=== PATIENT | female | born 1995 | race Caucasian/White ===

== ENCOUNTER 2023-06-09 17:16 | Emergency (ER) | payer OTHER, SELFPAY ==
[2023-06-09 17:17] VITALS: BP 143/72; PULSE 83; RESP 18; TEMP 36.6; O2SAT 98
--- NOTE | 2023-06-09 17:55 | ED.DENTAL ---
HPI - Dental/Oral General Chief complaint: Dental/Oral Stated complaint: Rt tooth pain Source: patient Mode of arrival: ambulatory Limitations: no limitations History of Present Illness HPI Narrative: This is a 28-year-old female with a history of dental decay and recently had a fractured tooth causing pain she rates about a 7/10 with no fever no shortness of breath no nausea vomiting. MD Complaint: tooth pain Teeth map: 1. fractured tooth with surrounding gum inflammation and tender right submandibular gland. Onset (ago): day(s) Duration: constant Severity: moderate Severity scale (1-10): 7 Relieving factors: nothing Exacerbating factors: nothing Related Data Home Medications Medication Instructions Recorded Confirmed bupropion HCl 300 mg 24 hr tablet, 300 mg PO DAILY 06/09/23 06/09/23 extended release buspirone 7.5 mg tablet 7.5 mg PO BID 06/09/23 06/09/23 Allergies Allergy/AdvReac Type Severity Reaction Status Date / Time No Known Allergies Allergy Verified 06/09/23 17:36 Review of Systems Review of Systems: All systems reviewed & are unremarkable except as noted in HPI and below PMFSH Past Medical History Medical History Patient denies medical problems Family History Family History Other Diabetes mellitus Family history of arthritis Hypertension Social History Social History Smoking status: Never smoker Alcohol intake: current Exam Const: General: healthy appearing Nutritional Appearance: well nourished Orientation/consciousness: patient oriented x3 Limitations: no limitations HENMT: Other: fractured tooth right side upper with surrounding gum inflammation Neck: Neck: normal visual inspection and lymphadenopathy Chest: Chest palpation & inspection: normal inspection of the chest Resp: Effort & Inspection: normal respiratory effort Auscultation: clear to auscultation bilaterally Cardio: Rate: regular rate Rhythm: regular rhythm Course Course Emergency Course: patient will receive a dose of pain medication IM Toradol and a dose of p.o. antibiotics and will print out prescriptions for patient. Vital Signs Vital signs: Vital Signs Temperature 36.6 C 06/09/23 17:17 Pulse Rate 83 06/09/23 17:17 Respiratory Rate 18 06/09/23 17:17 Blood Pressure 143/72 H 06/09/23 17:17 Pulse Oximetry 98 06/09/23 17:17 Oxygen Delivery Room Air 06/09/23 17:17 Temperature 36.6 C 06/09/23 17:17 Pulse Rate 83 06/09/23 17:17 Respiratory Rate 18 06/09/23 17:17 Blood Pressure 143/72 H 06/09/23 17:17 Pulse Oximetry 98 06/09/23 17:17 Oxygen Delivery Room Air 06/09/23 17:17 Critical Care Time Critical Care Time Critical Care Time: No Discharge Plan Discharge Clinical Impression: Dental abscess Fracture of tooth Qualifiers: Encounter type: initial encounter Fracture type: closed Qualified Code(s): S02.5XXA - Fracture of tooth (traumatic), initial encounter for closed fracture Patient Disposition: Home, Self-Care Condition: Stable Instructions: Antibiotic Form, Dental Abscess (ED), Toothache (ED) Additional Instructions: Advised take medicine as prescribed and follow-up with Primary/ dentist as soon as possible for further evaluation and treatment. Prescriptions: New tramadol 50 mg tablet 50 mg PO Q6H PRN (Reason: pain) Qty: 20 0RF amoxicillin 500 mg tablet 500 mg PO TID Qty: 30 0RF No Action buspirone 7.5 mg tablet 7.5 mg PO BID bupropion HCl 300 mg tablet extended release 24 hr 300 mg PO DAILY Follow-up/Referrals: UNKNOWN,DOCTOR [Primary Care Provider] - Stand Alone Forms: Work/School Release IP Time of Disposition: 18:00
[2023-06-09 18:19] VITALS: BP 140/70; PULSE 81; RESP 18; TEMP 37; O2SAT 99
[2023-06-09] MEDS: KETOROLAC (*BKC) 60 MG/2 ML VIAL IM (18:25)
[2023-06-09] MEDS: AMOXICILLIN 500 MG CAPSULE PO (18:25)
== END 2023-06-09 18:36 | disposition home or self-care (01) ==
PROVIDERS: Emergency Provider Emergency Medicine
DX: K04.7 Periapical abscess without sinus (principal); S02.5XXA Fracture of tooth (traumatic), initial encounter for closed fracture; Z79.899 Other long term (current) drug therapy; X58.XXXA Exposure to other specified factors, initial encounter
CPT/HCPCS: 96372; 99283; A9270; J1885

== ENCOUNTER 2023-06-23 16:59 | Emergency (ER) | payer OTHER, SELFPAY ==
[2023-06-23 17:04] VITALS: BP 133/86; PULSE 82; RESP 19; TEMP 36.9; O2SAT 100
[2023-06-23 17:15] LABS: Bilirubin Urine Negative (Negative); Blood Urine 3+ (Negative); Color Urine Light Yellow (Yellow); Glucose Urine UA Negative (Negative); Ketones Urine Negative (Negative); Leukocyte Esterase Ur 2+ LEU/UL (Negative); Nitrate Urine Negative (Negative); Protein Urine 2+ (Negative); Specific Grav Ur >= 1.030 (1.010-1.020); Urobilinogen Urine 0.2 mg/dL (0.2-1.0)
[2023-06-23 17:24] LABS: Appearance Urine Cloudy (Clear)
[2023-06-23 17:25] LABS: Add Urine Microscopic? YES; Bacteria Urine 3+ /hpf; Mucus Urine Heavy /lpf; RBC Urine >100 /hpf (0-2); Squamous Epithelial Cell Urine Moderate /hpf (Few); WBC Clumps Urine Present /hpf; WBC Urine 21-30 /hpf (0-3)
--- NOTE | 2023-06-23 17:31 | ED.FEMALEGU ---
HPI - Female Genitourinary General Chief complaint: Urogenital-Female Stated complaint: UTI Time Seen by Provider: 06/23/23 17:02 Source: patient Mode of arrival: ambulatory Limitations: no limitations History of Present Illness HPI Narrative: this is a 28-year-old female well presents with some urinary symptoms with dysuria bladder fullness feels she has a yeast infection recently was treated sinus infection with antibiotics. There is no flank pain no fever chills no hematuria. MD elicited complaint: dysuria Severity: moderate Related Data Home Medications Medication Instructions Recorded Confirmed bupropion HCl 300 mg 24 hr tablet, 300 mg PO DAILY 06/09/23 06/23/23 extended release buspirone 7.5 mg tablet 7.5 mg PO BID 06/09/23 06/23/23 Allergies Allergy/AdvReac Type Severity Reaction Status Date / Time No Known Allergies Allergy Verified 06/23/23 17:07 Review of Systems Review of Systems: All systems reviewed & are unremarkable except as noted in HPI and below PMFSH Past Medical History Medical History Patient denies medical problems Family History Family History Other Diabetes mellitus Family history of arthritis Hypertension Social History Social History Smoking status: Never smoker Alcohol intake: current Exam Const: General: healthy appearing Nutritional Appearance: well nourished Orientation/consciousness: patient oriented x3 Limitations: no limitations Chest: Chest palpation & inspection: normal inspection of the chest Resp: Effort & Inspection: normal respiratory effort Cardio: Rate: regular rate Rhythm: regular rhythm GI: GI Palp: Yes Soft to palpation Auscultation: normal bowel sounds : Other: Suprapubic tenderness with palpation Skin: General skin exam: normal color Rashes: no rashes Course Course Emergency Course: patient with a UA that shows urinary tract infection, recently completed a course of antibiotics for sinus infection and has a vaginal yeast infection, will give a dose of Diflucan 150mg 1 time dose here in the ER and start the patient on a dose of Macrobid. Vital Signs Vital signs: Vital Signs Temperature 36.9 C 06/23/23 17:04 Pulse Rate 82 06/23/23 17:04 Respiratory Rate 19 06/23/23 17:04 Blood Pressure 133/86 06/23/23 17:04 Pulse Oximetry 100 06/23/23 17:04 Oxygen Delivery Room Air 06/23/23 17:04 Temperature 36.9 C 06/23/23 17:04 Pulse Rate 82 06/23/23 17:04 Respiratory Rate 19 06/23/23 17:04 Blood Pressure 133/86 06/23/23 17:04 Pulse Oximetry 100 06/23/23 17:04 Oxygen Delivery Room Air 06/23/23 17:04 MDM - Female Genitourinary Lab Data Labs: Lab Results 06/23/23 Range/Units 17:07 Urine Color Light yellow (Yellow) Urine Appearance Cloudy A (Clear) Urine pH 6.0 (5.0-8.0) Ur Specific [place] >= 1.030 H (1.010-1.020) Urine Protein 2+ H (Negative) Urine Glucose (UA) Negative (Negative) Urine Ketones Negative (Negative) Ur Blood (Man) 3+ H (Negative) Urine Nitrate Negative (Negative) Urine Bilirubin Negative (Negative) Urine Urobilinogen 0.2 (0.2-1.0) mg/dL Leukocyte Esterase Rfl 2+ H (Negative) LUIS ENRIQUE/UL Urine RBC >100 H (0-2) /hpf Urine WBC 21-30 H (0-3) /hpf Urine WBC Clumps Present H (None) /hpf Ur Squamous Epith Cells Moderate H (Few) /hpf Urine Bacteria 3+ H (None) /hpf Urine Mucus Heavy H /lpf Urine Characteristics Clear Critical Care Time Critical Care Time Critical Care Time: No Discharge Plan Discharge Clinical Impression: Vaginal yeast infection Urinary tract infection Qualifiers: Urinary tract infection type: acute cystitis Hematuria presence: without
[2023-06-23] MEDS: NITROFURANTOIN MONOHYD MACROCR 100 MG CAP PO (17:37)
[2023-06-23] MEDS: FLUCONAZOLE 150 MG TABLET PO (17:37)
[2023-06-23 17:40] VITALS: BP 133/86; PULSE 82; RESP 19; TEMP 36.9; O2SAT 100
--- NOTE | 2023-06-26 15:40 | PC.NURSE ---
PRELIMINARY URINE CULTURE RESULTS: ISOLATE1: GREATER THAN 100,000 CFU/ML OF E COLI. TO AWAIT C&S PER DR MARTINEZ
--- NOTE | 2023-06-27 12:29 | PC.NURSE ---
reviewed urine culture, pt started on macrobid, no changes needed at this time per dr carrillo
== END 2023-06-23 17:40 | disposition home or self-care (01) ==
PROVIDERS: Emergency Provider Emergency Medicine
DX: N30.00 Acute cystitis without hematuria (principal); B37.31 Acute candidiasis of vulva and vagina
CPT/HCPCS: 81001; 87077; 87086; 87088; 87186; 99283; A9270

== ENCOUNTER 2023-07-20 21:07 | Emergency (ER) | payer OTHER, SELFPAY ==
[2023-07-20 21:07] VITALS: BP 133/93; PULSE 88; RESP 18; TEMP 36.6; O2SAT 100
--- NOTE | 2023-07-20 21:34 | ED.DENTAL ---
HPI - Dental/Oral General Chief complaint: Dental/Oral Stated complaint: dental abscess Time Seen by Provider: 07/20/23 21:17 Source: patient Mode of arrival: ambulatory Limitations: no limitations History of Present Illness HPI Narrative: Patient is a 28-year-old female with poor dentition and swollen left face. She woke up this evening from having a nap and further noted to left face swelling with some dental pain. She has been having dental pain for the past few days. She has a plan to see a dentist when she can get off of work. Complaint: tooth pain Location: Tooth # (10 and 11) Onset (ago): day(s) (3) Duration: constant Severity: moderate Severity scale (1-10): 5 Relieving factors: nothing Exacerbating factors: chewing, cold, heat and drinking fluids Context: history of dental caries and poor dental care Associated symptoms: gum swelling Treatment prior to arrival: none Related Data Home Medications Medication Instructions Recorded Confirmed bupropion HCl 300 mg 24 hr tablet, 300 mg PO DAILY 06/09/23 07/20/23 extended release buspirone 7.5 mg tablet 7.5 mg PO BID 06/09/23 07/20/23 hydroxyzine pamoate 25 mg capsule 25 mg PO BID 07/20/23 07/20/23 trazodone 50 mg tablet 50 mg PO HS 07/20/23 07/20/23 Allergies Allergy/AdvReac Type Severity Reaction Status Date / Time No Known Allergies Allergy Verified 07/20/23 21:08 [facility] Past Medical History Medical History Patient denies medical problems Family History Family History Other Diabetes mellitus Family history of arthritis Hypertension Social History Social History Smoking status: Never smoker Alcohol intake: current Exam Const: General: healthy appearing Nutritional Appearance: well nourished Orientation/consciousness: patient oriented x3 HENMT: Head: normal to inspection Ears: external ears normal Face/Nose/Sinus: Normal external nose present Other: Generally poor dentition with severe decay at tooth 10 and 11 where the pain is present; gingivitis; left cheek swelling; no abscesses Eyes: Conjunctivae: conjunctivae normal Pupils: Equal, round and reactive pupils present EOM: EOMs intact bilaterally Neck: Neck: normal visual inspection Chest: Chest palpation & inspection: normal inspection of the chest Resp: Effort & Inspection: normal respiratory effort and not labored Auscultation: clear to auscultation bilaterally and no crackles Cardio: Rate: regular rate Rhythm: regular rhythm Heart sounds: no murmurs GI: Inspection: non-distended GI Palp: Yes Soft to palpation and No Tenderness to palpation present (GI) Auscultation: normal bowel sounds : General: Yes bladder normal to palpation Back/Spine/Pelvis: Back: no CVA tenderness Skin: General skin exam: normal color Rashes: no rashes Wounds: no wounds Neuro: General: patient oriented x3 Cranial nerves: Yes Nystagmus not present Speech: normal speech Extrem: General: normal to inspection Psych: Mental Status: mental status grossly normal Affect: normal affect Attitude: cooperative Course Vital Signs Vital signs: Vital Signs Temperature 36.6 C 07/20/23 21:07 Pulse Rate 88 07/20/23 21:07 Respiratory Rate 18 07/20/23 21:07 Blood Pressure 133/93 H 07/20/23 21:07 Pulse Oximetry 100 07/20/23 21:07 Oxygen Delivery Room Air 07/20/23 21:07 Temperature 36.6 C 07/20/23 21:07 Pulse Rate 88 07/20/23 21:07 Respiratory Rate 18 07/20/23 21:07 Blood Pressure 133/93 H 07/20/23 21:07 Pulse Oximetry 100 07/20/23 21:07 Oxygen Delivery Room Air 07/20/23 21:07 MDM - Dental/Oral MDM Narrative Medical decision making narrative: patient is a 28-year-old female with poor dentition and dental pain on the left upper teeth and left face swelling. Dental
[2023-07-20] MEDS: AMOXICILLIN/CLAVULANATE K 875-125 MG TAB 1 TABLET PO (21:41)
[2023-07-20] MEDS: KETOROLAC (*BKC) 60 MG/2 ML VIAL IM (21:43)
== END 2023-07-20 21:55 | disposition home or self-care (01) ==
PROVIDERS: Emergency Provider Emergency Medicine
DX: R68.84 Jaw pain (principal); Z79.899 Other long term (current) drug therapy
CPT/HCPCS: 96372; 99283; A9270; J1885

== ENCOUNTER 2023-12-11 20:54 | Emergency (ER) | payer OTHER, SELFPAY ==
[2023-12-11 20:59] VITALS: BP 110/76; PULSE 106; RESP 18; TEMP 36.4; O2SAT 99
--- NOTE | 2023-12-11 21:01 | ED.EAR ---
HPI - Ear Problem General Chief complaint: Ear Stated complaint: ear pain Time Seen by Provider: 12/11/23 20:56 Source: patient Mode of arrival: ambulatory Limitations: no limitations History of Present Illness HPI Narrative: 28 year old female presents to the Emergency Department complaining of intense itching to bilateral ear canals and some ear pain. Patient states it began yesterday. Concerned that her dogs have ear mites and that she may have contracted them. MD Complaint: ear pain and other (intense itching to bilateral ear canals) Location: bilateral Duration: constant Severity: moderate Relieving factors: nothing Exacerbating factors: nothing Related Data Home Medications Medication Instructions Recorded Confirmed bupropion HCl 300 mg 24 hr tablet, 300 mg PO DAILY 06/09/23 12/11/23 extended release buspirone 7.5 mg tablet 7.5 mg PO BID 06/09/23 12/11/23 hydroxyzine pamoate 25 mg capsule 25 mg PO BID 07/20/23 12/11/23 trazodone 50 mg tablet 50 mg PO HS 07/20/23 12/11/23 Allergies Allergy/AdvReac Type Severity Reaction Status Date / Time No Known Allergies Allergy Verified 07/20/23 21:08 Review of Systems Review of Systems: All systems reviewed & are unremarkable except as noted in HPI and below Constitutional: Constitutional: Reports as per HPI Eyes: Eyes: Reports as per HPI ENT: Reports system reviewed and no additional complaints, except as documented Cardiovascular: Cardiovascular: Reports as per HPI Respiratory: Respiratory: Reports as per HPI Gastrointestinal: Gastrointestinal: Reports as per HPI Genitourinary: Genitourinary: Reports no additional female genitourinary complaints Musculoskeletal: Musculoskeletal: Reports no additional musculoskeletal complaints Neurologic: Reports system reviewed and no additional complaints, except as documented PMFSH Past Medical History Medical History Patient denies medical problems Family History Family History Other Diabetes mellitus Family history of arthritis Hypertension Social History Social History Smoking status: Never smoker Alcohol intake: current Exam Const: General: healthy appearing Nutritional Appearance: well nourished Orientation/consciousness: patient oriented x3 Limitations: no limitations HENMT: Head: normal to inspection Ears: external ears normal (no definite ear mite noted in canal) Face/Nose/Sinus: Normal external nose present Face and sinus: normal facial exam Mouth: Yes Normal oral and palatal mucosa present Eyes: Pupils: Equal, round and reactive pupils present EOM: EOMs intact bilaterally Direct Ophthalmoscopy: no photophobia Neck: Neck: normal visual inspection Chest: Chest palpation & inspection: normal inspection of the chest Resp: Effort & Inspection: normal respiratory effort Cardio: Rate: regular rate GI: Inspection: non-distended Skin: General skin exam: normal color Neuro: General: patient oriented x3 Speech: normal speech Gait exam (Neuro): Normal gait present Other: grossly normal Extrem: General: normal to inspection Psych: Mental Status: mental status grossly normal Course Course Emergency Course: 28 y/o female presents to the ED c/o bilateral intense itching to ear canals. Onset yesterday. States her dogs have ear mites and concerned she may now also. PE: no definite ear mites noted in canals Tx: cortisporin otic susp Rx and Instructions Discharge Plan Discharge Clinical Impression: Ear itching Condition: Stable Instructions: Antibiotic Form, Antibiotic/Anti-inflammatory Combinations (Into the ear) Additional Instructions: Use medication as prescribed Follow up Primary Care Physician Patient Language: Romanian Prescriptions: No Action buspirone 7.5 mg tablet 7
[2023-12-11] MEDS: NEOMYCIN/POLYMYXIN/HYDROCORT OT SUSP 10 ML BTL (*BKC) 3 DROP EACH EAR (21:05)
[2023-12-11 21:15] VITALS: BP 122/85; PULSE 74; RESP 18; O2SAT 99
== END 2023-12-11 21:15 | disposition home or self-care (01) ==
PROVIDERS: Emergency Provider Emergency Medicine
DX: L29.8 Other pruritus (principal); Z79.899 Other long term (current) drug therapy
CPT/HCPCS: 99281; A9270

== ENCOUNTER 2023-12-22 20:10 | Emergency (ER) | payer OTHER, SELFPAY ==
[2023-12-22 20:13] VITALS: BP 130/92; PULSE 93; RESP 18; TEMP 36.6; O2SAT 97
[2023-12-22 20:20] VITALS: BP 130/92; PULSE 93; RESP 18; TEMP 36.6; O2SAT 97
[2023-12-22 20:25] LABS: Bilirubin Urine Negative (Negative); Blood Urine Negative (Negative); Color Urine Light Yellow (Yellow); Glucose Urine UA Negative (Negative); Ketones Urine Trace (Negative); Leukocyte Esterase Ur 2+ LEU/UL (Negative); Nitrate Urine Negative (Negative); Protein Urine Negative (Negative); Specific Grav Ur >= 1.030 (1.010-1.020); Urobilinogen Urine 0.2 mg/dL (0.2-1.0)
[2023-12-22 20:33] LABS: Add Urine Microscopic? YES; Amorphous Sediment Urine Moderate; Appearance Urine Cloudy (Clear); Bacteria Urine 4+ /hpf; Mucus Urine Heavy /lpf; RBC Urine 0-2 /hpf (0-2); Squamous Epithelial Cell Urine Many /hpf (Few); WBC Urine 16-20 /hpf (0-3)
--- NOTE | 2023-12-22 20:38 | ED.FEMALEGU ---
HPI - Female Genitourinary General Chief complaint: Urogenital-Female Stated complaint: urogenital female Time Seen by Provider: 12/22/23 20:14 Source: patient Mode of arrival: ambulatory Limitations: no limitations History of Present Illness HPI Narrative: this is a 28-year-old female who presents with lower back pain and urine hesitancy with no dysuria no hematuria no fever chills no abdominal pain no nausea vomiting or diarrhea constipation. MD elicited complaint: back pain and flank pain Onset (ago): day(s) Related Data Home Medications Medication Instructions Recorded Confirmed bupropion HCl 300 mg 24 hr tablet, 300 mg PO DAILY 06/09/23 12/22/23 extended release buspirone 7.5 mg tablet 7.5 mg PO BID 06/09/23 12/22/23 hydroxyzine pamoate 25 mg capsule 25 mg PO BID 07/20/23 12/22/23 trazodone 50 mg tablet 50 mg PO HS 07/20/23 12/22/23 Allergies Allergy/AdvReac Type Severity Reaction Status Date / Time No Known Allergies Allergy Verified 07/20/23 21:08 Review of Systems Review of Systems: All systems reviewed & are unremarkable except as noted in HPI and below PMFSH Past Medical History Medical History Patient denies medical problems Family History Family History Other Diabetes mellitus Family history of arthritis Hypertension Social History Social History Smoking status: Never smoker Alcohol intake: current Exam Const: General: healthy appearing Nutritional Appearance: well nourished Orientation/consciousness: patient oriented x3 Limitations: no limitations Resp: Effort & Inspection: normal respiratory effort Auscultation: clear to auscultation bilaterally Cardio: Rate: regular rate Rhythm: regular rhythm GI: GI Palp: Yes Soft to palpation Auscultation: normal bowel sounds : General: Yes bladder normal to palpation Urinary Catheter: Urinary Catheter: patent and draining and urine cloudy Back/Spine/Pelvis: Back: CVA tenderness Skin: General skin exam: normal color Rashes: no rashes Course Course Emergency Course: Urinalysis shows 4+ bacteria consistent with urinary tract infection a dose of IM 1g ceftriaxone was administered. Vital Signs Vital signs: Vital Signs Temperature 36.6 C 12/22/23 20:13 Pulse Rate 93 12/22/23 20:13 Respiratory Rate 18 12/22/23 20:13 Blood Pressure 130/92 H 12/22/23 20:13 Pulse Oximetry 97 12/22/23 20:13 Oxygen Delivery Room Air 12/22/23 20:13 Temperature 36.6 C 12/22/23 20:20 Pulse Rate 93 12/22/23 20:20 Respiratory Rate 18 12/22/23 20:20 Blood Pressure 130/92 H 12/22/23 20:20 Pulse Oximetry 97 12/22/23 20:20 Oxygen Delivery Room Air 12/22/23 20:20 MDM - Female Genitourinary Lab Data Labs: Lab Results 12/22/23 Range/Units 20:15 Urine Color Light yellow (Yellow) Urine Appearance Cloudy A (Clear) Urine pH 6.0 (5.0-8.0) Ur Specific [place] >= 1.030 H (1.010-1.020) Urine Protein Negative (Negative) Urine Glucose (UA) Negative (Negative) Urine Ketones Trace H (Negative) Ur Blood (Man) Negative (Negative) Urine Nitrate Negative (Negative) Urine Bilirubin Negative (Negative) Urine Urobilinogen 0.2 (0.2-1.0) mg/dL Leukocyte Esterase Rfl 2+ H (Negative) LUIS ENRIQUE/UL Urine RBC 0-2 (0-2) /hpf Urine WBC 16-20 H (0-3) /hpf Ur Squamous Epith Cells Many H (Few) /hpf Amorphous Sediment Moderate H (None) Urine Bacteria 4+ H (None) /hpf Urine Mucus Heavy H /lpf Critical Care Time Critical Care Time Critical Care Time: No Discharge Plan Discharge Clinical Impression: Urinary tract infection Patient Disposition: Home, Self-Care Condition: Stable Instructions: Antibiotic Form, Urinary Tract Infection in Women (ED) Additional Instructions:
[2023-12-22] MEDS: cefTRIAXone 1 GM, LIDOCAINE HCL 1% LOCAL INJ 2.1 ML IM (20:43)
--- NOTE | 2023-12-25 12:52 | PC.NURSE ---
FINAL URINE CULTURE RESULTS: NO GROWTH
== END 2023-12-22 21:10 | disposition home or self-care (01) ==
PROVIDERS: Emergency Provider Emergency Medicine
DX: N39.0 Urinary tract infection, site not specified (principal); Z79.899 Other long term (current) drug therapy
CPT/HCPCS: 81001; 87086; 96372; 99283; J0696

== ENCOUNTER 2024-08-21 13:35 | Emergency (ER) | payer OTHER, SELFPAY ==
[2024-08-21 13:58] VITALS: BP 141/76; PULSE 96; RESP 18; TEMP 36.6; O2SAT 96
--- OUTSIDE RECORDS SUMMARY | 2024-08-21 14:52 | XMS_ITS | CONTINUITY OF CARE DOCUMENT ---
Author Name mery ordonez Address Unknown Organization [facility] Address [address] [place] [address] Phone [phone] Care Team Providers Care Sed [employer] Teacher Name Role Phone Adi Lopez MD Unavailable Adi Lopez MD Unavailable INSURANCE PROVIDERS Payer name Policy type / Coverage type [place] [employer] ID [place] MEDICA[place] Medicaid [id number]
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
--- OUTSIDE RECORDS SUMMARY | 2024-08-21 14:52 | XMS_ITS ---
Author Organization [facility] Address [address] [place] [address] Care Team Providers Care Transfill Technician Name Role Phone Lo Castro Primary Care Provider REASON FOR VISIT 6 month f/u Encounters Encounter Location Date Provider Diagnosis [address] [place] [address] 04/14/2024 Lo Castro Plan Of Treatment No Information Progress Notes * Dodie GILBERTDOB:[birth year] (29 yo F)Acc No.[id number]:04/14/2024 UNLOCKED PROGRESS NOTE Patient: Dodie LARSON Provider: LEATHA Merrill, WEB DEVELOPMENT MANAGER, SLURRY MIXER-C :1995 A ge:29 Y S ex:Female Date:04/14/2024 Address:[address] [place], [place] [id number] Subjective: * Chief Complaints: * 1 . 6 month f/u. * Medical History: Objective: * Vitals: Assessment: Plan: * Treatment: * * Electronic signature of Devon Csatro , [id number] on 08/21/2024 at 02:52 PM MEDICAL RECORDS SPECIALIST Sign off status: Pending * Provider: LEATHA Merrill, WEB DEVELOPMENT MANAGER, SLURRY MIXER-C Date: Generated for [employer] crews/Dank/eTransmitting on: 0 08/21/2024 02:52 PM MEDICAL RECORDS SPECIALIST
--- OUTSIDE RECORDS SUMMARY | 2024-08-21 14:53 | XMS_ITS | Patient Health Record ---
Author Organization On license of [facility] Address [address] [place] [address] Care Team Providers Care Miter Grinder Operator Name Role Phone Lo Castro Primary Care Provider Lorraine Post Unavailable [phone] Sierra Bhatt Unavailable [phone] Allergies No Known Allergies Reason For Referral No Information Medications Medication SIG (Take, Route, Frequency, Duration) Notes Start Date End Date Status Wellbutrin XL 150 MG 1 tablet in the mor kimmy Orally Once a day for 30 days Active busPIRone HCl 15 MG as directed Orally H fpc a tablet in the morning AND one full tablet in the evening for 30 days Active hydrOXYzine Pamoate 25 MG 1 capsule as n eeded Orally One to two times daily for 30 days Active traZODone HCl 50 MG 1 tablet at bedtime as needed Orally Once a day for 30 days Active Social History Tobacco Use: Social History Observation Description Date Details (start date - stop date) Current Smoker NA - NA Dont use, Tobacco Use/Smoking Question Answer Notes Are you a current every day smoker Additional Findings: Tobacco User Moderate cigar ette smoker (10-19 cigs/day) Problems Problem Type SNOMED Code ICD Code Onset Dates Problem Status W/U Status Risk Notes Problem Generalized anxiety disorder (47327025) Generalized anxiety disorder (F41.1) Active confirmed Problem Major depression (700766957) Major depression (F32.9) Active confirmed continue to eval for bipolar chemistry Problem Methamphetamine abuse (289117319) Methamphetamine abuse (F15.10) Active confirmed reports no use since first week of September 2022 Problem Sleep disturbance (03202658) Sleep disturbance, unspecified (G47.9) Active confirmed Encounters Encounter Location Date Provider Diagnosis [address] [address] 09/19/2023 Lo Castro Major depression F32 .9 ; Sleep disturbance, unspecified G47.9 ; Generalized anxiety disorder F41.1 and Methamphetamine abuse F15.10 [facility] [address] [address] 04/15/2024 Loalyson Castro Major depression F32 .9 ; Sleep disturbance, unspecified G47.9 ; Generalized anxiety disorder F41.1 and Methamphetamine abuse F15.[address] [address] 06/24/2024 Lo Castro [address] [address] 09/14/2023 Lorraine Post Major depression F32 .9 ; Sleep disturbance, unspecified G47.9 and Generalized anxiety disorder F41.[address] [address] 11/30/2023 [place] [address] 12/11/[address] [address] 04/01/2024 Lo Castro Assessments Encounter Date Diagnosis (ICD Code) Assessment Notes Treatment Notes Treatment Clinical Notes Section Notes 09/14/2023 Major depression (ICD-10 - F32.9) continue to eval for bipolar chemistry 09/19/2023 Major depression (ICD-10 - F32.9) continue to eval for bipolar chemistry 04/15/2024 Major depression (ICD-10 - F32.9) continue to eval for bipolar chemistry Decreasing due to internal restlessness/tremor. Discussed r/b/se in length. 04/15/2024 Sleep disturbance, unspecified (ICD-10 - G47.9) 09/19/2023 Sleep disturbance, unspecified (ICD-10 - G47.9) 09/14/2023 Sleep disturbance, unspecified (ICD-10 - G47.9) 09/19/2023 Generalized anxiety disorder (ICD-10 - F41.1) 09/14/2023 Generalized anxiety disorder (ICD-10 - F41.1) 04/15/2024 Generalized anxiety disorder (ICD-10 - F41.1) 09/19/2023 Methamphetamine abuse (ICD-10 - F15.10) reports no use since first week of September 2022 Reports sobriety has been going well. Encouraged groups/counseling. 04/15/2024 Methamphetamine abuse (ICD-10 - F15.10) reports no use since first week of September 2022 Reports sobriety has been going well. States 2 months with no use of anything besides one cup of coffee. Encouraged groups/counseling. 09/19/2023 Other Reasons, potential benefits, potential risks, interactions [...] May also contact the 24-hour crisis hotline ([facility]), refer to the closest emergency room or [...] assess appearance, affect, AIMS, or vital signs. 04/15/2024 Other Reasons, potential benefits, potential risks, [...] AIMS, or vital signs. Plan Of Treatment No Information Insurance Providers Payer Name Payer Address Payer Phone Subscriber Number Group Number Insured Name Patient Relationship to Insured Coverage Start Date Coverage End Date [id number] [address] [place] [address] [id number] Dodie Rashid Self - patient is the insured 3 [employer] [address] [place] [address] [id number] Dodie Rashid Self - patient is the insured 3 Medical (General) History Surgical History Surgery Date(Month/Year) tubing surgery (1 year old) 1994 dilatation and curettage (miscarriage) 2 016 Hospitalization History Reason Date(Month/Year) [facility] [place] 2021 [facility] 2022
--- OUTSIDE RECORDS SUMMARY | 2024-08-21 14:53 | XMS_ITS ---
Author Organization Formerly [facility] Address [address] [place] [address] Care Team Providers Care Subway Conductor Name Role Phone Lo Castro Primary Care Provider REASON FOR VISIT Encounters Encounter Location Date Provider Diagnosis [address] [place] [address] 06/24/2024 Lo Castro Plan Of Treatment No Information Progress Notes * Dodie GILBERTDOB:[birth year] (29 yo F)Acc No.[id number]:06/24/2024 UNLOCKED PROGRESS NOTE Patient: Abelardo ALFREDDodie HERNANDEZ :1995 A ge:29 Y S ex:Female Address:[address] [place] [address], [id number] * * Date:
--- OUTSIDE RECORDS SUMMARY | 2024-08-21 14:53 | XMS_ITS | Data Portability ---
Author Organization [facility] [place] [facility] Address [address] [place] [address] Care Team Providers Care Balance Staff Staker Name Role Phone LORETO RENDON Basic Sciences Professor Assessment Encounter Date Assessment Date Assessment LastModified by Organization Details LastModified Time 07/07/2020 07/07/2020 Natanael Dickson PA-S Not available 07/07/2020 15:38:27 Plan of Treatment Reminders Order Date Submit Date Provider Last Modified By Organization Details Last Modified Time Details Appointments None recorded. Lab vitamin D, 25-hydroxy , total, serum 2020 [facility], [address] [facility], [facility] [address], [place], [address], 08:21:50 HbA1c (hemoglobi n A1c), blood 2020 [facility], [address] [facility], [facility] [address], [place], [address], 08:21:49 TSH, ultra-sens itive, serum 2020 [facility], [address], [place], [address], 08:21:51 CMP, serum or plasma 2020 [facility], [address], [place], [address], 08:21:45 lipid panel, serum 2020 [facility], [address], [place], [address], 08:21:47 CBC 2020 [facility], [address], [place], [address], 08:21:46 mthfr (methylene tetrahydro folate reductase) mutation, blood/tiss ue 2020 021 [facility], [address], [address], [place], [address], 09:57:07 CBC w/ auto diff 2020 021 [facility], [address], [address], [place], [address], 13:30:18 CMP, serum or plasma 2020 021 [facility], [address], [address], [place], [address], 13:30:19 lh + FSH, serum 2020 021 [facility], [address]aylee [address], [address], [place], [address], 13:30:20 estradiol, serum 2020 021 [facility], [address]ay[address], [address], [place], [address], 13:30:20 TSH, ultra-sens itive, serum 2020 021 [facility], [address], [address], [place], [address], 1 13:30:19 HbA1c (hemoglobi n A1c), blood 2020 021 [facility], [address] [facility] [address], [address], [place], [address], 1 13:30:19 testostero ne, total, serum 2020 021 [facility], [address] [facility] [address], [address], [place], [address], 1 13:30:20 dhea-sulfa te, serum 2020 021 [facility], [address] [place] [address], [address], [place], [address], 1 13:30:19 CT + NG + TV, DNA, urine/swab 2020 021 [facility], [address] [facility], [address], [place], [address], 1 13:30:21 bacterial vaginosis + vaginitis panel, vaginal 2014 015 [facility], [address], [place], [address], 5 10:34:30 HSV (1+2) DNA, qual, PCR, unspecifie d specimen 2014 015 [email or web address], [address], [place], [address], 5 10:34:30 test, urine 2014 015 [email or web address] In-Office Order, Internal Use Only DO Not Attach Compendium DO Not Attach Compendium, Do Not Delete/merge, [id number] 5 12:15:52 urinalysis , dipstick 2014 015 [email or web address] In-Office Order, Internal Use Only DO Not Attach Compendium DO Not Attach Compendium, Do Not Delete/merge, [id number] 5 12:15:52 test, urine 2013 014 [email or web address] In-Office Order, Internal Use Only DO Not Attach Compendium DO Not Attach Compendium, Do Not Delete/merge, [id number] 5 13:46:12 urinalysis , dipstick 2013 014 [email or web address] In-Office Order, Internal Use Only DO Not Attach Compendium DO Not Attach Compendium, Do Not Delete/merge, [id number] 5 13:46:12 Referral None recorded. Procedures None recorded. Surgeries None recorded. Imaging XR, hysterosal pingogram 2020 021 [facility] [[email or web address] ([facility]), [address] [place], [address], 15:07:05 Medication Orders 28 mg iron-800 mcg tablet 2020 021 [id number], [address] [facility], [place], [place], [id number], 09:57:45 Patient TargetsNo targets recorded. Patient Instructions Encounter Date Encounter Id Patient Instructions Last Modified By Organization Details Last Modified Time 07/07/2020 [id number] Quitting Tobacco : Care Instructions Not available 07/08/2020 09:57:15 03/29/2021 [id number] influenza (flu) vaccine: care instructions Not available 03/29/2021 10:18:01 A healthy lifest yle: care instructions Not available 03/29/2021 10:18:01 Learning About Benefits of Quitting Smoking Not available 03/29/2021 10:18:02 tobacco cessation Not availabl e 03/29/2021 10:18:02 gastroesophageal reflux disease (GERD): care instructions Not available 03/29/2021 10:21:47 Increase intake of fresh fruits, and vegetables. Avoid packaged foods and fast foods. Follow a low salt diet, drink at least 8-10 8oz glasses of water a day, exercise most days of the week. Take all medications as prescribed. Keep appointments with PCP and all specialists. Not available 03/29/2021 10:14:38 follow up as nee ded, yearly to keep established with provider Not available 03/29/2021 10:18:26 Reason for Referral None Reported. Results Created Date Observation Date Name Description Value Unit Range Abnormal Flag Note LastModifiedBy Organization Detail LastModifiedTime 08/12/19 15 08/12/2014 urina lysis , dipst ick Leukocytes Small Not Available In-Offi ce Order Internal Use Only DO Not Attach Compendium DO Not Attach Compendium, Do Not Delete/merge, [id number] 08/12/2014 16:55:49 08/12/1908/12/2014 urina lysis , dipst ick Nitrite negati ve Not Available In-Office Order Internal Use Only DO Not Attach Compendium DO Not Attach Compendium, Do Not Delete/merge, 08/12/2014 16:55:49 08/12/1908/12/2014 urina lysis , dipst ick Urobilinogen .2 Not Available In-Of fice Order Internal Use Only DO Not Attach Compendium DO Not Attach Compendium, Do Not Delete/merge, 08/12/2014 16:55:49 08/12/19 15 08/12/2014 urina lysis , dipst ick Protein Negati ve Not Available In-Office Order Internal Use Only DO Not Attach Compendium DO Not Attach Compendium, Do Not Delete/merge, 08/12/2014 16:55:49 08/12/1908/12/2014 urina lysis , dipst ick pH 6.0 Not Available In-Office Order Internal Use Only DO Not Attach Compendium DO Not Attach Compendium, Do Not Delete/merge, 08/12/2014 16:55:49 08/12/19 15 08/12/2014 urina lysis , dipst ick Blood Modera te Not Available In-Office Order Internal Use Only DO Not Attach Compendium DO Not Attach Compendium, Do Not Delete/merge, 08/12/2014 16:55:49 08/12/19 15 08/12/2014 urina lysis , dipst ick Specific Sellers 1.025 Not Available In-Off ice Order Internal Use Only DO Not Attach Compendium DO Not Attach Compendium, Do Not Delete/merge, 08/12/2014 16:55:49 08/12/1908/12/2014 urina lysis , dipst ick Ketone Negati ve Not Available In-Office Order Internal Use Only DO Not Attach Compendium DO Not Attach Compendium, Do Not Delete/merge, 08/12/2014 16:55:49 08/12/1908/12/2014 urina lysis , dipst ick Bilirubin Negati ve Not Available In-Office Order Internal Use Only DO Not Attach Compendium DO Not Attach Compendium, Do Not Delete/merge, 08/12/2014 16:55:49 08/12/1908/12/2014 urina lysis , dipst ick Glucose Negati ve Not Available In-Office Order Internal Use Only DO Not Attach Compendium DO Not Attach Compendium, Do Not Delete/merge, 08/12/2014 16:55:49 08/12/1908/12/2014 urina lysis , dipst ick Appearance Clear Not Available In-Offi ce Order Internal Use Only DO Not Attach Compendium DO Not Attach Compendium, Do Not Delete/merge, 08/12/2014 16:55:49 08/12/1908/12/2014 urina lysis , dipst ick Color Yellow Not Available In-Office Order Internal Use Only DO Not Attach Compendium DO Not Attach Compendium, Do Not Delete/merge, 08/12/2014 16:55:49 08/12/1908/12/2014 pregn gustavo test, urine HCG negati ve Not Available In-Office Order Internal Use Only DO Not Attach Compendium DO Not Attach Compendium, Do Not Delete/merge, [id number] 08/12/2014 16:55:49 05/11/20 14 05/11/2014 urina lysis , dipst ick Leukocytes Negati ve Not Available In-Office Order Internal Use Only DO Not Attach Compendium DO Not Attach Compendium, Do Not Delete/merge, [id number] 05/11/2014 15:49:56 05/11/20 14 05/11/2014 urina lysis , dipst ick Nitrite negati ve Not Available In-Office Order Internal Use Only DO Not Attach Compendium DO Not Attach Compendium, Do Not Delete/merge, [id number] 05/11/2014 15:49:56 05/11/20 14 05/11/2014 urina lysis , dipst ick Urobilinogen .2 Not Available In-Of fice Order Internal Use Only DO Not Attach Compendium DO Not Attach Compendium, Do Not Delete/merge, 05/11/2014 15:49:56 05/11/20 14 05/11/2014 urina lysis , dipst ick Protein Negati ve Not Available In-Office Order Internal Use Only DO Not Attach Compendium DO Not Attach Compendium, Do Not Delete/merge, 05/11/2014 15:49:56 05/11/20 14 05/11/2014 urina lysis , dipst ick pH 6.0 Not Available In-Office Order Internal Use Only DO Not Attach Compendium DO Not Attach Compendium, Do Not Delete/merge, 05/11/2014 15:49:56 05/11/20 14 05/11/2014 urina lysis , dipst ick Blood Negati ve Not Available In-Office Order Internal Use Only DO Not Attach Compendium DO Not Attach Compendium, Do Not Delete/merge, 05/11/2014 15:49:56 05/11/20 14 05/11/2014 urina lysis , dipst ick Specific Sellers 1.025 Not Available In-Off ice Order Internal Use Only DO Not Attach Compendium DO Not Attach Compendium, Do Not Delete/merge, 05/11/2014 15:49:56 05/11/20 14 05/11/2014 urina lysis , dipst ick Ketone Negati ve Not Available In-Office Order Internal Use Only DO Not Attach Compendium DO Not Attach Compendium, Do Not Delete/merge, [id number] 05/11/2014 15:49:56 05/11/20 14 05/11/2014 urina lysis , dipst ick Bilirubin Negati ve Not Available In-Office Order Internal Use Only DO Not Attach Compendium DO Not Attach Compendium, Do Not Delete/merge, [id number] 05/11/2014 15:49:56 05/11/20 14 05/11/2014 urina lysis , dipst ick Glucose Negati ve Not Available In-Office Order Internal Use Only DO Not Attach Compendium DO Not Attach Compendium, Do Not Delete/merge, [id number] 05/11/2014 15:49:56 05/11/20 14 05/11/2014 urina lysis , dipst ick Appearance Slight ly Cloudy Not Available In-Office Order Internal Use Only DO Not Attach Compendium DO Not Attach Compendium, Do Not Delete/merge, [id number] 05/11/2014 15:49:56 05/11/20 14 05/11/2014 urina lysis , dipst ick Color Yellow Not Available In-Office Order Internal Use Only DO Not Attach Compendium DO Not Attach Compendium, Do Not Delete/merge, [id number] 05/11/2014 15:49:56 05/11/20 14 05/11/2014 pregn gustavo test, urine HCG negati ve Not Available In-Office Order Internal Use Only DO Not Attach Compendium DO Not Attach Compendium, Do Not Delete/merge, [id number] 05/11/2014 15:49:56 08/12/19 15 08/17/2014 bacte rial vagin osis + vagin itis panel , vagin al atopobium vaginae LOW - 0 score Not Available [facility] ([facility]) [address] [facility], [place], [address], 08/18/2014 14:35:15 08/12/19 15 08/17/2014 bacte rial vagin osis + vagin itis panel , vagin al bvab 2 LOW - 0 score Not Available [facility] ([facility]) [address] [facility], [place], [address], 08/18/2014 14:35:15 08/12/19 15 08/17/2014 bacte rial vagin osis + vagin itis panel , vagin al megasphaera 1 LOW - 0 score CALCU LATE TOTAL SCORE BY SCARLETT Barron THE 3 INDIV IDUAL BACTE RIAL VAGIN OSIS (BV) MARKE R SCORE S TOGET HER. TOTAL SCORE IS INTER PRETE D FOLLO WS: . TOTAL SCORE 0-1: INDIC ATES THE ABSEN CE OF BV. TOTAL SCORE 2: INDET ERMIN ATE FOR BV. ADDIT IONAL CLINI STAN DATA SHOUL D BE EVALU ATED TO ESTAB FREDY A DIAGN OSIS. TOTAL SCORE 3-6: INDIC ATES THE PRESE NCE OF BV. . THIS TEST WAS DEVEL OPED AND ITS PERFO RMANC E CRISTIN CTERI STICS DETER MINED BY [employer]. IT HAS NOT BEEN CLEAR ED OR APPRO FLORA BY THE FOOD AND DRUG ADMIN ISTRA TION. THE FDA HAS DETER MINED THAT SUCH CLEAR ANCE OR APPRO NYDIA IS NOT NECES CHARLEEN. Not Available [facility] ([facility]) [address] [place], [address], 08/18/2014 14:35:15 08/12/19 15 08/17/2014 bacte rial vagin osis + vagin itis panel , vagin al jasmina albicans, JOHN NEGATI VE negati ve Not Available [facility] ([facility]) [address] [place], [address], 08/18/2014 14:35:15 08/12/19 15 08/17/2014 bacte rial vagin osis + vagin itis panel , vagin al jasmina glabrata, JOHN NEGATI VE negati ve THIS TEST WAS DEVEL OPED AND ITS PERFO RMANC E CRISTIN CTERI STICS DETER MINED BY [facility]. IT HAS NOT BEEN CLEAR ED OR APPRO FLORA BY THE FOOD AND DRUG ADMIN ISTRA TION. THE FDA HAS DETER MINED THAT SUCH CLEAR ANCE OR APPRO NYDIA IS NOT NECES CHARLEEN. Not Available [facility] ([facility]) [address] [place], [address], 08/18/2014 14:35:15 08/12/19 15 08/18/2014 bacte rial vagin osis + vagin itis panel , vagin al trich vag by JOHN NEGATI VE negati ve Not Available [facility] ([facility]) [address] [place], [address], 08/18/2014 14:35:15 08/12/19 15 08/18/2014 bacte rial vagin osis + vagin itis panel , vagin al chlamydia trachomatis, JOHN NEGATI VE negati ve Not Available [facility] ([facility]) [address] [place], [address], 08/18/2014 14:35:15 08/12/19 15 08/18/2014 bacte rial vagin osis + vagin itis panel , vagin al neisseria gonorrhoeae, JOHN NEGATI VE negati ve Not Available [facility] ([facility]) [address] [place], [address], 08/18/2014 14:35:15 08/12/19 15 08/15/2014 HSV (1+2) DNA, qual, PCR, unspe cifie d speci men hsv 1 JOHN NEGATI VE negati ve Not Available [facility] ([facility]) [address] [place], [address], 08/18/2014 14:35:16 08/12/19 15 08/15/2014 HSV (1+2) DNA, qual, PCR, unspe cifie d speci men hsv 2 JOHN NEGATI VE negati ve Not Available [facility] ([facility]) [address] [place], [address], 08/18/2014 14:35:16 03/29/20 21 03/30/2021 COMP. METAB OLIC PANEL (14) glucose 85 mg/dL 65-99 Not Available [facility] ([facility]) [address] [place], [address], 03/30/2021 08:21:45 03/29/2003/30/2021 COMP. METAB OLIC PANEL (14) BUN 8 mg/dL 6-20 Not Available [facility] ([facility]) [address] [facility], [place], [address], 03/30/2021 08:21:45 03/29/2003/30/2021 COMP. METAB OLIC PANEL (14) creatinine 0.57 mg/dL 0.57-1 .00 Not Available [facility] ([facility]) [address] [facility], [place], [address], 03/30/2021 08:21:45 03/29/2003/30/2021 COMP. METAB OLIC PANEL (14) eGFR if nonafricn AM 127 mL/mi n/1.7 3 >59 Not Available [facility] ([facility]) [address] [facility], [place], [address], 03/30/2021 08:21:45 03/29/2003/30/2021 COMP. METAB OLIC PANEL (14) eGFR if africn AM 147 mL/mi n/1.7 3 >59 Lab teetee curre ntly repor ts eGFR in compl iance with the curre nt recom menda tions of the Natio nal Kidne y Found ation . [facility] will updat e repor ting as new guide lines are publi shed from the NKF-A SN Task force . Not Available [facility] ([facility]) [address] [facility], [place], [address], 03/30/2021 08:21:45 03/29/2003/30/2021 COMP. METAB OLIC PANEL (14) BUN/creatini ne ratio 14 9-23 Not Available [facility] ([facility]) [address] [facility], [place], [address], 03/30/2021 08:21:45 03/29/20 21 03/30/2021 COMP. METAB OLIC PANEL (14) sodium 139 mmol/ L 134-14 4 Not Available [facility] ([facility]) [address] [place], [address], 03/30/2021 08:21:45 03/29/20 21 03/30/2021 COMP. METAB OLIC PANEL (14) potassium 4.4 mmol/ L 3.5-5. 2 Not Available [facility] ([facility]) [address] [place], [address], 03/30/2021 08:21:45 03/29/2003/30/2021 COMP. METAB OLIC PANEL (14) chloride 103 mmol/ L 96-106 Not Available [facility] ([facility]) [address] [facility], [place], [address], 03/30/2021 08:21:45 03/29/20 21 03/30/2021 COMP. METAB OLIC PANEL (14) carbon dioxide, total 22 mmol/ L 20-29 Not Available [facility] ([facility]) [address] [place], [address], 03/30/2021 08:21:45 03/29/20 21 03/30/2021 COMP. METAB OLIC PANEL (14) calcium 9.6 mg/dL 8.7-10 .2 Not Available [facility] ([facility]) [address] [place], [address], 03/30/2021 08:21:45 03/29/20 21 03/30/2021 COMP. METAB OLIC PANEL (14) protein, total 7.2 g/dL 6.0-8. 5 Not Available [facility] ([facility]) [address] [place], [address], 03/30/2021 08:21:45 03/29/20 21 03/30/2021 COMP. METAB OLIC PANEL (14) albumin 4.5 g/dL 3.9-5. 0 Not Available [facility] ([facility]) [address] [facility], [place], [address], 03/30/2021 08:21:45 03/29/20 21 03/30/2021 COMP. METAB OLIC PANEL (14) globulin, total 2.7 g/dL 1.5-4. 5 Not Available [facility] ([facility]) [address] [facility], [place], [address], 03/30/2021 08:21:45 03/29/2003/30/2021 COMP. METAB OLIC PANEL (14) A/G ratio 1.7 1.2-2. 2 Not Available [facility] ([facility]) [address] [facility], [place], [address], 03/30/2021 08:21:45 03/29/2003/30/2021 COMP. METAB OLIC PANEL (14) bilirubin, total 0.3 mg/dL 0.0-1. 2 Not Available [facility] ([facility]) [address] [facility], [place], [address], 03/30/2021 08:21:45 03/29/2003/30/2021 COMP. METAB OLIC PANEL (14) alkaline phosphatase 147 IU/L 44-121 above high normal Ple ase note refer ence inter nydia vasquez e Not Available [facility] ([facility]) [address] [facility], [place], [address], 03/30/2021 08:21:45 03/29/2003/30/2021 COMP. METAB OLIC PANEL (14) AST (SGOT) 40 IU/L 0-40 Not Available [facility] ([facility]) [address] [facility] [address], [place], [address], 03/30/2021 08:21:45 03/29/2003/30/2021 COMP. METAB OLIC PANEL (14) ALT (SGPT) 71 IU/L 0-32 above high normal Not Available [facility] ([facility]) [address] [place], [address], 03/30/2021 08:21:45 03/29/2003/30/2021 CBC, NO DIFFE RENTI AL/PL ATELE T WBC 11.3 x10e3 /uL 3.4-10 .8 above high normal Not Available [facility] ([facility]) [address] [facility], [place], [address], 03/30/2021 08:21:46 03/29/2003/30/2021 CBC, NO DIFFE RENTI AL/PL ATELE T RBC 4.97 x10e6 /uL 3.77-5 .28 Not Available [facility] ([facility]) [address] [place], [address], 03/30/2021 08:21:46 03/29/2003/30/2021 CBC, NO DIFFE RENTI AL/PL ATELE T hemoglobin 14.5 g/dL 11.1-1 5.9 Not Available [facility] ([facility]) [address] [place], [address], 03/30/2021 08:21:46 03/29/2003/30/2021 CBC, NO DIFFE RENTI AL/PL ATELE T hematocrit 43.6 % 34.0-4 6.6 Not Available [facility] ([facility]) [address] [place], [address], 03/30/2021 08:21:46 03/29/2003/30/2021 CBC, NO DIFFE RENTI AL/PL ATELE T MCV 88 fL 79-97 Not Available [facility] ([facility]) [address] [place], [address], 03/30/2021 08:21:46 03/29/2003/30/2021 CBC, NO DIFFE RENTI AL/PL ATELE T MCH 29.2 pg 26.6-3 3.0 Not Available [facility] ([facility]) [address] [place], [address], 03/30/2021 08:21:46 03/29/2003/30/2021 CBC, NO DIFFE RENTI AL/PL ATELE T MCHC 33.3 g/dL 31.5-3 5.7 Not Available [facility] ([facility]) [address] [place], [address], 03/30/2021 08:21:46 03/29/2003/30/2021 CBC, NO DIFFE RENTI AL/PL ATELE T RDW 12.2 % 11.7-1 5.4 Not Available [facility] ([facility]) [address] [place], [address], 03/30/2021 08:21:46 03/29/2003/30/2021 CBC, NO DIFFE RENTI AL/PL ATELE T NRBC TRACER 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 Not Available [facility] ([facility]) [address] [place], [address], 03/30/2021 08:21:46 03/29/20 21 03/30/2021 LIPID PANEL cholesterol, total 198 mg/dL 100-19 9 Not Available [facility] ([facility]) [address] [place], [address], 03/30/2021 08:21:47 03/29/2003/30/2021 LIPID PANEL triglyceride s 188 mg/dL 0-149 above high normal Not Available [facility] ([facility]) [address] [place], [address], 03/30/2021 08:21:47 03/29/20 21 03/30/2021 LIPID PANEL HDL cholesterol 34 mg/dL >39 below low normal Not Available [facility] ([facility]) [address] [place], [address], 03/30/2021 08:21:47 03/29/2003/30/2021 LIPID PANEL VLDL cholesterol stan 34 mg/dL 5-40 Not Available [facility] ([facility]) [address] [place], [address], 03/30/2021 08:21:47 03/29/2003/30/2021 LIPID PANEL LDL chol calc (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 6 above high normal Predi abete s: 5.7 - 6.4 Diabe linda: >6.4 Glyce sandy contr ol for adult s with diabe linda: <7.0 Not Available [facility] ([facility]) [address] [place], [address], 03/30/2021 08:21:48 03/29/2003/30/2021 VITAM IN D, 25-HY DROXY vitamin D, 25-hydroxy 18.3 NG/mL 30.0-1 00.0 below low normal Vitam in D defic iency has been defin ed by the Insti tute of Medic ine and an Endoc rine Socie ty pract ice guide line as a level of serum 25-OH vitam in D less than 20 ng/mL (1,2) . The Endoc rine Socie ty went on to [facility] defin e vitam in D insuf ficie ncy as a level betwe en 21 and 29 ng/mL (2). 1. IOM (Inst itute of Medic ine). 2010. Dieta ry refer ence intak es for calci um and D. Hiral german [place]: [facility] . 2. Karthik tian MF, Jim maynard [place], Matthew off-F mireille i FOWLER, et al. Evalu ation , treat ment, and preve ntion of vitam in D defic iency : an Endoc rine Socie ty clini stan pract ice guide line. JCEM. 2010; 96(7) :1911 -30. Not Available [facility] ([facility]) [address] [facility], [place], [address], 03/30/2021 08:21:50 03/29/2003/30/2021 TSH RFX ON ABNOR MAL TO FREE T4 TSH 3.770 uIU/m L 0.450- 4.500 Not Available [facility] ([facility]) [address] [facility], [place], [address], 03/30/2021 08:21:51 Result Notes None recorded. Problems No Known Problems Procedures Surgical History Date Name Laterality Status Provider Name and Address Organization Details Recorded Time 06/18/19 16 Dilation and curettage completed Asiya Wilson MA [facility] 07/07/2020 10:25:45 06/18/18 95 falloposcopy completed Asiya Wilson MA [facility] 07/07/2020 10:26:58 Imaging Results None recorded. Procedure Notes None recorded. Medical Equipment None Reported. Allergies No known drug allergies Medications Name Sig Start Date Stop Date Status Note LastModified by Organization Details LastModified Time Prescripti on - New 07/07 completed Not Available Not Available Not Available amoxicilli n 500 mg capsule 07/07 completed Not Available Not Available Not Available Zithromax 1 gram oral packet Take 1 packet by oral route as directed for 1 day. 07/07 completed Not Available Not Available Not Available azithromyc in 250 mg tablet 07/07 completed Not Available Not Available Not Available phenazopyr idine 200 mg tablet 07/07 completed Not Available Not Available Not Available clindamyci n HCl 150 mg capsule 07/07 completed Not Available Not Available Not Available penicillin V potassium 500 mg tablet 03/29 completed Not Available Not Available Not Available acetaminop hen 300 mg-codeine 30 mg tablet 07/07 completed Not Available Not Available Not Available ciprofloxa alexandra 500 mg tablet 07/07 completed Not Available Not Available Not Available oxycodone- acetaminop hen 5 mg-325 mg tablet 03/29 completed Not Available Not Available Not Available ibuprofen 600 mg tablet active 07/07/20 Per pt she does OTC 600 mg as needed DG RMA Not Available Not Available Not Available Sprintec (28) 0.25 mg-35 mcg tablet 07/07 completed Not Available Not Available Not Available chlorhexid ine gluconate 0.12 % mouthwash 07/07 completed Not Available Not Available Not Available ProAir HFA 90 mcg/actuat ion aerosol inhaler 07/07 completed Not Available Not Available Not Available 28 mg iron-800 mcg tablet Take 1 tablet every day by oral route with meals. 03/29 completed Not Available Not Available Not Available Vitals Date Recorded Body height Body mass index (BMI) Body weight Provider Name and Address Organization Details Last Updated DateTime 07/07/2020 170.18 cm 43.9 kg/m2 169719.86 g Asiya Wilson MA [place] - [facility] 07/07/2020 10:15:29 Date Recorded Body height Body mass index (BMI) Body weight Oxygen saturation Oxygen saturation in Arterial blood by Pulse oximetry Heart rate Respiratory rate Body temperature Systolic blood pressure Diastolic blood pressure Provider Name and Address Organization Details Last Updated DateTime 170.18 cm 40.8 kg/m2 558234. 12 g 98 % 98 % 94 /min 16 /min 98.1 [degF] 126 mm[Hg] 84 mm[Hg] Autumn Corado [place] [facility] 09:57:01 Date Recorded Body height Body mass index (BMI) Body weight Systolic blood pressure Diastolic blood pressure Provider Name and Address Organization Details Last Updated DateTime 05/11/2014 170.18 cm 32.3 kg/m2 60921.02 822 g 104 mm[Hg] 62 mm[Hg] Catie Hoang [place] [facility] 4 15:38:03 Date Recorded Body height Body mass index (BMI) Body weight Systolic blood pressure Diastolic blood pressure Provider Name and Address Organization Details Last Updated DateTime 08/12/2014 170.18 cm 33.4 kg/m2 69716.17 481 g 122 mm[Hg] 84 mm[Hg] Catie Hoang MA [place] [facility] 5 16:09:15 Social History Question Answer Notes LastModified by Organizat ion Details LastModified Time Tobacco Smoking Status Current Every Day Smoker Catie Hoang MA null, [place] - [facility] 05/11/2014 15:48:47 Do You Have An Advance Directive? No Information not available 05/11/2014 What Is Your Level Of Alcohol Consumption? Occasional Information not available 03/29/2021 Are You Blind Or Do You Have Difficulty Seeing? No Information not available 03/29/2021 Is Blood Transfusion Acceptable In An Emergency? Yes Information not available 05/11/2014 What Is Your Level Of Caffeine Consumption? Moderate Information not available 03/29/2021 How Much Tobacco Do You Chew? None Information not available 05/11/2014 In The 14 Days Before Symptom Onset, Have You Had Close Contact With A Laboratory-confir med COVID-19 While That Case Was Ill? No Information not available 03/29/2021 In The 14 Days Before Symptom Onset, Have You Had Close Contact With A Person Who Is Under Investigation For COVID-19 While That Person Was Ill? No Information not available 03/29/2021 Have You Been To An Area Known To Be High Risk For COVID-19? No Information not available 03/29/2021 Are You Currently Employed? Yes Information not available 07/07/2020 Are You Deaf Or Do You Have Serious Difficulty Hearing? No Information not available 03/29/2021 What Type Of Diet Are You Following? REGULAR Information not available 05/11/2014 Which Illicit Or Recreational Drugs Have You Used? None Information not available 05/11/2014 Do You Or Have You Ever Used E-cigarettes Or Vape? Never Used Electronic Cigarettes Information not available 07/07/2020 Education 12 Information no t available 05/11/2014 What Is Your Occupation? [employer] Information not available 03/29/2021 Are There Any Guns Present In Your Home? No Information not available 03/29/2021 Live Alone Or With Others? With Others Information not available 05/11/2014 What Was The Date Of Your Most Recent Tobacco Screening? 03/29/2021 Information not available 03/29/2021 How Many Children Do You Have? 0 Information not available 05/11/2014 Performs Monthly Self-breast Exam? Yes Information no t available 07/07/2020 Do You Use Protection During Sex? No Information not available 07/07/2020 What Is Your Relationship Status? Single Fiance Information not available 07/07/2020 Do You Use Your Seat Belt Or Car Seat Routinely? Yes Information not available 03/29/2021 Seat Belts Used Routinely Yes Information not available 05/11/2014 Are You Sexually Active? Yes Information not available 05/11/2014 Do You Have Smoke And Carbon Monoxide Detectors In Your Home? Yes Information not available 03/29/2021 At What Age Did You Start Smoking Tobacco? 16 Information not available 03/29/2021 Are You Passively Exposed To Smoke? No Information no t available 03/29/2021 How Much Tobacco Do You Smoke? 0.25 PPD Information not available 05/11/2014 General Stress Level Low Information not available 07/07/2020 Do You Feel Stressed (tense, Restless, Nervous, Or Anxious, Or Unable To Sleep At Night)? LE0880-4 Information not available 03/29/2021 Do You Use Any Illicit Or Recreational Drugs? Yes Information not available 03/29/2021 Do You Use Sunscreen Routinely? No Information not available 05/11/2014 On What Date Was Tobacco Cessation Counseling Provided? 07/07/2020 Information not available 07/07/2020 How Many Years Have You Smoked Tobacco? 10 Information not available 03/29/2021 Sex: Unknown Functional Status Question Answer Note LastModified by Organizat ion Details LastModified Time Are you able to care for yourself? Yes Information not available 03/29/2021 What is your exercise level? Occasional Information not available 05/11/2014 Mental Status None recorded. Family History Relationship Description Onset Age of this Age Resolved Age Notes LastModified by Organization Details LastModified Time Maternal Grandfather Diabetes mellitus [email or web address] Not available 2020 10:28:26 Father Diabetes mellitus [email or web address] Not available 2020 10:28:26 Mother Cerebrovascu lar accident Mother had 2 stroke s. [email or web address] Not available 07/07/2020 10:30:03 Medical History Condition Response High Blood Pressure Y Atrial Fibrillation N Thyroid Problems N Kidney or Bladder Problems Y Blood Clots N Depression Y Anemia N Heart Attack ([place]) N Diabetes N Anxiety Disorder N Seizures/Epilepsy N Acid Reflux (GERD) Y Cancer N Stroke N Asthma N Allergies N ADHD N High Cholesterol N Hepatitis N Liver Disease N Heart Failure N Gynecological History Statement/Question Response Abnormal Pap N Flow Moderate Date of LMP 02/27/2021 On BCP's at Conception? N STIs/STDs Y HPV Vaccine N Duration of Flow (days) 3 Age at Menarche 13 Current Control Method None Sexually Active? Y Menses Monthly N Date of Last Pap Smear Sexual Problems? N LMP Approximate Desired Control Method Seeking Pre gnancy Obstetrics History GPAL:G 1 P 0 0 1 0 Type Value Spontaneous 1 Living 0 Total 1 Immunizations Vaccine Type Date Status Note Provider Nam e and Address Organization Details Recorded Time Influenza, split virus, quadrivalent, preservative completed Autumn Corado MA [place], [place] - [facility] 03/29/2021 10:40:33 Past Encounters Encounter ID Performer Location Encounter Start Date Encounter Closed Date Diagnosis/Indication Diagnosis SNOMED-CT Code Diagnosis ICD10 Code Diagnosis Note [id number] ALONZO Hackett (CAN REFORMING MACHINE OPERATOR) [address] [place] [address] 05/11/2014 14:50:42 05/11/2014 16:24:28 Gynecologic examination [id number] ALONZO Hackett (CAN REFORMING MACHINE OPERATOR) [address] [place] [address] 08/12/2014 15:51:11 08/12/2014 16:46:40 At increased risk of sexually transmitted infection [id number] COURTNEY ROUSE (CAN REFORMING MACHINE OPERATOR) [address] [place] [address] 07/07/2020 08:57:08 07/09/2020 10:57:47 Reproductive care management 392705168 Z31.9 25yo F presents via phone for fertility discussion . Patient has been trying to get for the past 6 months. She is tracking her temperatur e and timing her ovulation. Periods regular until last Feb, amenorrhei c Feb-Jun. LMP 06/26/20. H/o chlamydia. F/u labs and HSG. Pt defers semen analysis at this time. Start . Continuing tracking cycle and start OPK. RTC in 1 month for pap. 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 Administra tion of influenza vaccine 98712247 Z23 Obesity 922656203 E66.9 advised low fat, low cholestero l diet, regular exercise and weight reduction. Family his tory of premature coronary heart disease 719750819 Z82.49 father passed in 40's, hx of [place] and pacemaker, Tobacco user 818584620 Z 72.0 Smoking cessation encouraged . Gastroesop hageal reflux disease without esophagitis 922725234 K21.9 infrequent ; diet advised Health Concerns Section Related Observation LastModified by Organization Detai ls LastModified Time None Recorded Concern Status LastModified by Organization Details LastModified Time None Recorded Advance Directives Directive N: Payers Encounter Date Sequence Insurance Name Policy Number Policy Dyson Covered Member ID Dyson Member ID Guarantor Name 05/11/2014 1 [facility] (MEDICAID HMO) [id number] [facility] [id number] [facility] 08/12/2014 1 [facility] (MEDICAID HMO) [id number] Dodie Rashid [id number] [facility] 07/07/2020 1 [facility] (MEDICAID HMO) [id number] Dodie Rashid [id number] [facility] 03/29/2021 1 [facility] (MEDICAID HMO) [id number] [facility] [id number] [facility] Notes Date Note Type Note Provider Name and Address Organization Details Recorded Time 07/07/2020 text/html This is a 25 yea r old female with a history of chlamydia and miscarriage presents for fertility discussion. She reports h/o D&C in 2016 and possible miscarriage 3 years ago. She states 3 years ago she was on drugs, fell on her stomach and she started having significant bleeding but never sought out medical attention. She states her periods were regular until February of 2020. She went from February 2020 to June 2020 without a period. She states she has been trying to get for the past 6 months. She admits to keeping track of her temperature and timing her ovulation. She does not remember the last time she had an CAN REFORMING MACHINE OPERATOR or doctor visit. Partner does not have any children. She denies abnormal discharge, pelvic pain, vaginal symptoms, fevers, chills, n/v, urinary symptoms, changes in BMs. COURTNEY ROUSE Attn: [address] [place], [address], [place] [facility] 07/08/2020 13:26:58 03/29/2021 text/html Here to est care , has not had a pcp in a very long time,trying to conceive but irreg. periods, using juan to track, last year went 6 mos with out onehx of two miscarriages, Xiao Kaminski APN, SUPERINTENDENT TERMINAL-C Attn: [address] [place], [address], [place] [facility] 03/29/2021 14:05:50 OBGyn Episode Ob Episode Information Episode Created Date Number of Fetuses Patient Bloodtype Patient rh Status Prepregnancy Weight lbs Domestic Partner Domestic Partner Phone Father Name Civil Cad Tech Status 07/07/19 21 1 CLOSED Fetus Data First Name Last Name Admitted to NICU Weight (g) Sex Living Outcome Pediatric Complications Fetus ID Race Codes Race Delivery Type , Spontane ous [id number] Josh Calculation Initial Josh Date Initial Exam Date Initial Exam Provider Initial Ultrasound Date Last Menstrual Period Date Ultra Sound Weeks Gestation 0 Eighteen To Twenty Week Josh Update Ultra Sound Date Fundal Height At Umbil Quickening Date Ultra Sound Latest Weeks Gestation Final Josh Confirmed By Final Josh Confirmed Date Final Josh Date Ultra Sound Latest Days Gestation 0 0 Menstrual History Last Menstrual Date Menses Monthly On Bcp Conception Prior Menses Frequency Hcg Plus Date Menarche Onset Age Delivery Information Delivery Date Delivery Type Labor Anesthesia Weeks Gestation Incision Type Labor Labor Length Hrs Delivered By Post Complications Tubal Sterilization Discharge Date Comments 7 Pt think s miscarria ge, did not seek medical attention at all Discharge Information Feeding Method Contraceptive Method Maternal HG B and HCT Levels Ob Episode Information Episode Created Date Number of Fetuses Patient Bloodtype Patient rh Status Prepregnancy Weight lbs Domestic Partner Domestic Partner Phone Father Name Civil Cad Tech Status 07/07/19 21 1 CLOSED Fetus Data First Name Last Name Admitted to NICU Weight (g) Sex Living Outcome Pediatric Complications Fetus ID Race Codes Race Delivery Type , Spontane ous [id number] Josh Calculation Initial Josh Date Initial Exam Date Initial Exam Provider Initial Ultrasound Date Last Menstrual Period Date Ultra Sound Weeks Gestation 0 Eighteen To Twenty Week Josh Update Ultra Sound Date Fundal Height At Umbil Quickening Date Ultra Sound Latest Weeks Gestation Final Josh Confirmed By Final Josh Confirmed Date Final Josh Date Ultra Sound Latest Days Gestation 0 0 Menstrual History Last Menstrual Date Menses Monthly On Bcp Conception Prior Menses Frequency Hcg Plus Date Menarche Onset Age Delivery Information Delivery Date Delivery Type Labor Anesthesia Weeks Gestation Incision Type Labor Labor Length Hrs Delivered By Post Complications Tubal Sterilization Discharge Date Comments 6 Discharge Information Feeding Method Contraceptive Method Maternal HG B and HCT Levels
[2024-08-21 14:57] LABS: Add Urine Microscopic? YES; Appearance Urine Cloudy (Clear); Bacteria Urine Rare /hpf; Bilirubin Urine Negative (Negative); Blood Urine Negative (Negative); Color Urine Yellow (Yellow); Glucose Urine UA Negative (Negative); Ketones Urine Negative (Negative); Leukocyte Esterase Ur Negative LEU/UL (Negative); Nitrate Urine Negative (Negative); Non Pathogenic Casts 0-2; Protein Urine Negative (Negative); RBC Urine 0-2 /hpf (0-2); Specific Grav Ur 1.013 (1.001-1.035); Squamous Epithelial Cell Urine Few /hpf (Few); Urobilinogen Urine 0.2 mg/dL (<2.0); WBC Urine 0-5 /hpf (0-3); pH Urine 7.5 (5.0-9.0)
[2024-08-21 15:26] LABS: Influenza A QL RT-PCR Negative (Negative); Influenza B QL RT-PCR Negative (Negative); RSV RNA, RT-PCR Negative (Negative); SARS-CoV-2 RNA PCR Negative (Negative)
--- OUTSIDE RECORDS SUMMARY | 2024-08-21 16:47 | XMS_ITS | CONTINUITY OF CARE DOCUMENT ---
Author Name mery ordonez Address Unknown Organization [facility] Address [address] [place] [address] Phone [phone] Care Team Providers Care Senior Architect Name Role Phone Adi Lopez MD Unavailable Adi Lopez MD Unavailable INSURANCE PROVIDERS Payer name Policy type / Coverage type [place] red alliance party ID [place] MEDICAID Medicaid [id number]
== END 2024-08-21 16:11 | disposition left against medical advice (07) ==
LOC: ANHED 15:46
PROVIDERS: Emergency Provider Emergency Medicine
DX: R51.9 Headache, unspecified (principal); Z20.822 Contact with and (suspected) exposure to COVID-19
CPT/HCPCS: 81001; 87637; 99199

== ENCOUNTER 2024-09-03 17:51 | Emergency (ER) | payer OTHER, SELFPAY ==
--- OUTSIDE RECORDS SUMMARY | 2024-09-03 17:54 | XMS_ITS ---
Author Organization [facility] Address [address] [place] [address] Care Team Providers Care Harpsichord Maker Name Role Phone Lo Castro Primary Care Provider [phone] Allergies No Known Allergies REASON FOR VISIT [...] Active Encounters Encounter Location Date Provider Diagnosis [facility] [address] [place] [address] 04/15/2024 Lo Castro Major depression F32 .9 [...] May also contact the 24-hour crisis hotline ([facility]), refer to the closest emergency [...] Notes * Dodie GILBERTDOB:[birth year] (29 yo F)Acc No.[id number]:04/15/2024 Patient: Dodie LARSON Provider: Delon Castro, MSN, MAKEUP INSTRUCTOR, STEAM SHOVEL OPERATOR-C :1995 A ge:29 Y S ex:Female Date:04/15/2024 Address:[address] [place] [address] Subjective: * Chief Complaints: * P B [...] I nterpretation M inimal Depression. S creening: Breaks Suicide Severity Rating Scale (LF) D o [...] she is going to be working at [employer]. Startes on 04/30. Medications: Reports taking MH [...] Diagno stic Procedure: [facility]- [place] 2021- [place] 2022 * Family History: F ather: . 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 * Medications: T akingWellbutrin XL 300 MG [...] May also contact the 24-hour crisis hotline ([facility]), refer to the closest emergency [...] Completed true * Provider: Delon Castro, MSN, MAKEUP INSTRUCTOR, STEAM SHOVEL OPERATOR-C Date: Generated for [employer]iny crews/Dank/eTransmitting on: 0 09/03/2024 05:54 PM CDT History and Physical Notes * HPI (History [...] she is going to be working at [employer]. Startes on 04/30. Medications: Reports taking MH [...] positive, not hurting myself. Denies SI/HI. Screening Breaks Suicide Severity Rating Scale (LF) Do you [...] CONCENTRATION No deficits ATTITUDE AND BEHAVIOR Cooperative, Velvet Weaver tive MEMORY Immediate, Recent, R emote MOOD [...]
--- OUTSIDE RECORDS SUMMARY | 2024-09-03 17:54 | XMS_ITS | CONTINUITY OF CARE DOCUMENT ---
Author Name mery ordonez Address Unknown Organization [facility] [address] [address] Address [address] [place] [address] Phone [phone] Care Team Providers Care Process Supervisor Name Role Phone Adi Lopez MD Unavailable Adi Lopez MD Unavailable [phone] INSURANCE PROVIDERS Payer name Policy type / Coverage type [place] red constitution party ID [place] MEDICAID Medicaid [id number]
--- OUTSIDE RECORDS SUMMARY | 2024-09-03 17:54 | XMS_ITS | Data Portability ---
Author Organization [facility] [place] [facility] Address [address] [place] [address] Care Team Providers Care Egg Processing Supervisor Name Role Phone LORETO RENDON Pcu Rn [phone] Assessment Encounter Date Assessment Date Assessment LastModified by Organization Details LastModified Time 07/07/2020 07/07/2020 Natanael Dickson PA-S Not available 07/07/2020 15:38:27 Plan of Treatment Reminders Order Date Submit Date Provider Last Modified By Organization Details Last Modified Time Details Appointments None recorded. Lab vitamin D, 25-hydroxy , total, serum 2020 [facility], [address] [facility] [place] [facility], [facility] [[email or web address] [address], [place], [address], 08:21:50 HbA1c (hemoglobi n A1c), blood 2020 [facility], [address] [facility] [place] [facility], [facility] [[email or web address] [address], [place], [address], 08:21:49 TSH, ultra-sens itive, serum 2020 [facility], [address], [place], [address], 08:21:51 CMP, serum or plasma 2020 [facility], [address], [place], [address], 08:21:45 lipid panel, serum 2020 [facility], [address], [address], [place], [address], 08:21:47 CBC 2020 [facility], [address], [place], [address], 08:21:46 mthfr (methylene tetrahydro folate reductase) mutation, blood/tiss ue 2020 021 [facility], Shaylee Hansen, [address], [place], [address], 09:57:07 CBC w/ auto diff 2020 021 [facility], Shaylee Hansen, [address], [place], [address], 13:30:18 CMP, serum or plasma 2020 021 [facility], Shaylee Hansen, [address], [place], [address], 13:30:19 lh + FSH, serum 2020 021 [facility], Shaylee Hansen, [address], [place], [address], 13:30:20 estradiol, serum 2020 021 [facility], Shaylee Hansen, [address], [place], [address], 13:30:20 TSH, ultra-sens itive, serum 2020 021 [facility], [address]ay[address], [address], [place], [address], 1 13:30:19 HbA1c (hemoglobi n A1c), blood 2020 021 [facility], [address] [facility], [address], [place], [address], 1 13:30:19 testostero ne, total, serum 2020 021 [facility], [address] [facility] [address], [address], [place], [address], 1 13:30:20 dhea-sulfa te, serum 2020 021 [facility], [address] [place] [address], [address], [place], [address], 1 13:30:19 CT + NG + TV, DNA, urine/swab 2020 021 [facility], [address] [facility], [address], [place], [address], 1 13:30:21 bacterial vaginosis + vaginitis panel, vaginal 2014 [facility] [address], [place], [address], 5 10:34:30 HSV (1+2) DNA, qual, PCR, unspecifie d specimen 2014 015 [facility], [address], [place], [address], 5 10:34:30 test, urine 2014 015 [email or web address] In-Office Order, Internal Use Only DO Not Attach Compendium DO Not Attach Compendium, Do Not Delete/merge, [id number] 5 12:15:52 urinalysis , dipstick 2014 015 [email or web address] In-Office Order, Internal Use Only DO Not Attach Compendium DO Not Attach Compendium, Do Not Delete/merge, [id number] 5 12:15:52 test, urine 2013 014 [email or web address] In-Office Order, Internal Use Only DO Not Attach Compendium DO Not Attach Compendium, Do Not Delete/merge, [id number] 5 13:46:12 urinalysis , dipstick 2013 014 [email or web address] In-Office Order, Internal Use Only DO Not Attach Compendium DO Not Attach Compendium, Do Not Delete/merge, [id number] 5 13:46:12 Referral None recorded. Procedures None recorded. Surgeries None recorded. Imaging XR, hysterosal pingogram 2020 021 [facility] [address] [place], [address], 15:07:05 Medication Orders 28 mg iron-800 mcg tablet 2020 021 [id number], [address] [facility], [place], [place], [id number], 09:57:45 Patient TargetsNo targets recorded. Patient Instructions Encounter Date Encounter Id Patient Instructions Last Modified By Organization Details Last Modified Time 07/07/2020 [id number] Quitting Tobacco : Care Instructions Not available 07/08/2020 09:57:15 03/29/2021 [id number] influenza (flu) vaccine: care instructions Not available [...] DO Not Attach Compendium, Do Not Delete/merge, [id number] 08/12/2014 16:55:49 08/12/1908/12/2014 urina lysis , dipst [...] 08/12/2014 urina lysis , dipst ick Specific [place] 1.025 Not Available In-Off ice Order Internal [...] DO Not Attach Compendium, Do Not Delete/merge, [id number] 08/12/2014 16:55:49 05/11/20 14 05/11/2014 urina lysis , dipst ick Leukocytes Negati ve Not Available In-Office Order Internal Use Only DO Not Attach Compendium DO Not Attach Compendium, Do Not Delete/merge, [id number] 05/11/2014 15:49:56 05/11/20 14 05/11/2014 urina lysis , dipst ick Nitrite negati ve Not Available In-Office Order Internal Use Only DO Not Attach Compendium DO Not Attach Compendium, Do Not Delete/merge, [id number] 05/11/2014 15:49:56 05/11/20 14 05/11/2014 urina lysis [...] 05/11/2014 urina lysis , dipst ick Specific [place] 1.025 Not Available In-Off ice Order Internal Use Only DO Not Attach Compendium DO Not Attach Compendium, Do Not Delete/merge, 05/11/2014 15:49:56 05/11/20 14 05/11/2014 urina lysis , dipst ick Ketone Negati ve Not Available In-Office Order Internal Use Only DO Not Attach Compendium DO Not Attach Compendium, Do Not Delete/merge, [id number] 05/11/2014 15:49:56 05/11/20 14 05/11/2014 urina lysis , dipst ick Bilirubin Negati ve Not Available In-Office Order Internal Use Only DO Not Attach Compendium DO Not Attach Compendium, Do Not Delete/merge, [id number] 05/11/2014 15:49:56 05/11/20 14 05/11/2014 urina lysis , dipst ick Glucose Negati ve Not Available In-Office Order Internal Use Only DO Not Attach Compendium DO Not Attach Compendium, Do Not Delete/merge, [id number] 05/11/2014 15:49:56 05/11/20 14 05/11/2014 urina lysis , dipst ick Appearance Slight ly Cloudy Not Available In-Office Order Internal Use Only DO Not Attach Compendium DO Not Attach Compendium, Do Not Delete/merge, [id number] 05/11/2014 15:49:56 05/11/20 14 05/11/2014 urina lysis , dipst ick Color Yellow Not Available In-Office Order Internal Use Only DO Not Attach Compendium DO Not Attach Compendium, Do Not Delete/merge, [id number] 05/11/2014 15:49:56 05/11/20 14 05/11/2014 pregn gustavo test, urine HCG negati ve Not Available In-Office Order Internal Use Only DO Not Attach Compendium DO Not Attach Compendium, Do Not Delete/merge, [id number] 05/11/2014 15:49:56 08/12/19 15 08/17/2014 bacte rial vagin osis + vagin itis panel , vagin al atopobium vaginae LOW - 0 score Not Available [facility] ([facility]) [address] [facility], [place], [address], 08/18/2014 14:35:15 08/12/19 15 08/17/2014 bacte rial vagin osis + vagin itis panel , vagin al bvab 2 LOW - 0 score Not Available [facility] ([facility]) [address] [facility], [place], [address], 08/18/2014 14:35:15 08/12/19 15 08/17/2014 bacte rial [...] E CRISTIN CTERI STICS DETER MINED BY [employer]. IT HAS NOT BEEN CLEAR ED OR APPRO FLORA BY THE FOOD AND DRUG ADMIN ISTRA TION. THE FDA HAS DETER MINED THAT SUCH CLEAR ANCE OR APPRO NYDIA IS NOT NECES CHARLEEN. Not Available [facility] ([facility]) [address] [place], [address], 08/18/2014 14:35:15 08/12/19 15 08/17/2014 bacte rial vagin osis + vagin itis panel , vagin al jasmina albicans, JOHN NEGATI VE negati ve Not Available [facility] ([facility]) [address] [place], [address], 08/18/2014 14:35:15 08/12/19 15 08/17/2014 bacte rial vagin osis + vagin itis panel , vagin al jasmina glabrata, JOHN NEGATI VE negati ve THIS TEST WAS DEVEL OPED AND ITS PERFO RMANC E CRISTIN CTERI STICS DETER MINED BY [facility]. IT HAS NOT BEEN CLEAR ED OR APPRO FLORA BY THE FOOD AND DRUG ADMIN ISTRA TION. THE FDA HAS DETER MINED THAT SUCH CLEAR ANCE OR APPRO NYDIA IS NOT NECES CHARLEEN. Not Available [facility] ([facility]) [address] [place], [address], 08/18/2014 14:35:15 08/12/19 15 08/18/2014 bacte rial vagin osis + vagin itis panel , vagin al trich vag by JOHN NEGATI VE negati ve Not Available [facility] ([facility]) [address] [place], [address], 08/18/2014 14:35:15 08/12/19 15 08/18/2014 bacte rial vagin osis + vagin itis panel , vagin al chlamydia trachomatis, JOHN NEGATI VE negati ve Not Available [facility] ([facility]) [address] [place], [address], 08/18/2014 14:35:15 08/12/19 15 08/18/2014 bacte rial vagin osis + vagin itis panel , vagin al neisseria gonorrhoeae, JOHN NEGATI VE negati ve Not Available [facility] ([facility]) [address] [place], [address], 08/18/2014 14:35:15 08/12/19 15 08/15/2014 HSV (1+2) DNA, qual, PCR, unspe cifie d speci men hsv 1 JOHN NEGATI VE negati ve Not Available [facility] ([facility]) [address] [place], [address], 08/18/2014 14:35:16 08/12/19 15 08/15/2014 HSV (1+2) DNA, qual, PCR, unspe cifie d speci men hsv 2 JOHN NEGATI VE negati ve Not Available [facility] ([facility]) [address] [place], [address], 08/18/2014 14:35:16 03/29/20 21 03/30/2021 COMP. METAB OLIC PANEL (14) glucose 85 mg/dL 65-99 Not Available [facility] ([facility]) [address] [facility] [place], [address], 03/30/2021 08:21:45 03/29/2003/30/2021 COMP. METAB OLIC PANEL (14) BUN 8 mg/dL 6-20 Not Available [facility] ([facility]) [address] [facility], [place], [address], 03/30/2021 08:21:45 03/29/2003/30/2021 COMP. METAB OLIC PANEL (14) creatinine 0.57 mg/dL 0.57-1 .00 Not Available [facility] ([facility]) [address] [facility], [place], [address], 03/30/2021 08:21:45 03/29/2003/30/2021 COMP. METAB OLIC PANEL (14) eGFR if nonafricn AM 127 mL/mi n/1.7 3 >59 Not Available [facility] ([facility]) [address] [facility], [place], [address], 03/30/2021 08:21:45 03/29/2003/30/2021 COMP. METAB OLIC PANEL [...] SN Task force . Not Available [facility] ([facility]) [address] [facility], [place], [address], 03/30/2021 08:21:45 03/29/2003/30/2021 COMP. METAB OLIC PANEL (14) BUN/creatini ne ratio 14 9-23 Not Available [facility] ([facility]) [address] [facility], [place], [address], 03/30/2021 08:21:45 03/29/20 21 03/30/2021 COMP. METAB OLIC PANEL (14) sodium 139 mmol/ L 134-14 4 Not Available [facility] ([facility]) [address] [place], [address], 03/30/2021 08:21:45 03/29/20 21 03/30/2021 COMP. METAB OLIC PANEL (14) potassium 4.4 mmol/ L 3.5-5. 2 Not Available [facility] ([facility]) [address] [place], [address], 03/30/2021 08:21:45 03/29/2003/30/2021 COMP. METAB OLIC PANEL (14) chloride 103 mmol/ L 96-106 Not Available [facility] ([facility]) [address] [facility], [place], [address], 03/30/2021 08:21:45 03/29/20 21 03/30/2021 COMP. METAB OLIC PANEL (14) carbon dioxide, total 22 mmol/ L 20-29 Not Available [facility] ([facility]) [address] [place], [address], 03/30/2021 08:21:45 03/29/20 21 03/30/2021 COMP. METAB OLIC PANEL (14) calcium 9.6 mg/dL 8.7-10 .2 Not Available [facility] ([facility]) [address] [place], [address], 03/30/2021 08:21:45 03/29/20 21 03/30/2021 COMP. METAB OLIC PANEL (14) protein, total 7.2 g/dL 6.0-8. 5 Not Available [facility] ([facility]) [address] [place], [address], 03/30/2021 08:21:45 03/29/20 21 03/30/2021 COMP. METAB OLIC PANEL (14) albumin 4.5 g/dL 3.9-5. 0 Not Available [facility] ([facility]) [address] [facility], [place], [address], 03/30/2021 08:21:45 03/29/20 21 03/30/2021 COMP. METAB OLIC PANEL (14) globulin, total 2.7 g/dL 1.5-4. 5 Not Available [facility] ([facility]) [address] [facility], [place], [address], 03/30/2021 08:21:45 03/29/2003/30/2021 COMP. METAB OLIC PANEL (14) A/G ratio 1.7 1.2-2. 2 Not Available [facility] ([facility]) [address] [facility], [place], [address], 03/30/2021 08:21:45 03/29/2003/30/2021 COMP. METAB OLIC PANEL (14) bilirubin, total 0.3 mg/dL 0.0-1. 2 Not Available [facility] ([facility]) [address] [facility], [place], [address], 03/30/2021 08:21:45 03/29/2003/30/2021 COMP. METAB OLIC PANEL (14) alkaline phosphatase 147 IU/L 44-121 above high normal Ple ase note refer ence inter nydia vasquez e Not Available [facility] ([facility]) [address] [facility], [place], [address], 03/30/2021 08:21:45 03/29/2003/30/2021 COMP. METAB OLIC PANEL (14) AST (SGOT) 40 IU/L 0-40 Not Available [facility] ([facility]) [address] [facility], [place], [address], 03/30/2021 08:21:45 03/29/2003/30/2021 COMP. METAB OLIC PANEL (14) ALT (SGPT) 71 IU/L 0-32 above high normal Not Available [facility] ([facility]) [address] [place], [address], 03/30/2021 08:21:45 03/29/2003/30/2021 CBC, NO DIFFE RENTI AL/PL ATELE T WBC 11.3 x10e3 /uL 3.4-10 .8 above high normal Not Available [facility] ([facility]) [address] [facility], [place], [address], 03/30/2021 08:21:46 03/29/2003/30/2021 CBC, NO DIFFE RENTI AL/PL ATELE T RBC 4.97 x10e6 /uL 3.77-5 .28 Not Available [facility] ([facility]) [address] [place], [address], 03/30/2021 08:21:46 03/29/2003/30/2021 CBC, NO DIFFE RENTI AL/PL ATELE T hemoglobin 14.5 g/dL 11.1-1 5.9 Not Available [facility] ([facility]) [address] [place], [address], 03/30/2021 08:21:46 03/29/2003/30/2021 CBC, NO DIFFE RENTI AL/PL ATELE T hematocrit 43.6 % 34.0-4 6.6 Not Available [facility] ([facility]) [address] [place], [address], 03/30/2021 08:21:46 03/29/2003/30/2021 CBC, NO DIFFE RENTI AL/PL ATELE T MCV 88 fL 79-97 Not Available [facility] ([facility]) [address] [place], [address], 03/30/2021 08:21:46 03/29/2003/30/2021 CBC, NO DIFFE RENTI AL/PL ATELE T MCH 29.2 pg 26.6-3 3.0 Not Available [facility] ([facility]) [address] [place], [address], 03/30/2021 08:21:46 03/29/2003/30/2021 CBC, NO DIFFE RENTI AL/PL ATELE T MCHC 33.3 g/dL 31.5-3 5.7 Not Available [facility] ([facility]) [address] [place], [address], 03/30/2021 08:21:46 03/29/2003/30/2021 CBC, NO DIFFE RENTI AL/PL ATELE T RDW 12.2 % 11.7-1 5.4 Not Available [facility] ([facility]) [address] [place], [address], 03/30/2021 08:21:46 03/29/2003/30/2021 CBC, NO DIFFE RENTI AL/PL ATELE T NRBC ZINC PLATER Not Available [facility] ([facility]) [address] [place], [address], 03/30/2021 08:21:46 03/29/20 21 03/30/2021 LIPID PANEL cholesterol, total 198 mg/dL 100-19 9 Not Available [facility] ([facility]) [address] [place], [address], 03/30/2021 08:21:47 03/29/2003/30/2021 LIPID PANEL triglyceride s 188 mg/dL 0-149 above high normal Not Available [facility] ([facility]) [address] [place], [address], 03/30/2021 08:21:47 03/29/20 21 03/30/2021 LIPID PANEL HDL cholesterol 34 mg/dL >39 below low normal Not Available [facility] ([facility]) [address] [place], [address], 03/30/2021 08:21:47 03/29/2003/30/2021 LIPID PANEL VLDL cholesterol stan 34 mg/dL 5-40 Not Available [facility] ([facility]) [address] [place], [address], 03/30/2021 08:21:47 03/29/2003/30/2021 LIPID PANEL LDL chol calc ([facility]) 130 mg/dL 0-99 above high normal Not Available [facility] ([facility]) [address] [place], [address], 03/30/2021 08:21:47 03/29/2003/30/2021 LIPID PANEL comment: ZINC PLATER Not Available [facility] ([facility]) [address] [place], [address], 03/30/2021 08:21:47 03/29/2003/30/2021 HEMOG LOBIN A1C hemoglobin A1C 6.5 % 4.8-5. 6 above high normal Predi abete s: 5.7 - 6.4 Diabe linda: >6.4 Glyce sandy contr ol for adult s with diabe linda: <7.0 Not Available [facility] ([facility]) [address] [place], [address], 03/30/2021 08:21:48 03/29/2003/30/2021 VITAM IN D, 25-HY [...] Endoc rine Socie ty went on to [facility] er defin e vitam in D insuf ficie ncy as a level betwe en 21 and 29 ng/mL (2). 1. IOM (Inst itute of Medic ine). 2010. Dieta ry refer ence intak es for calci um and D. Hiral german [place]: [facility] . 2. Karthik tian MF, Jim maynard [place], Matthew off-F mireille i FOWLER, et al. Evalu ation , treat ment, and preve ntion of vitam in D defic iency : an Endoc rine Socie ty clini stan pract ice guide line. JCEM. 2010; 96(7) :1911 -30. Not Available [facility] ([facility]) [address] [facility], [place], [address], 03/30/2021 08:21:50 03/29/2003/30/2021 TSH RFX ON ABNOR MAL TO FREE T4 TSH 3.770 uIU/m L 0.450- 4.500 Not Available [facility] ([facility]) [address] [facility], [place], [address], 03/30/2021 08:21:51 Result Notes None recorded. Problems No Known Problems Procedures Surgical History Date Name Laterality Status Provider Name and Address Organization Details Recorded Time 06/18/19 16 Dilation and curettage completed Asiya Wilson MA [facility] 07/07/2020 10:25:45 06/18/18 95 falloposcopy completed Asiya Wilson MA [facility] 07/07/2020 10:26:58 Imaging Results None recorded. Procedure [...] Not Available Not Available Sprintec (28) 0.25 mg-0.035 mg tablet 07/07 completed Not Available Not [...] Updated DateTime 07/07/2020 170.18 cm 43.9 kg/m2 370865.86 g Asiya Wilson MA [place] [facility] 07/07/2020 10:15:29 Date Recorded Body height Body mass index (BMI) Body weight Oxygen saturation Oxygen saturation in Arterial blood by Pulse oximetry Heart rate Respiratory rate Body temperature Systolic blood pressure Diastolic blood pressure Provider Name and Address Organization Details Last Updated DateTime 170.18 cm 40.8 kg/m2 798721. 12 g 98 % 98 % 94 /min 16 /min 98.1 [degF] 126 mm[Hg] 84 mm[Hg] Autumn Corado [place] [facility] 09:57:01 Date Recorded Body height Body mass index (BMI) Body weight Systolic blood pressure Diastolic blood pressure Provider Name and Address Organization Details Last Updated DateTime 05/11/2014 170.18 cm 32.3 kg/m2 55560.02 822 g 104 mm[Hg] 62 mm[Hg] Catie Hoang [place] [facility] 4 15:38:03 Date Recorded Body height Body mass index (BMI) Body weight Systolic blood pressure Diastolic blood pressure Provider Name and Address Organization Details Last Updated DateTime 08/12/2014 170.18 cm 33.4 kg/m2 99467.17 481 g 122 mm[Hg] 84 mm[Hg] Catie Hoang MA [place] [facility] 5 16:09:15 Social History Question Answer Notes LastModified by Organizat ion Details LastModified Time Tobacco Smoking Status Current Every Day Smoker Catie Hoang MA null, [place] [facility] 05/11/2014 15:48:47 Do You Have An Advance [...] Anxious, Or Unable To Sleep At Night)? [id number] Information not available 03/29/2021 Do You Use [...] N Depression Y Anemia N Heart Attack (NE) N Diabetes N Anxiety Disorder N Seizures/Epilepsy [...] virus, quadrivalent, preservative completed Autumn Corado MA [facility] 03/29/2021 10:40:33 Past Encounters Encounter ID Performer Location Encounter Start Date Encounter Closed Date Diagnosis/Indication Diagnosis SNOMED-CT Code Diagnosis ICD10 Code Diagnosis Note [id number] ALONZO Hackett (DAIRY DEPARTMENT MANAGER) [address] [place] [address] 05/11/2014 14:50:42 05/11/2014 16:24:28 Gynecologic examination [id number] ALONZO Hackett (DAIRY DEPARTMENT MANAGER) [address] [place] [address] 08/12/2014 15:51:11 08/12/2014 16:46:40 At increased risk of sexually transmitted infection [id number] COURTNEY ROUSE (DAIRY DEPARTMENT MANAGER) [address] [place] [address] 07/07/2020 08:57:08 07/09/2020 10:57:47 Reproductive care management 692703493 Z31.9 25yo F presents via phone for [...] pap. Past pregn gustavo history of miscarriage 206824098 Z87.59 Smoker 11097565 F17.985 [id number] Xiao Kaminski APN, [employer] [facility] (Adult Med) [address] [place] [address] 03/29/2021 09:49:22 04/01/2021 10:43:27 Adult health examination 793618889 Z00.01 Encouraged routine CONCEPTOR, vision, dental exams, well balanced diet. Administra tion of influenza vaccine 72647355 Z23 Obesity 098273027 E66.9 advised low fat, low cholestero l diet, regular exercise and weight reduction. Family his tory of premature coronary heart disease 495865671 Z82.49 father passed in 40's, hx of NE and pacemaker, Tobacco user 722146166 Z 72.0 Smoking cessation encouraged . Gastroesop hageal reflux disease without esophagitis 215660426 K21.9 infrequent ; diet advised Health Concerns Section Related Observation LastModified by Organization Detai ls LastModified Time None Recorded Concern Status LastModified by Organization Details LastModified Time None Recorded Advance Directives Directive N: Payers Encounter Date Sequence Insurance Name Policy Number Policy Dyson Covered Member ID Dyson Member ID Guarantor Name 05/11/2014 1 [employer] (MEDICAID HMO) [id number] [facility] [id number] [facility] 08/12/2014 1 [employer] (MEDICAID HMO) [id number] Dodie Rashid [id number] [facility] 07/07/2020 1 [employer] (MEDICAID HMO) [id number] [id number] 03/29/2021 1 [employer] (MEDICAID HMO) [id number] [facility] [id number] [facility] Notes Date Note Type Note Provider Name [...] remember the last time she had an DAIRY DEPARTMENT MANAGER or doctor visit. Partner does not have any children. She denies abnormal discharge, pelvic pain, vaginal symptoms, fevers, chills, n/v, urinary symptoms, changes in BMs. COURTNEY ROUSE Attn: Accounting[address] [place], [address], [place] [facility] 07/08/2020 13:26:58 03/29/2021 text/html Here to est care , has not had a pcp in a very long time,trying to conceive but irreg. periods, using juan to track, last year went 6 mos with out onehx of two miscarriages, Xiao Kaminski APN, [employer] Attn: Accounting[address] [facility] [place], [address], [place] [facility] 03/29/2021 14:05:50 OBGyn Episode Ob Episode Information Episode Created Date Number of Fetuses Patient Bloodtype Patient rh Status Prepregnancy Weight lbs Domestic Partner Domestic Partner Phone Father Name Fabric Inspector Status 07/07/19 21 1 CLOSED Fetus Data First Name Last Name Admitted to NICU Weight (g) Sex Living Outcome Pediatric Complications Fetus ID Race Codes Race Delivery Type , Spontane ous [id number] Josh Calculation Initial Josh Date Initial Exam [...] Domestic Partner Domestic Partner Phone Father Name Fabric Inspector Status 07/07/19 21 1 CLOSED Fetus Data First Name Last Name Admitted to NICU Weight (g) Sex Living Outcome Pediatric Complications Fetus ID Race Codes Race Delivery Type , Spontane ous [id number] Josh Calculation Initial Josh Date Initial Exam [...]
--- OUTSIDE RECORDS SUMMARY | 2024-09-03 17:55 | XMS_ITS ---
Author Organization [facility] Address [address] [place] [address] Care Team Providers Care Window Trimmer Apprentice Name Role Phone Lo Castro Primary Care Provider [phone] REASON FOR VISIT 6 month f/u Encounters Encounter Location Date Provider Diagnosis [address] [place] [address] 04/14/2024 Lo Castro Plan Of Treatment No Information Progress Notes * Dodie GILBERTDOB:[birth year] (29 yo F)Acc No.[id number]:04/14/2024 UNLOCKED PROGRESS NOTE Patient: Dodie LARSON Provider: LEATHA Merrill, LIVESTOCK SALES REPRESENTATIVE, ORDER EXPEDITER-C :1995 A ge:29 Y S ex:Female Date:04/14/2024 Address:[address] [place], [place] [id number] Subjective: * Chief Complaints: * 1 . 6 month f/u. * Medical History: Objective: * Vitals: Assessment: Plan: * Treatment: * * Electronic signature of Devon Castro , [id number] on 09/03/2024 at 05:54 PM CDT Sign off status: Pending * Provider: LEATHA Merrill, LIVESTOCK SALES REPRESENTATIVE, ORDER EXPEDITER-C Date: Generated for [employer]iny crews/Dank/Mounikasmitting on: 0 09/03/2024 05:54 PM CDT
--- OUTSIDE RECORDS SUMMARY | 2024-09-03 17:55 | XMS_ITS | Clinical Summary ---
Author Organization [facility] Address [address] [place] [address] Care Team Providers Care Software Development Analyst Name Role Phone Trinidad Dial MD Primary Care Provide r Allergies No known active allergies Medications chlorhexidine (PERIDEX) 0.12 % solution Swish 15 mL in mouth for 30 seconds then spit out twice a day after brushing teeth, 473 mL 12/01/19 20 Active acetaminophen-co deine (TYLENOL with CODEINE #3) 300-30 mg per tablet Take 1 tablet by mouth every 4 (four) hours as needed for pain 12 tablet 12/01/19 20 Active triamcinolone (KENALOG) 0.1 % cream Apply topically 3 (three) times a day Massage into area 3 times daily as directed. Collaborating physician Natanael Pandya MD 80 g 1 08/25/19 25 Active acetaminophen (TYLENOL) 500 mg tabletIndication s:Acute lymphangitis of left ankle Take 1 tablet (500 mg total) by mouth every 6 (six) hours as needed for pain Collaborating physician Natanael Pandya MD 30 tablet 08/25/19 25 Active cephalexin (KEFLEX) 500 mg capsuleIndicatio ns:Acute lymphangitis of left ankle Take 1 capsule (500 mg total) by mouth 3 (three) times a day for 7 days Collaborating physician Natanael Pandya MD 21 capsule 08/25/19 25 025 Active Problems Problem Noted Date Diagnosed Date Acute lymphangitis of left ankle 08/24/2024 Cellulitis of left ankle 08/24/2024 Estimated Date of Delivery Comme nts Yes 02/17/2025 Encounters Date Type Department Care Team Description 08/24/2024 12:34 PM CDT - 08/24/2024 12:55 PM CDT Emergency [facility] Emergency Department [address] [place] [address] Acute lymphangitis of left ankle (Primary Dx); Cellulitis of left ankle Discharge Disposition: Discharge to home or self care from Last 3 Months Social History Tobacco Use Types Packs/Day Years Used Date Smoking Tobacco: Every Day Smokeless Tobacco: Never Alcohol Use Standard Drinks/Week Comments Not Currently 0 (1 standard drink = 0.6 oz pur e alcohol) Personal Safety Answer Date Recorded Have you ever been in or are you currently in a harmful physical or emotional relationship or is someone making you feel afraid or unsafe? 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 Gender Identity Not on file Sexual Orientation Not on file Obstetrics History Para Term AB IAB SAB Ectopic Multiple Livin g Live Births 1 Date Outcome GA Total Labor Labor/2nd/3rd Weight Sex Type Anes PTL Irene A1 A5 Name Clin Current Last Filed Vital Signs Vital Sign Reading Time Taken Comments Blood Pressure 137/74 08/24/2024 12:32 PM CDT Pulse 100 08/24/2024 12:32 PM CDT Temperature 36.3 C (97.4 F) 08/24/2024 12:31 PM CDT Respiratory Rate 17 08/24/2024 12:32 PM CDT Oxygen Saturation 99% 08/24/2024 12:32 PM CDT Inhaled Oxygen Concentration - - Weight 118.4 kg (261 lb) 08/24/2024 12:32 PM CDT Height 170.2 cm (5' 7 ) 08/24/2024 12:32 PM CDT Body Mass Index 40.88 08/24/2024 12:32 PM CDT Plan of Treatment Health Maintenance Due Date Last Done Comments Cervical Cancer Screening 1994 Depression Screening 1994 Hepatitis C Screening 1994 DTaP/Tdap/Td Vaccine (1 - Tdap) 2005 Varicella Vaccines (1 of 2 - 13+ 2-dose series) 2007 Hepatitis B Screening 01/12/2012 Regular Well Visit/Exam 18-64 01/12/2012 Pneumococcal vaccine <65 (1 of 2 - PCV) 2013 Influenza Vaccine (#1) 2024 03/29/2021 HPV Vaccines Aged Out No longer eligi ble based on patient's age to complete this topic Insurance [facility] Member Subscriber Plan / Payer (Ef fective 2017-Present) Name:Dodie Rashid Relation to Subscriber:Self Name:Dodie Rashid Payer ID:[id number] (NAIC) Type:MEDICAID RISK OTHER Address: [place] [address] [facility] Care Teams Software Development Analyst Relationship Specialty Start Date End Date Trinidad Dial MD [address] [facility] [address] [place], [place] [id number] PCP - General Internal Medicine 08/24/24
--- OUTSIDE RECORDS SUMMARY | 2024-09-03 17:55 | XMS_ITS | Patient Health Record ---
Author Organization [facility] Address [address] [place] [address] Care Team Providers Care Beet Flumer Name Role Phone Lo Castro Primary Care Provider [phone] Lorraine Post Unavailable [phone] Sierra Bhatt Unavailable [phone] Allergies No Known Allergies Reason For Referral [...] Status Risk Notes Problem Generalized anxiety disorder (19522520) Generalized anxiety disorder (F41.1) Active confirmed Problem Major depression (830640678) Major depression (F32.9) Active confirmed continue to eval for bipolar chemistry Problem Methamphetamine abuse (698332489) Methamphetamine abuse (F15.10) Active confirmed reports no use since first week of September 2022 Problem Sleep disturbance (38115886) Sleep disturbance, unspecified (G47.9) Active confirmed Encounters Encounter Location Date Provider Diagnosis [address] [address] 09/19/2023 Lo Castro Major depression F32 .9 ; Sleep disturbance, unspecified G47.9 ; Generalized anxiety disorder F41.1 and Methamphetamine abuse F15.10 [facility] [address] [facility] [place] [address] 04/15/2024 Loalyson Castro Major depression F32 .9 ; Sleep disturbance, unspecified G47.9 ; Generalized anxiety disorder F41.1 and Methamphetamine abuse F15.[address] [address] 06/24/2024 Lo Castro [address] [address] 09/14/2023 Lorraine Post Major depression F32 .9 ; Sleep disturbance, unspecified G47.9 and Generalized anxiety disorder F41.[address] [address] 11/30/[address] [address] 12/11/[address] [address] 04/01/2024 Lo Castro Assessments Encounter Date Diagnosis [...] May also contact the 24-hour crisis hotline ([facility]), refer to the closest emergency room or [...] Insured Coverage Start Date Coverage End Date [employer] [address] [place] [address] [id number] Dodie Rashid Self - patient is the insured 3 [employer] [address] [place] [address] [id number] Dodie Rashid Self - patient is the insured 3 Medical (General) History Surgical History Surgery Date(Month/Year) tubing surgery (1 year old) 1994 dilatation and curettage (miscarriage) 2 016 Hospitalization History Reason Date(Month/Year) [facility]- [place] 2021 [facility] [place] 2022
--- OUTSIDE RECORDS SUMMARY | 2024-09-03 17:55 | XMS_ITS ---
Author Organization [facility] Address [address] [place] [address] Care Team Providers Care Sausage Wrapper Name Role Phone Lo Castro Primary Care Provider REASON FOR VISIT Encounters Encounter Location Date Provider Diagnosis [address] [place] [address] 06/24/2024 Lo Castro Plan Of Treatment No Information Progress Notes * Dodie GILBERTDOB:[birth year] (29 yo F)Acc No.[id number]:06/24/2024 UNLOCKED PROGRESS NOTE Patient: Abelardo ALFREDDodie HERNANDEZ :1995 A ge:29 Y S ex:Female Address:[address] [place] [address], [address] * * Date:
--- OUTSIDE RECORDS SUMMARY | 2024-09-03 17:55 | XMS_ITS | Referral Summary ---
Author Organization [facility] Address [address] [place] [address] Care Team Providers Care Web Marketing Manager Name Role Phone Trinidad Dial MD Primary Care Provide r Encounters Date Type Department Care Team Description 08/24/2024 12:34 PM CDT - 08/24/2024 12:55 PM CDT Emergency [facility] Emergency Department [address] [place] [address] Acute lymphangitis of left ankle (Primary Dx); Cellulitis of left ankle Discharge Disposition: Discharge to home or self care from Last 3 Months Allergies No known active allergies Medications chlorhexidine [...] Date of Delivery Comme nts Yes 02/17/2025 Social History Tobacco Use Types Packs/Day Years [...] on file 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
[2024-09-03 18:12] VITALS: BP 109/88; PULSE 78; RESP 16; TEMP 36.6; O2SAT 100
--- OUTSIDE RECORDS SUMMARY | 2024-09-03 19:00 | XMS_ITS | CONTINUITY OF CARE DOCUMENT ---
Author Name mery ordonez Address Unknown Organization [facility] Address [address] [facility] [address] [place] [address] Phone [phone] Care Team Providers Care Airport Location Manager Name Role Phone Adi Lopez MD Unavailable [phone] Adi Lopez MD Unavailable [phone] INSURANCE PROVIDERS Payer name Policy type / Coverage type [place] red alliance party ID [place] MEDICAID Medicaid [id number]
--- OUTSIDE RECORDS SUMMARY | 2024-09-03 19:00 | XMS_ITS | Clinical Summary ---
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
--- OUTSIDE RECORDS SUMMARY | 2024-09-03 19:00 | XMS_ITS | Referral Summary ---
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
== END 2024-09-03 18:59 | disposition left against medical advice (07) ==
LOC: ANHED 18:59
DX: M79.605 Pain in left leg (principal); M79.604 Pain in right leg
CPT/HCPCS: 99199

== ENCOUNTER 2024-12-03 12:37 | Outpatient (CLI) | payer OTHER, SELFPAY ==
[2024-12-03 13:59] LABS: Basophils Percent Auto 0.3 % (0.2-1.2); Eosinophils Absolute Auto 0.1 K/mm3 (0-0.3); Eosinophils Percent Auto 1.3 % (0-4.4); Hematocrit 33.8 % (37.0-47.0); Immature Granulocyte Absolute 0.05 K/mm3 (0.00-0.031); Immature Granulocyte Percent A 0.6 % (0-0.5); Lymphocytes Absolute Auto 1.54 K/mm3 (0.9-3.2); Lymphocytes Percent Auto 17.1 % (18.3-44.2); Mean Corpuscular HGB Conc 32.5 g/dl (32-36); Mean Corpuscular Hemoglobin 26.4 pg (26-34); Mean Corpuscular Volume 81.1 fl (80-100); Mean Platelet Volume 10.2 fl (7.4-10.4); Monocytes Absolute Auto 0.4 K/mm3 (0.1-0.6); Monocytes Percent Auto 4.1 % (2.6-8.5); Neutrophils Absolute Auto 6.9 K/mm3 (1.3-6.7); Neutrophils Percent Auto 76.6 % (45.5-73.1); Platelet Count Result 277 k/mm3 (150-375); Red Blood Count 4.17 M/mm3 (4.2-5.4); Red Cell Distribution Width 14.1 % (11.5-14.5)
--- OUTSIDE RECORDS SUMMARY | 2024-12-03 14:00 | XMS_ITS | Clinical Summary ---
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 30 - 44 mL/min/1.73m2 Severely decreased 15 - 29 mL/min/1.73m2 Kidney Failure < 15 mL/min/1.73m2 *Relative to young adult level Estimated glomerular filtration rate is determined by the 2020 CKD-EPI equation recommended by the National Kidney [employer] (A Unifying Approach to GFR Estimation: Recommendations of the NKF-ASK Task Force on Reassessing the Inclusion of Race in Diagnosing Kidney Disease, JASN 202). The CKD-EPI equation should not be used for patients with unstable renal function and has not been validated in children and those over 70. Current interpretive data was last reviewed 2021. Blood 09/15/2024 2:02 PM CDT 09/15/2024 2:09 PM CDT us Jeff Huber MD LAB BLOOD ORDERABLES Final Re sult [facility] [address] [facility] Department [place] [address] * (ABNORMAL) Differential, auto (09/15/2024 2:02 PM CDT) Neutrophil abs 7.2(H) 1.5 - 6.5 K/cumm Imm gran abs 0.0 0.0 - 0.1 K/cumm [facility] Lymphocyte abs 1.6 0.8 - 3.3 K/cumm [facility] Monocyte abs 0.6 0.2 - 0.8 K/cumm [facility] Eosinophil abs 0.2 0.0 - 0.5 K/cumm [facility] Basophil abs 0.0 0.0 - 0.1 K/cumm [facility] Neutrophil pct 74.5 % [facility] Comment: Interpretive Data Percent cell count reference ranges are not reported, since discordance with absolute values may lead to misinterpretation of CBC data. Current Interpretive Data was last revised on 2017. Imm gran pct 0.3 % [facility] Comment: Interpretive Data Percent cell count reference ranges are not reported, since discordance with absolute values may lead to misinterpretation of CBC data. Current Interpretive Data was last revised on 2017. Lymphocyte pct 16.9 % [facility] Comment: Interpretive Data Percent cell count reference ranges are not reported, since discordance with absolute values may lead to misinterpretation of CBC data. Current Interpretive Data was last revised on 2017. Monocyte pct 5.9 % [facility] Comment: Interpretive Data Percent cell count reference ranges are not reported, since discordance with absolute values may lead to misinterpretation of CBC data. Current Interpretive Data was last revised on 2017. Eosinophil pct 2.3 % [facility] Comment: Interpretive Data Percent cell count reference ranges are not reported, since discordance with absolute values may lead to misinterpretation of CBC data. Current Interpretive Data was last revised on 2017. Basophil pct 0.1 % [facility] Comment: Interpretive Data Percent cell count reference ranges are not reported, since discordance with absolute values may lead to misinterpretation of CBC data. Current Interpretive Data was last revised on 2017. Blood 09/15/2024 2:02 PM CDT 09/15/2024 2:09 PM CDT us Jeff Huber MD LAB BLOOD ORDERABLES Final Re sult [facility] [address] [facility] Department [place] [address] * Pro B-type natriuretic peptide (09/15/2024 2:02 PM CDT) NT-proBNP 55 <=300 pg/mL Comment: Interpretive Comments: A. Dyspnea in Acute Care Setting All Ages: < 300 pg/ml, acute heart failure unlikely. < 50 yrs: 300 - 450 pg/ml, further investigation warranted. > 450 pg/ml, acute heart failure likely. 50 - 74 yrs: 300 - 900 pg/ml, further investigation warranted. > 900 pg/ml, acute heart failure likely . > or = 75 yrs: 450 - 1800 pg/ml, further investigation warranted. > 1800 pg/ml, acute heart failure likely. B. Non-acute Setting < 75 yrs < 125 pg/ml, rules out heart failure. > or = 125 pg/ml, further investigation warranted. > or = 75 yrs < 450 pg/ml, rules out heart failure. > or = 450 pg/ml, further investigation warranted. - Knowledge of each individual patient's NT-proBNP range may be more useful than using similar cut-points for every patient. Please note that marked elevations in NT-proBNP levels may be observed in state other than Left Ventricular Congestive Failure, including: acute coronary syndromes, right heart strain/failure (including pulmonary embolism and cor pulmonale), critical illness, renal failure, as well as advanced age. - References: 1. Radha LIN et.al. Eur Heart J. 2006:27:330-337. 2. Tanya RW, Uriel AM. J. AM Dave Cardiol: Cardiovasc Imag. 2009;2: 216- 225. Interpretive Data Last Revised Date: 2018. Blood 09/15/2024 2:02 PM CDT 09/15/2024 2:09 PM CDT Conor Cavazos MD LAB BLOOD ORDERABLES Final Result Performing Organization Address City/[facility]/ZIP Co de Phone Number [address] [place] [address] * (ABNORMAL) CBC with auto differential (09/15/2024 2:02 PM CDT) [facility] WBC 9.6 3.8 - 9.9 K/cumm Hgb 11.1(L) 11.9 - 15.5 g/dL [facility] Hct 33.5(L) 35.6 - 45.5 % [facility] Plt 285 150 - 400 K/cumm [facility] MPV 10.1 9.1 - 12.3 fL [facility] RBC 4.05 3.90 - 5.20 M/cumm [facility] MCV 82.7 81.3 - 96.4 fL [facility] MCH 27.4 27.1 - 33.3 pg [facility] MCHC 33.1 32.3 - 35.7 g/dL [facility] RDW CV 13.7 11.1 - 14.9 % [facility] RDW SD 41.2 35.7 - 48.1 fL [facility] NRBC abs 0.00 0.00 - 0.01 K/cumm [facility] Blood Venous blood specimen / Unknown 09/15/2024 2:02 PM CDT 09/15/2024 2:09 PM CDT Jeff Huber MD LAB BLOOD ORDERABLES Final Re sult [address] [place] [address] * (ABNORMAL) hCG, blood, quantitative (09/15/2024 2:02 PM CDT) Pathologist [facility] hCG, quant 9,550.0(H ) 0.0 - 5.0 IUnits/L Comment: Interpretive Data Male: < 5 IU/L Non- premenopausal Female: <5 IU/L The [employer] hCG Beta Quant assay procedure was used. Results from different manufacturers or methods may not be comparable. Serial testing should be performed using the same method. Interpretive Data was last revised on 2023 Blood 09/15/2024 2:02 PM CDT 09/15/2024 2:09 PM CDT Jeff Huber MD LAB BLOOD ORDERABLES Final Re sult [facility] [address] [facility] Department [place] [address] * (ABNORMAL) Comprehensive metabolic panel (09/15/2024 2:02 PM CDT) Sodium 137 135 - 145 mmol/L Potassium, pl 3.7 3.3 - 4.9 mmol/L [facility] Chloride 104 97 - 110 mmol/L [facility] CO2 20(L) 22 - 32 mmol/L [facility] Anion gap 13 2 - 15 mmol/L [facility] BUN 3(L) 6 - 25 mg/dL [facility] Creatinine 0.45(L) 0.60 - 1.10 mg/dL [facility] Glucose 126 70 - 199 mg/dL [facility] Comment: Interpretive Data Fasting glucose >/= 126 mg/dl is diagnostic for diabetes. Fasting is defined as no caloric intake for at least 8 hours. Fasting glucose between 100 mg/dl to 125 mg/dl is diagnostic of prediabetes. In a patient with classic symptoms of hyperglycemia or hyperglycemic crisis, a random glucose >/= 200 mg/dl is diagnostic for diabetes. In the absence of unequivocal hyperglycemia, results should be confirmed by repeat testing. The classification and Diagnosis of Diabetes Diabetes Care 202; 46: S19-S40. Current interpretive data was last revised 2022. Calcium 9.1 8.5 - 10.3 mg/dL [facility] Bilirubin, total 0.2 0.1 - 1.2 mg/dL [facility] Protein, pl 6.6 6.5 - 8.5 g/dL [facility] Albumin 3.8 3.5 - 5.0 g/dL [facility] Alk phos 68 40 - 130 Units/L [facility] ALT 12 7 - 45 Units/L [facility] AST 15 10 - 45 Units/L [facility] Blood 09/15/2024 2:02 PM CDT 09/15/2024 2:09 PM CDT Jeff Huber MD LAB BLOOD ORDERABLES Final Re sult Performing Organization Address City/[facility] Co de Phone Number [facility] [address] [facility] Department [place] [address] * ECG 12 lead (09/15/2024 1:56 PM CDT) Pathologist [facility] Ventricular Rate EKG/Min 89 BPM [facility] Atrial Rate [address] [facility] VA-Interval (MSEC) [address] [facility] QRS-Interval (MSEC) [address] [facility] QT-Interval (MSEC) [address] [facility] QTc [address] [facility] P [place] [address] [facility] R [place] [address] [facility] T [place] [address] [facility] Diagnosis Normal sinus rhythm with sinus arrhythmia Normal ECG No previous ECGs available Confirmed by ROE RAMÍREZ M.D. ([id number]) on 09/16/2024 9:10:49 AM [facility] 09/15/2024 1:56 PM CDT 09/16/2024 9:10 AM CDT Jeff Huber MD ECG ORDERABLES Final Result Performing Organization Address [facility] Co de Phone Number [facility] from Last 3 Months Insurance [facility] Advance Directives For more information, please contact: [phone] * Full Code (Latest Code Status on File) Date Activated Date Inactivated Comments 09/16/2024 12:49 AM 09/17/2024 4:19 PM Healthcare Agents on File Name Relationship Healthcare Agent Relationshi p Communication September Gay Mother Health Care Agent Charles Jefferson Friend [facility] Health Care Agent Care Teams Retail Worker Relationship Specialty Start Date End Date Trinidad Dial MD [address] [facility] [address] [place] [address] PCP - General Internal Medicine 08/24/24
--- OUTSIDE RECORDS SUMMARY | 2024-12-03 14:00 | XMS_ITS | CONTINUITY OF CARE DOCUMENT ---
Author Name mery ordonez Address Unknown Organization [facility] Address [address] [place] [address] Phone [phone] Care Team Providers Care Grain Elevator Man Name Role Phone Adi Lopez MD Unavailable [phone] Adi Lopez MD Unavailable INSURANCE PROVIDERS Payer name Policy type / Coverage type [employer] red libertarian [place] [employer] Medicaid [id number]
--- OUTSIDE RECORDS SUMMARY | 2024-12-03 14:00 | XMS_ITS | Patient Health Record ---
Author Organization [facility] Address [address] [place] [address] Care Team Providers Care Retail Presentation Specialist Name Role Phone Lo Castro Primary Care Provider [phone] Unavailable [phone] Allergies No Known Allergies Reason For Referral [...] Status Risk Notes Problem Generalized anxiety disorder (19545514) Generalized anxiety disorder (F41.1) Active confirmed Problem Major depression (048662716) Major depression (F32.9) Active confirmed continue to eval for bipolar chemistry Problem Methamphetamine abuse (434490002) Methamphetamine abuse (F15.10) Active confirmed reports no use since first week of September 2022 Problem Sleep disturbance, unspecified (G47.9) Active confirmed Encounters Encounter Location Date Provider Diagnosis [address] [place] [address] 12/11/[address] [place] [address] 04/01/[address] [address] 06/24/2024 [facility] [address] [facility] [address] 04/15/2024 Lo Matthew Major depression F32 .9 ; Sleep disturbance, [...] Insured Coverage Start Date Coverage End Date Team [employer] [address] [place] [address] [id number] Dodie Rashid Self - patient is the insured 3 [employer] [address] [place] [address] [id number] Dodie Rashid Self - patient is the insured 3 Medical (General) History Surgical History Surgery Date(Month/Year) tubing surgery (1 year old) 1994 dilatation and curettage (miscarriage) 2 016 Hospitalization History Reason Date(Month/Year) - [place] 2021 - [place] 2022
--- OUTSIDE RECORDS SUMMARY | 2024-12-03 14:00 | XMS_ITS | Data Portability ---
Author Organization [place] [facility] Address [address] [facility] [place] [address] Care Team Providers Care Tankerman Name Role Phone LORETO RENDON Aquatic Life Laborer Assessment Encounter Date Assessment Date Assessment LastModified by Organization Details LastModified Time 07/07/2020 07/07/2020 Natanael Dickson PA-S Not available 07/07/2020 15:38:27 Plan of Treatment Reminders Order Date Submit Date Provider Last Modified By Organization Details Last Modified Time Details Appointments None recorded. Lab vitamin D, 25-hydroxy , total, serum 2020 [facility], [address] [facility], [facility] [address], [place], [address], 08:21:50 HbA1c (hemoglobi n A1c), blood 2020 [facility], [address] [facility], [facility] [address], [place], [address], 08:21:49 TSH, ultra-sens itive, serum 2020 [facility], [address], [place], [address], 08:21:51 CMP, serum or plasma 2020 GLEN [facility], [address], [place], [address], 08:21:45 lipid panel, serum 2020 [facility], [address], [place], [address], 08:21:47 CBC 2020 [facility], [address], [place], [address], 08:21:46 mthfr (methylene tetrahydro folate reductase) mutation, blood/tiss ue 2020 021 [facility], Shaylee Hansen, [address], [place], [address], 09:57:07 CBC w/ auto diff 2020 021 [facility], Shaylee Hansen, [address], [place], [address], 13:30:18 CMP, serum or plasma 2020 021 [facility], Shaylee Hansen, [address], [place], [address], 13:30:19 lh + FSH, serum 2020 021 [facility], Shaylee Hansen, [address], [place], [address], 13:30:20 estradiol, serum 2020 021 [facility], Shaylee Hansen, [address], [place], [address], 13:30:20 TSH, ultra-sens itive, serum 2020 021 [facility], [address]aylee [address], [address], [place], [address], 1 13:30:19 HbA1c (hemoglobi n A1c), blood 2020 021 [facility], [address] [facility], [address], [place], [address], 1 13:30:19 testostero ne, total, serum 2020 021 [facility], [address] [facility] [address], [address], [place], [address], 1 13:30:20 dhea-sulfa te, serum 2020 021 [facility], [address] [place] [address], [address], [place], [address], 1 13:30:19 CT + NG + TV, DNA, urine/swab 2020 021 [facility], [address] [facility], [address], [place], [address], 1 13:30:21 bacterial vaginosis + vaginitis panel, vaginal 2014 [facility], [address], [place], [address], 5 10:34:30 HSV (1+2) DNA, qual, PCR, unspecifie d specimen 2014 015 [facility], [address], [place], [address], 5 10:34:30 test, urine 2014 015 [email or web address] In-Office Order, Internal Use Only DO Not Attach Compendium DO Not Attach Compendium, Do Not Delete/merge, [id number] 5 12:15:52 urinalysis , dipstick 2014 015 [email or web address] In-Office Order, Internal Use Only DO Not Attach Compendium DO Not Attach Compendium, Do Not Delete/merge, [id number] 5 12:15:52 test, urine 2013 014 [email or web address] In-Office Order, Internal Use Only DO Not Attach Compendium DO Not Attach Compendium, Do Not Delete/merge, [id number] 5 13:46:12 urinalysis , dipstick 2013 014 [email or web address] In-Office Order, Internal Use Only DO Not Attach Compendium DO Not Attach Compendium, Do Not Delete/merge, [id number] 5 13:46:12 Referral None recorded. Procedures None recorded. Surgeries None recorded. Imaging XR, hysterosal pingogram 2020 021 [facility]), [address] [place], [address], 15:07:05 Medication Orders 28 mg iron-800 mcg tablet 2020 021 [id number], [address] [facility], [place], [place], [id number], 09:57:45 Patient TargetsNo targets recorded. Patient Instructions Encounter Date Encounter Id Patient Instructions Last Modified By Organization Details Last Modified Time 07/07/2020 [id number] Quitting Tobacco : Care Instructions Not available 07/08/2020 09:57:15 03/29/2021 [id number] influenza (flu) vaccine: care instructions Not available [...] 16:55:49 08/12/1908/12/2014 urina lysis , dipst ick Protein Negati ve Not Available In-Office Order Internal Use Only DO Not Attach Compendium DO Not Attach Compendium, Do Not Delete/merge, 08/12/2014 16:55:49 08/12/1908/12/2014 urina lysis , dipst ick pH 6.0 Not Available In-Office Order Internal Use Only DO Not Attach Compendium DO Not Attach Compendium, Do Not Delete/merge, 08/12/2014 16:55:49 08/12/1908/12/2014 urina lysis , dipst ick Blood Modera te Not Available In-Office Order Internal Use Only DO Not Attach Compendium DO Not Attach Compendium, Do Not Delete/merge, [facility] 08/12/2014 16:55:49 08/12/19 15 08/12/2014 urina lysis , dipst ick Specific [place] 1.025 Not Available In-Off ice Order Internal Use Only DO Not Attach Compendium DO Not Attach Compendium, Do Not Delete/merge, [facility] 08/12/2014 16:55:49 08/12/19 15 08/12/2014 urina lysis , dipst ick Ketone Negati ve Not Available In-Office Order Internal Use Only DO Not Attach Compendium DO Not Attach Compendium, Do Not Delete/merge, [facility] 08/12/2014 16:55:49 08/12/19 15 08/12/2014 urina lysis , dipst ick Bilirubin Negati ve Not Available In-Office Order Internal Use Only DO Not Attach Compendium DO Not Attach Compendium, Do Not Delete/merge, [facility] 08/12/2014 16:55:49 08/12/19 15 08/12/2014 urina lysis , dipst ick Glucose Negati ve Not Available In-Office Order Internal Use Only DO Not Attach Compendium DO Not Attach Compendium, Do Not Delete/merge, [facility] 08/12/2014 16:55:49 08/12/1908/12/2014 urina lysis , dipst ick Appearance Clear Not Available In-Offi ce Order Internal Use Only DO Not Attach Compendium DO Not Attach Compendium, Do Not Delete/merge, [facility] 08/12/2014 16:55:49 08/12/1908/12/2014 urina lysis , dipst ick Color Yellow Not Available In-Office Order Internal Use Only DO Not Attach Compendium DO Not Attach Compendium, Do Not Delete/merge, [facility] 08/12/2014 16:55:49 08/12/1908/12/2014 pregn gustavo test, urine HCG negati ve Not Available In-Office Order Internal Use Only DO Not Attach Compendium DO Not Attach Compendium, Do Not Delete/merge, [id number] 08/12/2014 16:55:49 05/11/20 14 05/11/2014 urina lysis , dipst ick Leukocytes Negati ve Not Available In-Office Order Internal Use Only DO Not Attach Compendium DO Not Attach Compendium, Do Not Delete/merge, [id number] 05/11/2014 15:49:56 05/11/20 14 05/11/2014 urina lysis , dipst ick Nitrite negati ve Not Available In-Office Order Internal Use Only DO Not Attach Compendium DO Not Attach Compendium, Do Not Delete/merge, [id number] 05/11/2014 15:49:56 05/11/20 14 05/11/2014 urina lysis [...] 05/11/2014 urina lysis , dipst ick Specific [place] 1.025 Not Available In-Off ice Order Internal Use Only DO Not Attach Compendium DO Not Attach Compendium, Do Not Delete/merge, 05/11/2014 15:49:56 05/11/20 14 05/11/2014 urina lysis , dipst ick Ketone Negati ve Not Available In-Office Order Internal Use Only DO Not Attach Compendium DO Not Attach Compendium, Do Not Delete/merge, [id number] 05/11/2014 15:49:56 05/11/20 14 05/11/2014 urina lysis , dipst ick Bilirubin Negati ve Not Available In-Office Order Internal Use Only DO Not Attach Compendium DO Not Attach Compendium, Do Not Delete/merge, [id number] 05/11/2014 15:49:56 05/11/20 14 05/11/2014 urina lysis , dipst ick Glucose Negati ve Not Available In-Office Order Internal Use Only DO Not Attach Compendium DO Not Attach Compendium, Do Not Delete/merge, [id number] 05/11/2014 15:49:56 05/11/20 14 05/11/2014 urina lysis , dipst ick Appearance Slight ly Cloudy Not Available In-Office Order Internal Use Only DO Not Attach Compendium DO Not Attach Compendium, Do Not Delete/merge, 05/11/2014 15:49:56 05/11/20 14 05/11/2014 urina lysis , dipst ick Color Yellow Not Available In-Office Order Internal Use Only DO Not Attach Compendium DO Not Attach Compendium, Do Not Delete/merge, [id number] 05/11/2014 15:49:56 05/11/20 14 05/11/2014 pregn gustavo test, urine HCG negati ve Not Available In-Office Order Internal Use Only DO Not Attach Compendium DO Not Attach Compendium, Do Not Delete/merge, [id number] 05/11/2014 15:49:56 08/12/19 15 08/17/2014 bacte rial vagin osis + vagin itis panel , vagin al atopobium vaginae LOW - 0 score Not Available [facility] ([facility]) [address] [facility] [address], [place], [address], 08/18/2014 14:35:15 08/12/19 15 08/17/2014 bacte rial vagin osis + vagin itis panel , vagin al bvab 2 LOW - 0 score Not Available [facility] ([facility]) [address] [facility] [address], [place], [address], 08/18/2014 14:35:15 08/12/19 15 08/17/2014 bacte rial [...] E CRISTIN CTERI STICS DETER MINED BY [employer]. IT HAS NOT BEEN CLEAR ED OR APPRO FLORA BY THE FOOD AND DRUG ADMIN ISTRA TION. THE FDA HAS DETER MINED THAT SUCH CLEAR ANCE OR APPRO NYDIA IS NOT NECES CHARLEEN. Not Available [facility] ([facility]) [address] [place], [address], 08/18/2014 14:35:15 08/12/19 15 08/17/2014 bacte rial vagin osis + vagin itis panel , vagin al jasmina albicans, JOHN NEGATI VE negati ve Not Available [facility] ([facility]) [address] [place], [address], 08/18/2014 14:35:15 08/12/19 15 08/17/2014 bacte rial vagin osis + vagin itis panel , vagin al jasmina glabrata, JOHN NEGATI VE negati ve THIS TEST WAS DEVEL OPED AND ITS PERFO RMANC E CRISTIN CTERI STICS DETER MINED BY [facility]. IT HAS NOT BEEN CLEAR ED OR APPRO FLORA BY THE FOOD AND DRUG ADMIN ISTRA TION. THE FDA HAS DETER MINED THAT SUCH CLEAR ANCE OR APPRO NYDIA IS NOT NECES CHARLEEN. Not Available [facility] ([facility]) [address] [place], [address], 08/18/2014 14:35:15 08/12/19 15 08/18/2014 bacte rial vagin osis + vagin itis panel , vagin al trich vag by JOHN NEGATI VE negati ve Not Available [facility] ([facility]) [address] [place], [address], 08/18/2014 14:35:15 08/12/19 15 08/18/2014 bacte rial vagin osis + vagin itis panel , vagin al chlamydia trachomatis, JOHN NEGATI VE negati ve Not Available [facility] ([facility]) [address] [place], [address], 08/18/2014 14:35:15 08/12/19 15 08/18/2014 bacte rial vagin osis + vagin itis panel , vagin al neisseria gonorrhoeae, JOHN NEGATI VE negati ve Not Available [facility] ([facility]) [address] [place], [address], 08/18/2014 14:35:15 08/12/19 15 08/15/2014 HSV (1+2) DNA, qual, PCR, unspe cifie d speci men hsv 1 JOHN NEGATI VE negati ve Not Available [facility] ([facility]) [address] [place], [address], 08/18/2014 14:35:16 08/12/19 15 08/15/2014 HSV (1+2) DNA, qual, PCR, unspe cifie d speci men hsv 2 JOHN NEGATI VE negati ve Not Available [facility] ([facility]) [address] [place], [address], 08/18/2014 14:35:16 03/29/20 21 03/30/2021 COMP. METAB OLIC PANEL (14) glucose 85 mg/dL 65-99 Not Available [facility] ([facility]) [address] [place], [address], 03/30/2021 08:21:45 03/29/2003/30/2021 COMP. METAB OLIC PANEL (14) BUN 8 mg/dL 6-20 Not Available [facility] ([facility]) [address] [facility], [place], [address], 03/30/2021 08:21:45 03/29/2003/30/2021 COMP. METAB OLIC PANEL (14) creatinine 0.57 mg/dL 0.57-1 .00 Not Available [facility] ([facility]) [address] [facility], [place], [address], 03/30/2021 08:21:45 03/29/2003/30/2021 COMP. METAB OLIC PANEL (14) eGFR if nonafricn AM 127 mL/mi n/1.7 3 >59 Not Available [facility] ([facility]) [address] [facility], [place], [address], 03/30/2021 08:21:45 03/29/2003/30/2021 COMP. METAB OLIC PANEL [...] SN Task force . Not Available [facility] ([facility]) [address] [facility], [place], [address], 03/30/2021 08:21:45 03/29/2003/30/2021 COMP. METAB OLIC PANEL (14) BUN/creatini ne ratio 14 9-23 Not Available [facility]) [address] [facility], [place], [address], 03/30/2021 08:21:45 03/29/20 21 03/30/2021 COMP. METAB OLIC PANEL (14) sodium 139 mmol/ L 134-14 4 Not Available [facility] ([facility]) [address] [place], [address], 03/30/2021 08:21:45 03/29/20 21 03/30/2021 COMP. METAB OLIC PANEL (14) potassium 4.4 mmol/ L 3.5-5. 2 Not Available [facility] ([facility]) [address] [place], [address], 03/30/2021 08:21:45 03/29/2003/30/2021 COMP. METAB OLIC PANEL (14) chloride 103 mmol/ L 96-106 Not Available [facility]) [address] [facility], [place], [address], 03/30/2021 08:21:45 03/29/20 21 03/30/2021 COMP. METAB OLIC PANEL (14) carbon dioxide, total 22 mmol/ L 20-29 Not Available [facility]) [address] [place], [address], 03/30/2021 08:21:45 03/29/20 21 03/30/2021 COMP. METAB OLIC PANEL (14) calcium 9.6 mg/dL 8.7-10 .2 Not Available [facility] ([facility]) [address] [place], [address], 03/30/2021 08:21:45 03/29/20 21 03/30/2021 COMP. METAB OLIC PANEL (14) protein, total 7.2 g/dL 6.0-8. 5 Not Available [facility] ([facility]) [address] [place], [address], 03/30/2021 08:21:45 03/29/20 21 03/30/2021 COMP. METAB OLIC PANEL (14) albumin 4.5 g/dL 3.9-5. 0 Not Available [facility]) [address] [facility], [place], [address], 03/30/2021 08:21:45 03/29/20 21 03/30/2021 COMP. METAB OLIC PANEL (14) globulin, total 2.7 g/dL 1.5-4. 5 Not Available [facility] ([facility]) [address] [facility], [place], [address], 03/30/2021 08:21:45 03/29/2003/30/2021 COMP. METAB OLIC PANEL (14) A/G ratio 1.7 1.2-2. 2 Not Available [facility] ([facility]) [address] [facility], [place], [address], 03/30/2021 08:21:45 03/29/2003/30/2021 COMP. METAB OLIC PANEL (14) bilirubin, total 0.3 mg/dL 0.0-1. 2 Not Available [facility] ([facility]) [address] [facility], [place], [address], 03/30/2021 08:21:45 03/29/2003/30/2021 COMP. METAB OLIC PANEL (14) alkaline phosphatase 147 IU/L 44-121 above high normal Ple ase note refer ence inter nydia vasquez e Not Available [facility] ([facility]) [address] [facility], [place], [address], 03/30/2021 08:21:45 03/29/2003/30/2021 COMP. METAB OLIC PANEL (14) AST (SGOT) 40 IU/L 0-40 Not Available [facility] ([facility]) [address] [facility], [place], [address], 03/30/2021 08:21:45 03/29/2003/30/2021 COMP. METAB OLIC PANEL (14) ALT (SGPT) 71 IU/L 0-32 above high normal Not Available [facility] ([facility]) [address] [place], [address], 03/30/2021 08:21:45 03/29/2003/30/2021 CBC, NO DIFFE RENTI AL/PL ATELE T WBC 11.3 x10e3 /uL 3.4-10 .8 above high normal Not Available [facility] ([facility]) [address] [facility], [place], [address], 03/30/2021 08:21:46 03/29/2003/30/2021 CBC, NO DIFFE RENTI AL/PL ATELE T RBC 4.97 x10e6 /uL 3.77-5 .28 Not Available [facility] ([facility]) [address] [place], [address], 03/30/2021 08:21:46 03/29/2003/30/2021 CBC, NO DIFFE RENTI AL/PL ATELE T hemoglobin 14.5 g/dL 11.1-1 5.9 Not Available [facility] ([facility]) [address] [place], [address], 03/30/2021 08:21:46 03/29/2003/30/2021 CBC, NO DIFFE RENTI AL/PL ATELE T hematocrit 43.6 % 34.0-4 6.6 Not Available [facility] ([facility]) [address] [place], [address], 03/30/2021 08:21:46 03/29/2003/30/2021 CBC, NO DIFFE RENTI AL/PL ATELE T MCV 88 fL 79-97 Not Available [facility] ([facility]) [address] [place], [address], 03/30/2021 08:21:46 03/29/2003/30/2021 CBC, NO DIFFE RENTI AL/PL ATELE T MCH 29.2 pg 26.6-3 3.0 Not Available [facility] ([facility]) [address] [place], [address], 03/30/2021 08:21:46 03/29/2003/30/2021 CBC, NO DIFFE RENTI AL/PL ATELE T MCHC 33.3 g/dL 31.5-3 5.7 Not Available [facility] ([facility]) [address] [place], [address], 03/30/2021 08:21:46 03/29/2003/30/2021 CBC, NO DIFFE RENTI AL/PL ATELE T RDW 12.2 % 11.7-1 5.4 Not Available [facility]) [address] [place], [address], 03/30/2021 08:21:46 03/29/2003/30/2021 CBC, NO DIFFE RENTI AL/PL ATELE T NRBC STATION WORKER Not Available [facility] ([facility]) [address] [place], [address], 03/30/2021 08:21:46 03/29/20 21 03/30/2021 LIPID PANEL cholesterol, total 198 mg/dL 100-19 9 Not Available [facility] ([facility]) [address] [place], [address], 03/30/2021 08:21:47 03/29/2003/30/2021 LIPID PANEL triglyceride s 188 mg/dL 0-149 above high normal Not Available [facility] ([facility]) [address] [place], [address], 03/30/2021 08:21:47 03/29/20 21 03/30/2021 LIPID PANEL HDL cholesterol 34 mg/dL >39 below low normal Not Available [facility]) [address] [place], [address], 03/30/2021 08:21:47 03/29/2003/30/2021 LIPID PANEL VLDL cholesterol stan 34 mg/dL 5-40 Not Available [facility]) [address] [place], [address], 03/30/2021 08:21:47 03/29/2003/30/2021 LIPID PANEL LDL chol calc ([facility]) 130 mg/dL 0-99 above high normal Not Available [facility]) [address] [place], [address], 03/30/2021 08:21:47 03/29/2003/30/2021 LIPID PANEL comment: STATION WORKER Not Available [facility]) [address] [place], [address], 03/30/2021 08:21:47 03/29/2003/30/2021 HEMOG LOBIN A1C hemoglobin A1C 6.5 % 4.8-5. 6 above high normal Predi abete s: 5.7 - 6.4 Diabe linda: >6.4 Glyce sandy contr ol for adult s with diabe linda: <7.0 Not Available [facility] ([facility]) [address] [place], [address], 03/30/2021 08:21:48 03/29/2003/30/2021 VITAM IN D, 25-HY [...] Endoc rine Socie ty went on to [facility] er defin e vitam in D insuf ficie ncy as a level betwe en 21 and 29 ng/mL (2). 1. IOM (Inst itute of Medic ine). 2010. Dieta ry refer ence intak es for calci um and D. Hiral g[place]: The [facility] . 2. Karthik tian MF, Jim maynard [place], Matthew off-F mireille i FOWLER, et al. Evalu ation , treat ment, and preve ntion of vitam in D defic iency : an Endoc rine Socie ty clini stan pract ice guide line. JCEM. 2010; 96(7) :1911 -30. Not Available [facility]) [address] [facility], [place], [address], 03/30/2021 08:21:50 03/29/2003/30/2021 TSH RFX ON ABNOR MAL TO FREE T4 TSH 3.770 uIU/m L 0.450- 4.500 Not Available [facility] ([facility]) [address] [facility] [address], [place], [address], 03/30/2021 08:21:51 Result Notes None recorded. Problems No Known Problems Procedures Surgical History Date Name Laterality Status Provider Name and Address Organization Details Recorded Time 06/18/19 16 Dilation and curettage completed Asiya Wilson MA [facility] 07/07/2020 10:25:45 06/18/18 95 falloposcopy completed Asiya Wilson MA [facility] 07/07/2020 10:26:58 Imaging Results None recorded. [...] Updated DateTime 07/07/2020 170.18 cm 43.9 kg/m2 514433.86 g Asiya Wilson MA [place] [facility] 07/07/2020 10:15:29 Date Recorded Body height Body mass index (BMI) Body weight Systolic blood pressure Diastolic blood pressure Provider Name and Address Organization Details Last Updated DateTime 08/12/2014 170.18 cm 33.4 kg/m2 28232.17 481 g 122 mm[Hg] 84 mm[Hg] Catie Hoang [place] [facility] 16:09:15 Date Recorded Body height Body mass index (BMI) Body weight Oxygen saturation Oxygen saturation in Arterial blood by Pulse oximetry Heart rate Respiratory rate Body temperature Systolic blood pressure Diastolic blood pressure Provider Name and Address Organization Details Last Updated DateTime 170.18 cm 40.8 kg/m2 164754. 12 g 98 % 98 % 94 /min 16 /min 98.1 [degF] 126 mm[Hg] 84 mm[Hg] Autumn Corado [place] [facility] 09:57:01 Date Recorded Body height Body mass index (BMI) Body weight Systolic blood pressure Diastolic blood pressure Provider Name and Address Organization Details Last Updated DateTime 05/11/2014 170.18 cm 32.3 kg/m2 31991.02 822 g 104 mm[Hg] 62 mm[Hg] Catie Hoang MA [facility] 4 15:38:03 Social History Question Answer Notes LastModified by Organizat ion Details LastModified Time Tobacco Smoking Status Current Every Day Smoker Catie Hoang MA null, [place] - [facility] 05/11/2014 15:48:47 Do You Have An Advance Directive? No Information not available 05/11/2014 Are You Blind Or Do You Have [...] No Information not available 03/29/2021 Are You Deaf Or Do You Have Serious Difficulty Hearing? No Information not available 03/29/2021 What Type Of Diet Are You Following? REGULAR Information not available 05/11/2014 Which Illicit Or Recreational Drugs Have You Used? None Information not available 05/11/2014 Education 12 Information no t available 05/11/2014 Are There Any Guns Present In Your [...] Low Information not available 07/07/2020 Do You Use Sunscreen Routinely? No Information not available 05/11/2014 On What Date Was Tobacco Cessation Counseling Provided? 07/07/2020 Information not available 07/07/2020 How Many Years Have You Smoked Tobacco? 10 03/29/2021 Information not available 03/29/2021 Sex: Unknown Functional Status Question Answer Note LastModified by Organizat ion Details LastModified Time Do you use any illicit or recreational drugs? Yes Information not available 03/29/2021 What is your level of alcohol consumption? Occasional Information not available 03/29/2021 Are you currently employed? Yes Information not available 07/07/2020 Are you able to care for yourself? 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 Never used electronic cigarettes Information not available 07/07/2020 What is your exercise level? Occasional Information not available 05/11/2014 Mental Status Question Answer Note LastModified by Organization D etails LastModified Time Do you feel stressed (tense, restless, nervous, or anxious, or unable to sleep at night)? [id number] Information not available 03/29/2021 Family History Relationship Description Onset Age of [...] N Depression Y Anemia N Heart Attack ([place]) N Diabetes N Anxiety Disorder N Seizures/Epilepsy [...] virus, quadrivalent, preservative completed Autumn Corado [place] null, [place] [facility] 03/29/2021 10:40:33 Past Encounters Encounter ID Performer Location Encounter Start Date Encounter Closed Date Diagnosis/Indication Diagnosis SNOMED-CT Code Diagnosis ICD10 Code Diagnosis Note [id number] MD Zenon Zhong (COLLECTION ADMINISTRATOR) [address] [place] [id number] 05/11/2014 14:50:42 05/11/2014 16:24:28 Gynecologic examination [id number] MD Zenon Zhong (COLLECTION ADMINISTRATOR) [address] [place] [id number] 08/12/2014 15:51:11 08/12/2014 16:46:40 At increased risk of sexually transmitted infection [id number] COURTNEY ROUSE (COLLECTION ADMINISTRATOR) [address] [place] [id number] 07/07/2020 08:57:08 07/09/2020 10:57:47 Reproductive care management 803743895 Z31.9 25yo F presents via phone for [...] pap. 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 Administra tion of influenza vaccine 20014516 Z23 Obesity 890980448 E66.9 advised low fat, low cholestero l diet, regular exercise and weight reduction. Family his tory of premature coronary heart disease 294847301 Z82.49 father passed in 40's, hx of [place] and pacemaker, Tobacco user 517360525 Z 72.0 Smoking cessation encouraged . Gastroesop hageal reflux disease without esophagitis 117493801 K21.9 infrequent ; diet advised Health Concerns Section Related Observation LastModified by Organization Detai ls LastModified Time None Recorded Concern Status LastModified by Organization Details LastModified Time None Recorded Advance Directives Directive N: Payers Insurance Date Sequence Insurance Name Policy Number Policy Dyson Covered Member ID Dyson Member ID Guarantor Name 03/28/2021 1 [facility] (MEDICAID HMO) [id number] [facility] [id number] [facility] 07/07/2020 1 [facility] (MEDICAID HMO) [id number] [facility] [id number] [facility] 07/07/2020 1 [place] [facility] Dodie [place] [id number] Dodie [place] Notes Date Note Type Note Provider Name [...] remember the last time she had an COLLECTION ADMINISTRATOR or doctor visit. Partner does not have any children. She denies abnormal discharge, pelvic pain, vaginal symptoms, fevers, chills, n/v, urinary symptoms, changes in BMs. COURTNEY ROUSE Attn: Accounting, 1 [facility], [place], [address], [facility] 07/08/2020 13:26:58 03/29/2021 text/html Here to est care , has not had a pcp in a very long time,trying to conceive but irreg. periods, using juan to track, last year went 6 mos with out onehx of two miscarriages, Xiao Kaminski APN, ZINA-C Attn: Accounting,[address] [facility], [place], [address], [facility] 03/29/2021 14:05:50 OBGyn Episode Ob Episode Information Episode Created Date Number of Fetuses Patient Bloodtype Patient rh Status Prepregnancy Weight lbs Domestic Partner Domestic Partner Phone Father Name Government Affairs Fellow Status 07/07/19 21 1 CLOSED Fetus Data First Name Last Name Admitted to NICU Weight (g) Sex Living Outcome Pediatric Complications Fetus ID Race Codes Race Delivery Type , Spontane ous [id number] Josh Calculation Initial Josh Date Initial Exam [...] Domestic Partner Domestic Partner Phone Father Name Government Affairs Fellow Status 07/07/19 21 1 CLOSED Fetus Data First Name Last Name Admitted to NICU Weight (g) Sex Living Outcome Pediatric Complications Fetus ID Race Codes Race Delivery Type , Spontane ous [id number] Josh Calculation Initial Josh Date Initial Exam [...]
--- OUTSIDE RECORDS SUMMARY | 2024-12-03 14:00 | XMS_ITS | Referral Summary ---
Author Organization [facility] Address [address] [place] [address] Care Team Providers Care Product Mgmt Dev Manager Name Role Phone Trinidad Dial MD Primary Care Provide r Encounters Date Type Department Care Team Description 09/15/2024 6:47 PM CDT - 09/17/2024 11:33 AM CDT Hospital Encounter [address] [place], [place] [id number] Jeff Huber MD Yaganti, Srinivasarao C., MD Cellulitis of right lower extremity (Primary Dx); Cellulitis of right leg; Metabolic acidosis; Bilateral lower extremity edema; Normocytic normochromic anemia; Class 3 severe obesity due to excess calories without serious comorbidity with body mass index (BMI) of 40.0 to 44.9 in adult (HCC) Discharge Disposition: Discharge to home or self care from Last 3 Months Allergies Active Allergy Reactions Criticality Noted Date [...] physician Natanael Pandya MD 30 tablet 08/25/19 Active prenat.vits,stan, [id number] tablet Take 1 tablet by mouth daily [...] drink = 0.6 oz pur e alcohol) [facility] Utilities Answer Date Recorded In the past 12 months has [employer], gas, oil, or water [employer] threatened to shut off services in your [...] often do you attend chur ch or voodoo services? Never 09/16/2024 Do you belong to any clubs o r organizations such as taoist groups, unions, fraternal or athletic groups, or [...] any time in the past 12 m [facility], were you homeless or living in a [place] facility (including now)? No 09/16/2024 Personal Safety Answer Date Recorded Have you ever been in or are you currently in a harmful physical or emotional relationship or is someone making you feel afraid or unsafe? 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 Gender Identity Not on file Sexual Orientation [...] 09/16/2024 12:22 AM CDT Plan of Treatment Not on file Procedures Procedure Name Priority Date/Time Associated Diagnosis [...] CDT 09/17/2024 7:12 AM CDT Narrative [facility] - 09/17/2024 7:13 AM CDT Name of Test->TSH reflex Free T4 us Lina Mckeon MD LAB BLOOD ORDERABLES Final Result [facility] [address] [facility] Department [place] [address] * US Vein Duplex Lower Extremity Bilateral Complete (09/16/2024 2:19 PM CDT) Anatomical Region Laterality Modality Vascular Bilateral Ultrasound 09/16/2024 2:06 PM CDT Narrative 09/17/2024 8:25 AM CDT Lower Extremity Venous Report Patient Name: AMANDA RASHIDChristiano PRASAD : 1995 (29y 8m) Gender: F Study Date: 09/16/2024 02:06:05 PM Licensed Psychiatric Technician: Cindy CHOI Location: [id number] Order Provider: LINA MCKEON Quality: Adequate Ref [...] Gender: F Study Date: 09/16/2024 02:06:05 PM Licensed Psychiatric Technician: Cindy CHOI Location: [place] [address] Order Provider: LINA MCKEON Quality: Adequate Ref [...] Main Grayson MD 09/17/2024 8:24:52 AM CDT Lina Mckeon MD IMG US PROCEDURES Fin al Result * eGFR [...] Mckeon MD LAB BLOOD ORDERABLES Final Result [facility] [address] [facility] Department [place] [address] * (ABNORMAL) Differential, auto (09/16/2024 10:45 AM CDT) Neutrophil abs 6.55(H) 1.50 - 6.50 K/cumm Imm gran abs 0.03 0.00 - 0.10 K/cumm [facility] Lymphocyte abs 1.58 0.80 - 3.30 K/cumm [facility] Monocyte abs 0.62 0.20 - 0.80 K/cumm [facility] Eosinophil abs 0.24 0.00 - 0.50 K/cumm [facility] Basophil abs 0.01 0.00 - 0.10 K/cumm [facility] Neutrophil pct 72.5 % [facility] Comment: Interpretive Data Percent cell count reference ranges are not reported, since discordance with absolute values may lead to misinterpretation of CBC data. Current Interpretive Data was last revised on 2017. Imm gran pct 0.3 % [facility] Comment: Interpretive Data Percent cell count reference ranges are not reported, since discordance with absolute values may lead to misinterpretation of CBC data. Current Interpretive Data was last revised on 2017. Lymphocyte pct 17.5 % [facility] Comment: Interpretive Data Percent cell count reference ranges are not reported, since discordance with absolute values may lead to misinterpretation of CBC data. Current Interpretive Data was last revised on 2017. Monocyte pct 6.9 % [facility] Comment: Interpretive Data Percent cell count reference ranges are not reported, since discordance with absolute values may lead to misinterpretation of CBC data. Current Interpretive Data was last revised on 2017. Eosinophil pct 2.7 % [facility] Comment: Interpretive Data Percent cell count reference ranges are not reported, since discordance with absolute values may lead to misinterpretation of CBC data. Current Interpretive Data was last revised on 2017. Basophil pct 0.1 % [facility] Comment: Interpretive Data Percent cell count reference ranges are not reported, since discordance with absolute values may lead to misinterpretation of CBC data. Current Interpretive Data was last revised on 2017. Blood 09/16/2024 10:4 5 AM CDT 09/16/2024 11:01 AM CDT us Lina Mckeon MD LAB BLOOD ORDERABLES Final Result [facility] [address] [facility] Department [place] [address] * Thyroid Function [place] (09/16/2024 10:45 AM CDT) TSH 2.99 0.30 - 4.20 mcIUnit/mL Blood 09/16/2024 10:4 5 AM CDT 09/16/2024 11:01 AM CDT Lina Mckeon MD LAB BLOOD ORDERABLES Final Result Performing Organization Address City/[facility] Co de Phone Number [facility] [address] [place] [address] * (ABNORMAL) CBC with auto differential (09/16/2024 10:45 AM CDT) WBC 9.03 3.80 - 9.90 K/cumm Hgb 10.7(L) 11.9 - 15.5 g/dL [facility] Hct 32.3(L) 35.6 - 45.5 % [facility] Plt 277 150 - 400 K/cumm [facility] MPV 11.2 9.1 - 12.3 fL [facility] RBC 3.89(L) 3.90 - 5.20 M/cumm [facility] MCV 83.0 81.3 - 96.4 fL [facility] MCH 27.5 27.1 - 33.3 pg [facility] MCHC 33.1 32.3 - 35.7 g/dL [facility] RDW CV 13.6 11.1 - 14.9 % [facility] RDW SD 41.3 35.7 - 48.1 fL [facility] NRBC abs 0.00 0.00 - 0.01 K/cumm [facility] Blood 09/16/2024 10:4 5 AM CDT 09/16/2024 11:01 AM CDT Lina Mckeon MD LAB BLOOD ORDERABLES Final Result Performing Organization Address City/[facility]/ZIP Co de Phone Number [facility] [address] [place] [address] * (ABNORMAL) Basic metabolic panel (09/16/2024 10:45 AM CDT) Pathologist [facility] Sodium 136 135 - 145 mmol/L Potassium, pl 3.5 3.3 - 4.9 mmol/L [facility] Chloride 104 97 - 110 mmol/L [facility] CO2 20(L) 22 - 32 mmol/L [facility] Anion gap 12 2 - 15 mmol/L [facility] BUN 5(L) 6 - 25 mg/dL [facility] Creatinine 0.46(L) 0.60 - 1.10 mg/dL [facility] Glucose 118 70 - 199 mg/dL [facility] Comment: Interpretive Data Fasting glucose >/= 126 [...] 2022. Calcium 8.9 8.5 - 10.3 mg/dL [facility] Blood 09/16/2024 10:4 5 AM CDT 09/16/2024 11:01 AM CDT Lina Mckeon MD LAB BLOOD ORDERABLES Final Result [facility] [address] [facility] Department [place] [address] * Blood culture Blood Peripheral (09/15/2024 11:23 PM CDT) Report Final Report: No growth Comment:Testing performed by : [facility], [address] [facility], [place]., [address] Blood (Peripheral) 09/15/2024 11:23 PM CDT 09/16/2024 1:33 AM CDT Narrative [facility] - 09/20/2024 7:00 AM CDT From a [...] performance characteristics have been verified by the [facility] Microbiology Laboratory. For questions about this culture, contact the Microbiology Laboratory at [phone]. Interpretive data was last revised on 24. Keon VALDEZ LAB MICROBIOLOGY - GENERAL O RDERABLES Final Result Performing Organization Address City/[facility]/ZIP Co de Phone Number [facility] [facility] [place] [place], [place] [phone] * (ABNORMAL) Sepsis Lactate w/ Reflex (09/15/2024 11:16 PM CDT) Sepsis Lactate 0.5(L) 0.7 - 2.0 mmol/L Blood 09/15/2024 11:1 6 PM CDT 09/15/2024 11:20 PM CDT Keon VALDEZ LAB BLOOD ORDERABLES Final R esult Performing Organization Address City/[facility]/ZIP Co de Phone Number [facility] [address] [place] [address] * Blood culture Blood Peripheral (09/15/2024 11:16 PM CDT) Report Final Report: No growth Comment:Testing performed by : [facility], [address] [place]., [address] Blood (Peripheral) 09/15/2024 11:16 PM CDT 09/16/2024 1:33 AM CDT Narrative [facility] - 09/20/2024 7:00 AM CDT Draw Blood [...] performance characteristics have been verified by the [facility] Microbiology Laboratory. For questions about this culture, contact the Microbiology Laboratory at [phone]. Interpretive data was last revised on 24. Keon VALDEZ LAB MICROBIOLOGY - GENERAL O RDERABLES Final Result [facility] [address] [facility] Department [place] [address] * (ABNORMAL) Urinalysis reflex to microscopic and culture Urine (09/15/2024 8:08 PM CDT) Color, ur Yellow Yellow Clarity, ur Cloudy(A) Clear [facility] Specific gravity, ur 1.015 1.003 - 1.030 [facility] pH, urine 6.0 [facility] Comment: Interpretive Data U rine pH is affected by diet, medications, systemic acid-base disturbances, and renal tubular function. pH may affect urinary stone formation. For example, urine pH below 6.0 may help reduce the tendency for calcium phosphate stones and pH greater than 6.0 may reduce the tendency for uric acid stone formation. Source: [facility] Current Interpretive Data was last revised on 2017 Protein, ur ql Negative Negative [facility] Glucose, ur ql Negative Negative [facility] Ketones, ur Negative Negative [facility] Bilirubin, ur Negative Negative [facility] Blood, ur Negative Negative [facility] Urobilinogen, ur <2.0 <2.0 mg/dL [facility] Nitrite, ur Negative Negative [facility] Leukocyte esterase, ur Negative Negative [facility] UA reflex comment Reflex conditions for microscopic UA and culture not met. [facility] Urine 09/15/2024 8:08 PM CDT 09/15/2024 8:11 PM CDT Aidee VALDEZ LAB MICROBIOLOGY - GENERAL ORDERABLES Final Result Performing Organization Address City/[facility]/ZIP Co de Phone Number [address] [place] [address] * Troponin T high-sensitivity 2-hour (09/15/2024 4:04 PM CDT) Trop T hs <6 <=14 ng/L Comment: Interpretive Data For further hscTnT resources including the diagnostic algorithm and an aid in interpretation, copy and paste this link: https://nrl.testcatalog.org/show/hsTrop Current Interpretive Data last revised 2020. Trop T hs delta 0 ng/L [facility] Trop T hs interp Insignificant [facility] Blood 09/15/2024 4:04 PM CDT 09/15/2024 4:07 PM CDT us Conor Morse DO LAB BLOOD ORDERABLES Final Result Performing Organization Address City/[facility]/ZIP Co de Phone Number [address] [place] [address] * Troponin T high-sensitivity series (baseline, 2hr, 4hr, 6hr) (09/15/2024 2:02 PM CDT) Pathologist [facility] Trop T hs <6 <=14 ng/L Comment: Interpretive Data For further hscTnT resources including the diagnostic algorithm and an aid in interpretation, copy and paste this link: https://nrl.testcatalog.org/show/hsTrop Current Interpretive Data last revised 2020. Blood 09/15/2024 2:02 PM CDT 09/15/2024 2:09 PM CDT Jeff Huber MD LAB BLOOD ORDERABLES Final Re sult Performing Organization Address City/[facility]/ZIP Co de Phone Number [address] [place] [address] * Influenza A/B, RSV, and COVID-19 PCR Nasopharyngeal (09/15/2024 2:02 PM CDT) [facility] COVID-19 RNA Negative Negative Influenza A RNA Negative Negative [facility] Influenza B RNA Negative Negative [facility] RSV RNA Negative Negative [facility] Comment: Interpretive data: Testing performed by [facility]. This test is performed using the [employer] Xpert Xpress CoV-2/Flu/RSV plus assay. This is a multiplex, real-time reverse transcriptase PCR assay intended for the qualitative detection of nucleic acid from SARS-CoV-2, influenza A, influenza B, and respiratory syncytial virus. This assay has been cleared by the [place] Food and Drug administration. The performance characteristics have been verified by the [facility]. Results must be considered in the clinical context, and a negative result does not rule out infection. Interpretive Data last revised 2023 Nasopharyngeal 09/15/2024 2: 02 PM CDT 09/15/2024 2:09 PM CDT Narrative [facility] - 09/15/2024 2:48 PM CDT Is the Patient experiencing symptoms consistent with COVID?->Yes Conor Morse DO LAB MICROBIOLOGY - GENERAL ORDERABLES Final Result Performing Organization Address City/[facility]/ZIP Co de Phone Number [facility] [address] Department [place] [address] * eGFR (09/15/2024 2:02 PM CDT) [facility] eGFR >90 >=60 mL/min/1. 73 m2 Comment: [...] LAB BLOOD ORDERABLES Final Re sult [facility] [address] [place] [address] * (ABNORMAL) Differential, auto (09/15/2024 2:02 PM CDT) [facility] Neutrophil abs 7.2(H) 1.5 - 6.5 K/cumm Imm gran abs 0.0 0.0 - 0.1 K/cumm [facility] Lymphocyte abs 1.6 0.8 - 3.3 K/cumm [facility] Monocyte abs 0.6 0.2 - 0.8 K/cumm [facility] Eosinophil abs 0.2 0.0 - 0.5 K/cumm [facility] Basophil abs 0.0 0.0 - 0.1 K/cumm [facility] Neutrophil pct 74.5 % [facility] Comment: Interpretive Data Percent cell count reference ranges are not reported, since discordance with absolute values may lead to misinterpretation of CBC data. Current Interpretive Data was last revised on 2017. Imm gran pct 0.3 % [facility] Comment: Interpretive Data Percent cell count reference ranges are not reported, since discordance with absolute values may lead to misinterpretation of CBC data. Current Interpretive Data was last revised on 2017. Lymphocyte pct 16.9 % [facility] Comment: Interpretive Data Percent cell count reference ranges are not reported, since discordance with absolute values may lead to misinterpretation of CBC data. Current Interpretive Data was last revised on 2017. Monocyte pct 5.9 % [facility] Comment: Interpretive Data Percent cell count reference ranges are not reported, since discordance with absolute values may lead to misinterpretation of CBC data. Current Interpretive Data was last revised on 2017. Eosinophil pct 2.3 % [facility] Comment: Interpretive Data Percent cell count reference ranges are not reported, since discordance with absolute values may lead to misinterpretation of CBC data. Current Interpretive Data was last revised on 2017. Basophil pct 0.1 % [facility] Comment: Interpretive Data Percent cell count reference ranges are not reported, since discordance with absolute values may lead to misinterpretation of CBC data. Current Interpretive Data was last revised on 2017. Blood 09/15/2024 2:02 PM CDT 09/15/2024 2:09 PM CDT us Jeff Huber MD LAB BLOOD ORDERABLES Final Re sult [facility] [address] [facility] [facility] Department [place] [address] * Pro B-type natriuretic peptide (09/15/2024 2:02 [...] Heart J. 2006:27:330-337. 2. Tanya RW, Uriel ADAMES. J. AM Dave Cardiol: Cardiovasc Imag. 2009;2: 216- 225. Interpretive Data Last Revised Date: 2018. Blood 09/15/2024 2:02 PM CDT 09/15/2024 2:09 PM CDT Conor Cavazos MD LAB BLOOD ORDERABLES Final Result [facility] [address] [facility] Department [place] [address] * (ABNORMAL) CBC with auto differential (09/15/2024 2:02 PM CDT) [facility] WBC 9.6 3.8 - 9.9 K/cumm Hgb 11.1(L) 11.9 - 15.5 g/dL [facility] Hct 33.5(L) 35.6 - 45.5 % [facility] Plt 285 150 - 400 K/cumm [facility] MPV 10.1 9.1 - 12.3 fL [facility] RBC 4.05 3.90 - 5.20 M/cumm [facility] MCV 82.7 81.3 - 96.4 fL [facility] MCH 27.4 27.1 - 33.3 pg [facility] MCHC 33.1 32.3 - 35.7 g/dL [facility] RDW CV 13.7 11.1 - 14.9 % [facility] RDW SD 41.2 35.7 - 48.1 fL [facility] NRBC abs 0.00 0.00 - 0.01 K/cumm [facility] Blood Venous blood specimen / Unknown 09/15/2024 2:02 PM CDT 09/15/2024 2:09 PM CDT Jeff Huber MD LAB BLOOD ORDERABLES Final Re sult Performing Organization Address [facility] Co de Phone Number [address] [employer] [place], [place] [phone] * (ABNORMAL) hCG, blood, quantitative (09/15/2024 2:02 PM CDT) [facility] hCG, quant 9,550.0(H ) 0.0 - 5.0 [...] ORDERABLES Final Re sult Performing Organization Address City/[facility]/ZIP Co de Phone Number [address] [place] [address] * (ABNORMAL) Comprehensive metabolic panel (09/15/2024 2:02 PM CDT) [facility] Sodium 137 135 - 145 mmol/L Potassium, pl 3.7 3.3 - 4.9 mmol/L [facility] Chloride 104 97 - 110 mmol/L [facility] CO2 20(L) 22 - 32 mmol/L [facility] Anion gap 13 2 - 15 mmol/L [facility] BUN 3(L) 6 - 25 mg/dL [facility] Creatinine 0.45(L) 0.60 - 1.10 mg/dL [facility] Glucose 126 70 - 199 mg/dL [facility] Comment: Interpretive Data Fasting glucose >/= 126 [...] 2022. Calcium 9.1 8.5 - 10.3 mg/dL [facility] Bilirubin, total 0.2 0.1 - 1.2 mg/dL [facility] Protein, pl 6.6 6.5 - 8.5 g/dL [facility] Albumin 3.8 3.5 - 5.0 g/dL [facility] Alk phos 68 40 - 130 Units/L [facility] ALT 12 7 - 45 Units/L [facility] AST 15 10 - 45 Units/L [facility] Blood 09/15/2024 2:02 PM CDT 09/15/2024 2:09 PM CDT us Jeff Huber MD LAB BLOOD ORDERABLES Final Re sult [facility] [address] [facility] Department [place] [address] * ECG 12 lead (09/15/2024 1:56 PM CDT) Ventricular Rate EKG/Min 89 BPM [facility] Atrial Rate 89 BPM [facility] UT-Interval (MSEC) 136 ms [facility] QRS-Interval (MSEC) 96 ms [facility] QT-Interval (MSEC) 366 ms [facility] QTc 445 ms [facility] P [place] 36 degrees [facility] R [place] 26 degrees [facility] T [place] 11 degrees [facility] Diagnosis Normal sinus rhythm with sinus arrhythmia Normal ECG No previous ECGs available Confirmed by ROE RAMÍREZ M.D. ([id number]) on 09/16/2024 9:10:49 AM [facility] 09/15/2024 1:56 PM CDT 09/16/2024 9:10 AM CDT us Jeff Huber MD ECG ORDERABLES Final Result [facility] from Last 3 Months Insurance [facility] Member Subscriber Plan / Payer (Ef fective 2017-Present) Name:Dodie Rashid Relation to Subscriber:Self Name:Dodie Rashid Payer ID:[id number] (NAIC) Type:MEDICAID RISK OTHER Address: [place] [id number] Advance Directives For more information, please contact: [phone] * Full Code (Latest Code Status on File) Date Activated Date Inactivated Comments 09/16/2024 12:49 AM 09/17/2024 4:19 PM Healthcare Agents on File Name Relationship Healthcare Agent [facility] p [facility] Care Agent Care Teams Product Mgmt Dev Manager Relationship Specialty Start Date End Date Trinidad Dial MD [address] [place] [address] PCP - General Internal Medicine 08/24/24
--- OUTSIDE RECORDS SUMMARY | 2024-12-03 14:00 | XMS_ITS ---
Author Organization [facility] Address [address] [place] [address] Care Team Providers Care Training And Development Specialist Name Role Phone Lo Castro Primary Care Provider [phone] REASON FOR VISIT 6 month f/u Encounters Encounter Location Date Provider Diagnosis [address] [place] [address] 04/14/2024 Lo Castro Plan Of Treatment No Information Progress Notes * Dodie GILBERTDOB:[birth year] (29 yo F)Acc No.[id number]:04/14/2024 UNLOCKED PROGRESS NOTE Patient: Dodie LARSON Provider: LEATHA Merrill, SHRIMP HEADER, CAUSTIC PLANT WORKER-C :1995 A ge:29 Y S ex:Female Date:04/14/2024 Address:[address] [place], [place] [id number] Subjective: * Chief Complaints: * 1 . 6 month f/u. * Medical History: Objective: * Vitals: Assessment: Plan: * Treatment: * * Electronic signature of Devon Castro , [id number] on 12/03/2024 at 01:59 PM CDT Sign off status: Pending * Provider: LEATHA Merrill, SHRIMP HEADER, CAUSTIC PLANT WORKER-C Date: Generated for Destiny crews/Dank/eTransmitting on: 0 12/03/2024 01:59 PM CDT
--- OUTSIDE RECORDS SUMMARY | 2024-12-03 14:01 | XMS_ITS ---
Author Organization [facility] Address [address] [place] [address] Care Team Providers Care Drapery Counselor Name Role Phone Lo Castro Primary Care Provider Sierra Bhatt [phone] REASON FOR VISIT having Selene Blanchard patient Medications Medication SIG (Take, Route, Frequency, Duration) Notes Start Date End Date Status hydrOXYzine Pamoate 25 MG 1 capsule as n eeded Orally One to two times daily for 30 days Active busPIRone HCl 15 MG as directed Orally H jovanna a tablet in the morning AND one full tablet in the evening for 30 days Active Wellbutrin XL 300 MG 1 tablet in the mor kimmy Orally Once a day for 30 days Active traZODone HCl 50 MG 1 tablet at bedtime as needed Orally Once a day for 30 days Active Encounters Encounter Location Date Provider Diagnosis [address] [address] 12/11/2023 Sierra Bhatt Plan Of Treatment No Information Progress Notes * Dodie GILBERTDOB:[birth year] (29 yo F)Acc No.[id number]:12/11/2023 UNLOCKED PROGRESS NOTE Patient: Abelardo ALFREDMARYDodie Provider: Kathy Bhatt, RAKEL, ELEVATOR INSPECTOR, PMHNP-BC :1995 A ge:28 Y S ex:Female Date:12/11/2023 [facility] Pcp:Lo Castro Check In:08:40 AM COLOR ADVISER Subjective: * Chief Complaints: * 1 . [...] * Electronic signature of Tabitha Galloway , [id number] on 12/03/2024 at 02:00 PM CDT Sign off status: Pending * Provider: Kathy Bhatt DNP, ELEVATOR INSPECTOR, PMHNP- Date: 12/11/2023 Generated for Printing/Faxing/eTransmitting on: 12/03/2024 02:00 PM CDT
[2024-12-03 14:15] LABS: Glucose 1 Hour PP 50gm Dose 192 mg/dL
[2024-12-03 14:55] LABS: HIV 1/2 Ab P24 Ag Result Negative (Negative)
[2024-12-03 15:01] LABS: Syphilis IgG/IgM Antibody Non-Reactive (Nonreactive)
[2024-12-03] MEDS: RHO(D) IMMUNE GLOBULIN 300 MCG/2 ML SYRINGE IM (16:18)
== END 2024-12-03 12:38 | disposition home or self-care (01) ==
LOC: ANHLAB 12:37
PROVIDERS: PCP Internal Medicine; Visit Provider Obstetrics & Gynecology
DX: O26.899 Other specified pregnancy related conditions, unspecified trimester (principal); Z67.91 Unspecified blood type, Rh negative; Z3A.00 Weeks of gestation of pregnancy not specified
CPT/HCPCS: 36415; 82947; 85025; 85461; 86593; 86703; 86850; 86900; 86901; 90384; 96372; G0432; J2790

== ENCOUNTER 2024-12-29 21:38 | Observation (INO) | payer OTHER, SELFPAY ==
--- NOTE | 2024-12-29 21:38 | PC.NURSE ---
Pt arrives to unit with right sided abdominal pain 8 out of 10 started at 2129.
--- OUTSIDE RECORDS SUMMARY | 2024-12-29 21:44 | XMS_ITS | Referral Summary ---
Author Organization [facility] Address [address] [place] [address] Care Team Providers Care Teletype Technician Name Role Phone Trinidad Dial MD Primary [...] MD 30 tablet 08/25/19 25 Active prenat.vits,stan, pkh-gwwb-hhhrk tablet Take 1 tablet by mouth daily [...] drink = 0.6 oz pur e alcohol) [facility] Utilities Answer Date Recorded In the past 12 months has th e electric, gas, oil, or water company threatened to shut off services in your [...] often do you attend chur ch or methodist services? Never 09/16/2024 Do you belong to any clubs o r organizations such as hindu groups, unions, fraternal or athletic groups, or [...] any time in the past 12 m [place], were you homeless or living in a retirement (including now)? No 09/16/2024 Personal Safety Answer Date Recorded Have you ever been in or are you currently in a harmful physical or emotional relationship or is someone making you feel afraid or unsafe? 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 Gender Identity Not on file Sexual Orientation [...] Plan of Treatment Not on file Insurance [facility] Advance Directives For more information, please contact: [phone] * Full Code (Latest Code Status on File) Date Activated Date Inactivated Comments 09/16/2024 12:49 AM 09/17/2024 4:19 PM Healthcare Agents on File Name Relationship Healthcare Agent Relationshi p Communication September Lois Mother Health Care Agent Charles Jefferson Friend [facility] Health Care Agent Care Teams Teletype Technician Relationship Specialty Start Date End Date Trinidad Dial MD [address] [facility] [address] [place] [address] PCP - General Internal Medicine 08/24/24
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
--- OUTSIDE RECORDS SUMMARY | 2024-12-29 21:44 | XMS_ITS ---
Author Organization [facility] Address [address] [place] [address] Care Team Providers Care Production Grader Name Role Phone Lo Castro Primary Care Provider Sierra Bhatt [phone] REASON FOR VISIT having Selene Blanchard patient Medications Medication SIG (Take, Route, Frequency, Duration) Notes Start Date End Date Status hydrOXYzine Pamoate 25 MG 1 capsule as n eeded Orally One to two times daily; Duration: 30 days Active busPIRone HCl 15 MG as directed Orally H senior care a tablet in the morning AND one full tablet in the evening; Duration: 30 days Activ e Wellbutrin XL 300 MG 1 tablet in the mor kimmy Orally Once a day; Duration: 30 days Active traZODone HCl 50 MG 1 tablet at bedtime as needed Orally Once a day; Duration: 30 days Active Encounters Encounter Location Date Provider Diagnosis [address] [address] 12/11/2023 Sierra Bhatt Plan Of Treatment No Information Progress Notes * Dodie GILBERTDOB:[birth year] (29 yo F)Acc No.[id number]:12/11/2023 UNLOCKED PROGRESS NOTE Patient: Dodie LARSON Provider: Kathy Bhatt, RAKEL, THERMODYNAMICS PROFESSOR, PMHNP-BC :1995 A ge:28 Y S ex:Female Date:12/11/2023 [facility] Pcp:Lo Castro Check In:08:40 AM 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 [...] * Electronic signature of Tabitha Galloway , [id number] on 12/29/2024 at 09:44 PM CDT Sign off status: Pending * Provider: Kathy Bhatt DNP, THERMODYNAMICS PROFESSOR, PMHNP- Date: 0 12/11/2023 Generated for Printing/Faxing/eTransmitting on: 12/29/2024 09:44 PM CDT
[2024-12-29 22:26] LABS: Add Urine Microscopic? YES; Appearance Urine Cloudy (Clear); Glucose Urine UA 1+ mg/dL (Negative); Leukocyte Esterase Ur Negative LEU/UL (Negative); Nitrate Urine Negative (Negative); Non Pathogenic Casts 0-2; Specific Grav Ur 1.017 (1.001-1.035)
[2024-12-29 23:18] VITALS: TEMP 36.4
[2024-12-29 23:20] VITALS: BP 105/68; PULSE 83; PULSE 84; O2SAT 100
[2024-12-29 23:25] VITALS: PULSE 85; O2SAT 100
--- NOTE | 2024-12-29 23:26 | PC.NURSE ---
Called Dr. Rodriguez, update on pt, right abdominal pain 8 out of 10 at 2130, pain 0 at this time, labs, and tracing. Orders received to discharge pt with instructions to keep next scheduled appointment, call the office to make an appointment if needed before, and when to return to the unit.
[2024-12-29 23:30] VITALS: PULSE 77; O2SAT 100
[2024-12-29 23:31] VITALS: BP 107/70; PULSE 90
--- NOTE | 2024-12-29 23:55 | PC.NURSE ---
Pt discharged with instructions to keep next scheduled appointment, call the office to make an appointment if need before then, and when to return to the unit, pt verbalizes understanding.
--- NOTE | 2024-12-30 04:40 | OBADM ---
This patient, Dodie Rashid, admitted to the OB room OB Post 117 for observation. Patient/family oriented to hospital policies and general routines including ID bracelet, bed and alarms, visiting hours, pain management, procedures, bathroom and other care routines, personal items, smoking policy, room service/diet, and visiting hours. Patient/Family are encouraged to report perceived risks to care and to ask questions if they do not understand what they are told or what they should do.
--- NOTE | 2024-12-30 08:11 | PM.OBTRLD ---
OB - Triage/Final Diagnosis Visit Information Date of evaluation: 12/29/24 Reason for evaluation: threatened labor Comments/Additional reasons for admission: I have assessed the risk for this patient, Dodie Rashid, and determined that she would benefit from observation care. Evaluation Laboratory results: Laboratory Tests 12/29/24 22:14 Urine Color Yellow Urine Appearance Cloudy H Urine pH 6.5 Ur Specific [place] 1.017 Urine Protein 1+ H Urine Glucose (UA) 1+ H Urine Ketones Negative Ur Blood (Man) Negative Urine Nitrate Negative Urine Bilirubin Negative Urine Urobilinogen 1.0 Leukocyte Esterase Rfl Negative Urine RBC 0-2 Urine WBC 6-10 H Ur Squamous Epith Cells Occasional Urine Bacteria 1+ H Urine Casts 0-2 Vital signs: Vital Signs - 24 hr 12/29/24 23:18 12/29/24 23:20 12/29/24 23:20 Temperature 97.5 F L Pulse Rate 83 Blood Pressure 105/68 Pulse Oximetry 100 Oxygen Delivery Room Air 12/29/24 23:25 12/29/24 23:30 12/29/24 23:31 Temperature Pulse Rate 90 Blood Pressure 107/70 Pulse Oximetry 100 100 Oxygen Delivery
== END 2024-12-29 23:55 | disposition home or self-care (01) ==
PROVIDERS: Admitting Provider Student in an Organized Health Care Education/Training Program; PCP Internal Medicine; Visit Provider Student in an Organized Health Care Education/Training Program
DX: O47.03 False labor before 37 completed weeks of gestation, third trimester (principal); Z3A.33 33 weeks gestation of pregnancy
CPT/HCPCS: 81001; 87086; G0378; G0379

== ENCOUNTER 2025-01-08 07:51 | Outpatient (CLI) | payer OTHER, SELFPAY ==
--- OUTSIDE RECORDS SUMMARY | 2025-01-08 07:57 | XMS_ITS ---
Author Organization [facility] Address [address] [place] [address] Care Team Providers Care Grooming Assistant Name Role Phone Lo Castro Primary Care Provider [phone] REASON FOR VISIT 6 month f/u Encounters Encounter Location Date Provider Diagnosis [address] [place] [address] 04/14/2024 Lo Castro Plan Of Treatment No Information Progress Notes * Dodie GILBERTDOB:[birth year] (29 yo F)Acc No.[id number]:04/14/2024 UNLOCKED PROGRESS NOTE Patient: Dodie LARSON Provider: LEATHA Merrill, CONTACT PERSON, MARKETING TRAINEE-C :1995 A ge:29 Y S ex:Female Date:04/14/2024 Address:[address] [place], [place] [id number] Subjective: * Chief Complaints: * 1 . 6 month f/u. * Medical History: Objective: * Vitals: Assessment: Plan: * Treatment: * * Electronic signature of Devon Castro , [id number] on 01/08/2025 at 07:57 AM CDT Sign off status: Pending * Provider: LEATHA Merrill, CONTACT PERSON, MARKETING TRAINEE-C Date: Generated for Destiny crews/Dank/eTransmitting on: 0 01/08/2025 07:57 AM CDT
--- OUTSIDE RECORDS SUMMARY | 2025-01-08 07:57 | XMS_ITS | Patient Health Record ---
Author Organization [facility] Address [address] [place] [address] Care Team Providers Care In Class Special Education Teacher Name Role Phone Lo Castro Primary Care Provider Allergies No Known Allergies Reason For Referral No Information Medications Medication SIG (Take, Route, Frequency, Duration) Notes Start Date End Date Status Wellbutrin XL 150 MG 1 tablet in the mor kimmy Orally Once a day; Duration: 30 days Active busPIRone HCl 15 MG as directed Orally H mcc a tablet in the morning AND one full tablet in the evening; Duration: 30 days Activ e hydrOXYzine Pamoate 25 MG 1 capsule as n eeded Orally One to two times daily; Duration: 30 days Active traZODone HCl 50 MG 1 tablet at bedtime as needed Orally Once a day; Duration: 30 days Active Social History Tobacco Use: [...] Status Risk Notes Problem Generalized anxiety disorder (79634495) Generalized anxiety disorder (F41.1) Active confirmed Problem Major depression (427850684) Major depression (F32.9) Active confirmed continue to eval for bipolar chemistry Problem Methamphetamine abuse (180795957) Methamphetamine abuse (F15.10) Active confirmed reports no use since first week of September 2022 Problem Sleep disturbance (92798789) Sleep disturbance, unspecified (G47.9) Active confirmed Encounters Encounter Location Date Provider Diagnosis [address] [facility] [place] [address] 04/01/[address] [place] [address] [facility] [address] [facility] [place] [address] 04/15/2024 Loalyson Castro Major depression F32 .9 [...] Insured Coverage Start Date Coverage End Date [employer] [address] [place] [address] [id number] Dodie Rashid Self - patient is the insured 3 [employer] [address] [place] [address] [id number] Dodie Rashid Self - patient is the insured 3 Medical (General) History Surgical History Surgery Date(Month/Year) tubing surgery (1 year old) 1994 dilatation and curettage (miscarriage) 2 016 Hospitalization History Reason Date(Month/Year) [facility]- [facility] 2021 - [facility] 2022
--- OUTSIDE RECORDS SUMMARY | 2025-01-08 07:57 | XMS_ITS | Data Portability ---
Author Organization [facility] Address [address] [place] [address] Care Team Providers Care Feed Management Advisor Name Role Phone LORETO RENDON Biochemical Development Engineer Assessment Encounter Date Assessment Date Assessment LastModified by Organization Details LastModified Time 07/07/2020 07/07/2020 Natanael VALVERDE Not available 07/07/2020 15:38:27 Plan of Treatment Reminders Order Date Submit Date Provider Last Modified By Organization Details Last Modified Time Details Appointments None recorded. Lab vitamin D, 25-hydroxy , total, serum 2020 [facility], [address] [place] [address] 2, [place], [address], 08:21:50 HbA1c (hemoglobi n A1c), blood 2020 [facility], [address] [facility], [facility] 2, [place], [address], 08:21:49 TSH, ultra-sens itive, serum 2020 [facility], [address], [place], [address], 08:21:51 CMP, serum or plasma 2020 [facility], [address], [place], [address], 08:21:45 lipid panel, serum 2020 021 [facility], [address], [place], [address], 08:21:47 CBC 2020 [facility], [address], [place], [address], 08:21:46 mthfr (methylene tetrahydro folate reductase) mutation, blood/tiss ue 2020 021 [facility], [address], [place], [address], 09:57:07 CBC w/ auto diff 2020 021 [facility], [address], [place], [address], 13:30:18 CMP, serum or plasma 2020 021 [facility], [facility], [address], [place], [address], 13:30:19 lh + FSH, serum 2020 021 [facility], [facility], [address], [place], [address], 13:30:20 estradiol, serum 2020 021 GLENARIELLE VARGAS, [facility], [address], [place], [address], 13:30:20 TSH, ultra-sens itive, serum 2020 021 [facility], [address] [facility] [address], [address], [place], [address], 1 13:30:19 HbA1c (hemoglobi n A1c), blood 2020 021 [facility], [address] [facility] [address], [address], [place], [address], 1 13:30:19 testostero ne, total, serum 2020 021 [facility], [address] [facility] [address], [address], [place], [address], 1 13:30:20 dhea-sulfa te, serum 2020 021 [facility], [address] [place] [address], [address], [place], [address], 1 13:30:19 CT + NG + TV, DNA, urine/swab 2020 021 [facility], [address] [facility], [address], [place], [address], 1 13:30:21 bacterial vaginosis + vaginitis panel, vaginal 2014 015 [facility], [address], [place], [address], 5 10:34:30 HSV (1+2) DNA, qual, PCR, unspecifie d specimen 2014 015 [facility], [address], [place], [address], 5 10:34:30 test, urine 2014 015 [email or web address] In-Office Order, Internal Use Only DO Not Attach Compendium DO Not Attach Compendium, Do Not Delete/merge, [id number] 5 12:15:52 urinalysis , dipstick 2014 015 [email or web address] In-Office Order, Internal Use Only DO Not Attach Compendium DO Not Attach Compendium, Do Not Delete/merge, [id number] 5 12:15:52 test, urine 2013 014 [email or web address] In-Office Order, Internal Use Only DO Not Attach Compendium DO Not Attach Compendium, Do Not Delete/merge, [id number] 5 13:46:12 urinalysis , dipstick 2013 014 [email or web address] In-Office Order, Internal Use Only DO Not Attach Compendium DO Not Attach Compendium, Do Not Delete/merge, [id number] 5 13:46:12 Referral None recorded. Procedures None recorded. Surgeries None recorded. Imaging XR, hysterosal pingogram 2020 021 [facility] ([facility]), [address] [place], [address], 15:07:05 Medication Orders 28 mg iron-800 mcg tablet 2020 021 [id number], [address] , [place], [place], [id number], 09:57:45 Patient TargetsNo targets recorded. Patient Instructions Encounter Date Encounter Id Patient Instructions Last Modified By Organization Details Last Modified Time 07/07/2020 [id number] Quitting Tobacco : Care Instructions Not available 07/08/2020 09:57:15 03/29/2021 [id number] influenza (flu) vaccine: care instructions Not available [...] DO Not Attach Compendium, Do Not Delete/merge, [id number] 08/12/2014 16:55:49 08/12/19 15 08/12/2014 urina lysis , dipst ick Nitrite negati ve Not Available In-Office Order Internal Use Only DO Not Attach Compendium DO Not Attach Compendium, Do Not Delete/merge, [id number] 08/12/2014 16:55:49 08/12/19 15 08/12/2014 urina lysis , dipst ick Urobilinogen .2 Not Available In-Of fice Order Internal Use Only DO Not Attach Compendium DO Not Attach Compendium, Do Not Delete/merge, [id number] 08/12/2014 16:55:49 08/12/19 15 08/12/2014 urina lysis , dipst ick Protein Negati ve Not Available In-Office Order Internal Use Only DO Not Attach Compendium DO Not Attach Compendium, Do Not Delete/merge, 08/12/2014 16:55:49 08/12/19 15 08/12/2014 urina lysis , dipst ick pH 6.0 Not Available In-Office Order Internal Use Only DO Not Attach Compendium DO Not Attach Compendium, Do Not Delete/merge, [facility] 08/12/2014 16:55:49 08/12/1908/12/2014 urina lysis , dipst ick Blood Modera te Not Available In-Office Order Internal Use Only DO Not Attach Compendium DO Not Attach Compendium, Do Not Delete/merge, [facility] 08/12/2014 16:55:49 08/12/1908/12/2014 urina lysis , dipst ick Specific Mccarley 1.025 Not Available In-Off ice Order Internal Use Only DO Not Attach Compendium DO Not Attach Compendium, Do Not Delete/merge, [facility] 08/12/2014 16:55:49 08/12/1908/12/2014 urina lysis , dipst ick Ketone Negati ve Not Available In-Office Order Internal Use Only DO Not Attach Compendium DO Not Attach Compendium, Do Not Delete/merge, [facility] 08/12/2014 16:55:49 08/12/1908/12/2014 urina lysis , dipst ick Bilirubin Negati ve Not Available In-Office Order Internal Use Only DO Not Attach Compendium DO Not Attach Compendium, Do Not Delete/merge, [facility] 08/12/2014 16:55:49 08/12/1908/12/2014 urina lysis , dipst ick Glucose Negati ve Not Available In-Office Order Internal Use Only DO Not Attach Compendium DO Not Attach Compendium, Do Not Delete/merge, [facility] 08/12/2014 16:55:49 08/12/1908/12/2014 urina lysis , dipst ick Appearance Clear Not Available In-Offi ce Order Internal Use Only DO Not Attach Compendium DO Not Attach Compendium, Do Not Delete/merge, [id number] 08/12/2014 16:55:49 08/12/1908/12/2014 urina lysis , dipst ick Color Yellow Not Available In-Office Order Internal Use Only DO Not Attach Compendium DO Not Attach Compendium, Do Not Delete/merge, [id number] 08/12/2014 16:55:49 08/12/1908/12/2014 pregn gustavo test, urine HCG negati ve Not Available In-Office Order Internal Use Only DO Not Attach Compendium DO Not Attach Compendium, Do Not Delete/merge, [id number] 08/12/2014 16:55:49 05/11/20 14 05/11/2014 urina lysis , dipst ick Leukocytes Negati ve Not Available In-Office Order Internal Use Only DO Not Attach Compendium DO Not Attach Compendium, Do Not Delete/merge, [id number] 05/11/2014 15:49:56 05/11/20 14 05/11/2014 urina lysis , dipst ick Nitrite negati ve Not Available In-Office Order Internal Use Only DO Not Attach Compendium DO Not Attach Compendium, Do Not Delete/merge, [id number] 05/11/2014 15:49:56 05/11/20 14 05/11/2014 urina lysis [...] DO Not Attach Compendium, Do Not Delete/merge, [id number] 05/11/2014 15:49:56 05/11/20 14 05/11/2014 urina lysis , dipst ick Blood Negati ve Not Available In-Office Order Internal Use Only DO Not Attach Compendium DO Not Attach Compendium, Do Not Delete/merge, 05/11/2014 15:49:56 05/11/20 14 05/11/2014 urina lysis , dipst ick Specific Mccarley 1.025 Not Available In-Off ice Order Internal Use Only DO Not Attach Compendium DO Not Attach Compendium, Do Not Delete/merge, 05/11/2014 15:49:56 05/11/20 14 05/11/2014 urina lysis , dipst ick Ketone Negati ve Not Available In-Office Order Internal Use Only DO Not Attach Compendium DO Not Attach Compendium, Do Not Delete/merge, [id number] 05/11/2014 15:49:56 05/11/20 14 05/11/2014 urina lysis [...] Not Delete/merge, 05/11/2014 15:49:56 05/11/20 14 05/11/2014 pregn gustavo test, urine HCG negati ve Not Available In-Office Order Internal Use Only DO Not Attach Compendium DO Not Attach Compendium, Do Not Delete/merge, 05/11/2014 15:49:56 08/12/19 15 08/17/2014 bacte rial vagin osis + vagin itis panel , vagin al atopobium vaginae LOW - 0 score Not Available [facility] ([facility]) [address] [facility], [place], [address], 08/18/2014 14:35:15 08/12/19 15 08/17/2014 bacte rial vagin osis + vagin itis panel , vagin al bvab 2 LOW - 0 score Not Available [facility] ([facility]) [address] [facility], [place], [address], 08/18/2014 14:35:15 08/12/19 15 08/17/2014 bacte rial [...] E CRISTIN CTERI STICS DETER MINED BY [employer]. IT HAS NOT BEEN CLEAR ED OR APPRO FLORA BY THE FOOD AND DRUG ADMIN ISTRA TION. THE FDA HAS DETER MINED THAT SUCH CLEAR ANCE OR APPRO NYDIA IS NOT NECES CHARLEEN. Not Available [facility] ([facility]) [address] [facility], [place], [address], 08/18/2014 14:35:15 08/12/19 15 08/17/2014 bacte rial vagin osis + vagin itis panel , vagin al jasmina albicans, JOHN NEGATI VE negati ve Not Available [facility] ([facility]) [address] [facility], [place], [address], 08/18/2014 14:35:15 08/12/19 15 08/17/2014 bacte rial vagin osis + vagin itis panel , vagin al jasmina glabrata, JOHN NEGATI VE negati ve THIS TEST WAS DEVEL OPED AND ITS PERFO RMANC E CRISTIN CTERI STICS DETER MINED BY [employer]. IT HAS NOT BEEN CLEAR ED OR APPRO FLORA BY THE FOOD AND DRUG ADMIN ISTRA TION. THE FDA HAS DETER MINED THAT SUCH CLEAR ANCE OR APPRO NYDIA IS NOT NECES CHARLEEN. Not Available [facility] ([facility]) [address] [facility], [place], [address], 08/18/2014 14:35:15 08/12/19 15 08/18/2014 bacte rial vagin osis + vagin itis panel , vagin al trich vag by JOHN NEGATI VE negati ve Not Available [facility] ([facility]) [address] [facility], [place], [address], 08/18/2014 14:35:15 08/12/19 15 08/18/2014 bacte rial vagin osis + vagin itis panel , vagin al chlamydia trachomatis, JOHN NEGATI VE negati ve Not Available [facility] ([facility]) [address] [facility], [place], [address], 08/18/2014 14:35:15 08/12/19 15 08/18/2014 bacte rial vagin osis + vagin itis panel , vagin al neisseria gonorrhoeae, JOHN NEGATI VE negati ve Not Available [facility] ([facility]) [address] [facility], [place], [address], 08/18/2014 14:35:15 08/12/19 15 08/15/2014 HSV (1+2) DNA, qual, PCR, unspe cifie d speci men hsv 1 JOHN NEGATI VE negati ve Not Available [facility] ([facility]) [address] [place], [address], 08/18/2014 14:35:16 08/12/19 15 08/15/2014 HSV (1+2) DNA, qual, PCR, unspe cifie d speci men hsv 2 JOHN NEGATI VE negati ve Not Available [facility] ([facility]) [address] [place], [address], 08/18/2014 14:35:16 03/29/20 21 03/30/2021 COMP. METAB OLIC PANEL (14) glucose 85 mg/dL 65-99 Not Available [facility] ([facility]) [address] [facility], [place], [address], 03/30/2021 08:21:45 03/29/2003/30/2021 COMP. METAB OLIC PANEL (14) BUN 8 mg/dL 6-20 Not Available [facility] ([facility]) [address] [facility], [place], [address], 03/30/2021 08:21:45 03/29/20 21 03/30/2021 COMP. METAB OLIC PANEL (14) creatinine 0.57 mg/dL 0.57-1 .00 Not Available [facility] ([facility]) [address] [facility], [place], [address], 03/30/2021 08:21:45 03/29/20 21 03/30/2021 COMP. METAB OLIC PANEL (14) eGFR if nonafricn AM 127 mL/mi n/1.7 3 >59 Not Available [facility] ([facility]) [address] [facility], [place], [address], 03/30/2021 08:21:45 03/29/20 21 03/30/2021 COMP. METAB OLIC PANEL (14) eGFR if [...] SN Task force . Not Available [facility] ([facility]) [address] [facility], [place], [address], 03/30/2021 08:21:45 03/29/20 21 03/30/2021 COMP. METAB OLIC PANEL (14) BUN/creatini ne ratio 14 9-23 Not Available [facility] ([facility]) [address] [facility], [place], [address], 03/30/2021 08:21:45 03/29/2003/30/2021 COMP. METAB OLIC PANEL (14) sodium 139 mmol/ L 134-14 4 Not Available [facility] ([facility]) [address] [place], [address], 03/30/2021 08:21:45 03/29/2003/30/2021 COMP. METAB OLIC PANEL (14) potassium 4.4 mmol/ L 3.5-5. 2 Not Available [facility] ([facility]) [address] [place], [address], 03/30/2021 08:21:45 03/29/2003/30/2021 COMP. METAB OLIC PANEL (14) chloride 103 mmol/ L 96-106 Not Available [facility] ([facility]) [address] [place], [address], 03/30/2021 08:21:45 03/29/2003/30/2021 COMP. METAB OLIC PANEL (14) carbon dioxide, total 22 mmol/ L 20-29 Not Available [facility] ([facility]) [address] [place], [address], 03/30/2021 08:21:45 03/29/2003/30/2021 COMP. METAB OLIC PANEL (14) calcium 9.6 mg/dL 8.7-10 .2 Not Available [facility] ([facility]) [address] [place], [address], 03/30/2021 08:21:45 03/29/2003/30/2021 COMP. METAB OLIC PANEL (14) protein, total 7.2 g/dL 6.0-8. 5 Not Available [facility] ([facility]) [address] [place], [address], 03/30/2021 08:21:45 03/29/2003/30/2021 COMP. METAB OLIC PANEL (14) albumin 4.5 g/dL 3.9-5. 0 Not Available [facility] ([facility]) [address] [facility], [place], [address], 03/30/2021 08:21:45 03/29/20 21 03/30/2021 COMP. METAB OLIC PANEL (14) globulin, total 2.7 g/dL 1.5-4. 5 Not Available [facility] ([facility]) [address] [place], [address], 03/30/2021 08:21:45 03/29/2003/30/2021 COMP. METAB OLIC PANEL (14) A/G ratio 1.7 1.2-2. 2 Not Available [facility] ([facility]) [address] [facility], [place], [address], 03/30/2021 08:21:45 03/29/2003/30/2021 COMP. METAB OLIC PANEL (14) bilirubin, total 0.3 mg/dL 0.0-1. 2 Not Available [facility] ([facility]) [address] [place], [address], 03/30/2021 08:21:45 03/29/2003/30/2021 COMP. METAB OLIC PANEL (14) alkaline phosphatase 147 IU/L 44-121 above high normal Ple ase note refer ence inter nydia vasquez e Not Available [facility] ([facility]) [address] [facility], [place], [address], 03/30/2021 08:21:45 03/29/2003/30/2021 COMP. METAB OLIC PANEL (14) AST (SGOT) 40 IU/L 0-40 Not Available [facility] ([facility]) [address] [facility], [place], [address], 03/30/2021 08:21:45 03/29/2003/30/2021 COMP. METAB OLIC PANEL (14) ALT (SGPT) 71 IU/L 0-32 above high normal Not Available [facility] ([facility]) [address] [facility], [place], [address], 03/30/2021 08:21:45 03/29/2003/30/2021 CBC, NO DIFFE RENTI AL/PL ATELE T WBC 11.3 x10e3 /uL 3.4-10 .8 above high normal Not Available [facility] ([facility]) [address] [facility], [place], [address], 03/30/2021 08:21:46 03/29/2003/30/2021 CBC, NO DIFFE RENTI AL/PL ATELE T RBC 4.97 x10e6 /uL 3.77-5 .28 Not Available [facility] ([facility]) [address] [place], [address], 03/30/2021 08:21:46 03/29/2003/30/2021 CBC, NO DIFFE RENTI AL/PL ATELE T hemoglobin 14.5 g/dL 11.1-1 5.9 Not Available [facility] ([facility]) [address] [place], [address], 03/30/2021 08:21:46 03/29/2003/30/2021 CBC, NO DIFFE RENTI AL/PL ATELE T hematocrit 43.6 % 34.0-4 6.6 Not Available [facility] ([facility]) [address] [place], [address], 03/30/2021 08:21:46 03/29/2003/30/2021 CBC, NO DIFFE RENTI AL/PL ATELE T MCV 88 fL 79-97 Not Available [facility] ([facility]) [address] [place], [address], 03/30/2021 08:21:46 03/29/2003/30/2021 CBC, NO DIFFE RENTI AL/PL ATELE T MCH 29.2 pg 26.6-3 3.0 Not Available [facility] ([facility]) [address] [place], [address], 03/30/2021 08:21:46 03/29/20 21 03/30/2021 CBC, NO DIFFE RENTI AL/PL ATELE T MCHC 33.3 g/dL 31.5-3 5.7 Not Available [facility] ([facility]) [address] [place], [address], 03/30/2021 08:21:46 03/29/2003/30/2021 CBC, NO DIFFE RENTI AL/PL ATELE T RDW 12.2 % 11.7-1 5.4 Not Available [facility] ([facility]) [address] [place], [address], 03/30/2021 08:21:46 03/29/2003/30/2021 CBC, NO DIFFE RENTI AL/PL ATELE T NRBC PORTABLE TRACK CREW CHIEF Not Available [facility] ([facility]) [address] [place], [address], 03/30/2021 08:21:46 03/29/20 21 03/30/2021 LIPID PANEL cholesterol, total 198 mg/dL 100-19 9 Not Available [facility] ([facility]) [address] [place], [address], 03/30/2021 08:21:47 03/29/20 21 03/30/2021 LIPID PANEL triglyceride s 188 mg/dL 0-149 above high normal Not Available [facility] ([facility]) [address] [place], [address], 03/30/2021 08:21:47 03/29/20 21 03/30/2021 LIPID PANEL HDL cholesterol 34 mg/dL >39 below low normal Not Available [facility] ([facility]) [address] [facility] [place], [address], 03/30/2021 08:21:47 03/29/2003/30/2021 LIPID PANEL VLDL cholesterol stan 34 mg/dL 5-40 Not Available [facility] ([facility]) [address] [place], [address], 03/30/2021 08:21:47 03/29/2003/30/2021 LIPID PANEL LDL chol calc ([facility]) 130 mg/dL 0-99 above high normal Not Available [facility] ([facility]) [address] [place], [address], 03/30/2021 08:21:47 03/29/2003/30/2021 LIPID PANEL comment: PORTABLE TRACK CREW CHIEF Not Available [facility] ([facility]) [address] [facility], [place], [address], 03/30/2021 08:21:47 03/29/2003/30/2021 HEMOG LOBIN A1C hemoglobin A1C 6.5 % 4.8-5. 6 above high normal Predi abete s: 5.7 - 6.4 Diabe linda: >6.4 Glyce sandy contr ol for adult s with diabe linda: <7.0 Not Available [facility] ([facility]) [address] [place], [address], 03/30/2021 08:21:48 03/29/2003/30/2021 VITAM IN D, 25-HY [...] Socie ty went on to [facility] er defin e vitam in D insuf ficie ncy as a level betwe en 21 and 29 ng/mL (2). 1. IOM (Inst itute of Medic ine). 2010. Dieta ry refer ence shani es for calci um and D. Hiral german [place]: [facility] Press . 2. Karthik tian MF, Jim maynard [place], Bisch off-F mireille i JANETH, et al. Evalu ation , treat ment, and preve ntion of vitam in D defic iency : an Endoc rine Socie ty clini stan pract ice guide line. JCEM. 2010; 96(7) :1911 -30. Not Available [facility] ([facility]) [address] [facility], [place], [address], 03/30/2021 08:21:50 03/29/2003/30/2021 TSH RFX ON ABNOR MAL TO FREE T4 TSH 3.770 uIU/m L 0.450- 4.500 Not Available [facility] ([facility]) [address] [facility], [place], [address], 03/30/2021 08:21:51 Result Notes None recorded. Problems No Known Problems Procedures Surgical History Date Name Laterality Status Provider Name and Address Organization Details Recorded Time 06/18/19 16 Dilation and curettage completed Asiya Wilson MA [facility] [address] 07/07/2020 10:25:45 06/18/18 95 falloposcopy completed Asiya Wilson MA [facility] [place] [address] 07/07/2020 10:26:58 Imaging Results None recorded. Procedure [...] Updated DateTime 07/07/2020 170.18 cm 43.9 kg/m2 930827.86 g Asiya Wilson MA [place] [facility] 07/07/2020 10:15:29 Date Recorded Body height Body mass index (BMI) Body weight Systolic And Diastolic Provider Name and Address Organization Details Last Updated DateTime 08/12/2014 170.18 cm 33.4 kg/m2 70294.174 81 g 122/84 mm[Hg] Catie Hoang [place] [facility] 08/12/2014 16:09:15 Date Recorded Body height Body mass index (BMI) Body weight Oxygen saturation Oxygen saturation in Arterial blood by Pulse oximetry Heart rate Respiratory rate Body temperature Systolic And Diastolic Provider Name and Address Organization Details Last Updated DateTime 170.18 cm 40.8 kg/m2 322442. 12 g 98 % 98 % 94 /min 16 /min 98.1 [degF] 126/84 mm[Hg] Autumn Corado MA [facility] 09:57:01 Date Recorded Body height Body mass index (BMI) Body weight Systolic And Diastolic Provider Name and Address Organization Details Last Updated DateTime 05/11/2014 170.18 cm 32.3 kg/m2 06865.028 22 g 104/62 mm[Hg] Catie Hoang MA [facility] [address] [address] 05/11/2014 15:38:03 Social History Question Answer Notes LastModified by Organizat ion Details LastModified Time Tobacco Smoking Status Current Every Day Smoker Catie Hoang MA null, [facility] 05/11/2014 15:48:47 Do You Have An [...] anxious, or unable to sleep at night)? [id number] Information not available 03/29/2021 Family History Relationship Description Onset Age of this Age Resolved Age Notes LastModified by Organization Details LastModified Time Maternal Grandfather Diabetes mellitus [email or web address] Not available 2020 10:28:26 Father Diabetes mellitus [email or web address] Not available 2020 10:28:26 Mother Cerebrovascu lar accident Mother had 2 stroke s. [email or web address] Not available 07/07/2020 10:30:03 Medical History Condition Response Diabetes N Anxiety Disorder N High Blood Pressure Y Atrial Fibrillation N Seizures/Epilepsy N Acid Reflux (GERD) Y Cancer N Kidney or Bladder Problems Y Stroke N Thyroid Problems N Asthma N Blood Clots N Allergies N Depression Y ADHD N Anemia N High Cholesterol N Hepatitis N Liver Disease N Heart Attack (NH) N Heart Failure N Gynecological History Statement/Question [...] virus, quadrivalent, preservative completed Autumn Corado MA [facility] 03/29/2021 10:40:33 Past Encounters Encounter ID Performer Location Encounter Start Date Encounter Closed Date Diagnosis/Indication Diagnosis SNOMED-CT Code Diagnosis ICD10 Code Diagnosis Note [id number] MD Zenon Zhong (PLATFORM ARCHITECT) [address] [place] [phone] 05/11/2014 14:50:42 05/11/2014 16:24:28 Gynecologic examination [id number] MD Zenon Zhong (PLATFORM ARCHITECT) [address] [place] [id number] 08/12/2014 15:51:11 08/12/2014 16:46:40 At increased risk of sexually transmitted infection [id number] [facility] [address] [place] [id number] 07/07/2020 08:57:08 07/09/2020 10:57:47 Reproductive care management 906050080 Z31.9 25yo F presents via phone for [...] pap. Past pregn gustavo history of miscarriage 195150043 Z87.59 Smoker 42160280 F17.223 [id number] MD Evon Randall (Adult Med) [address] [place] [address] 03/29/2021 09:49:22 04/01/2021 10:43:27 Adult health examination 243249670 Z00.01 Encouraged routine DESKTOP MANAGER, vision, dental exams, well balanced diet. Administra tion of influenza vaccine 47156570 Z23 Obesity 518163147 E66.9 advised low fat, low cholestero l diet, regular exercise and weight reduction. Family his tory of premature coronary heart disease 179600968 Z82.49 father passed in 40's, hx of NH and pacemaker, Tobacco user 209921997 Z 72.0 Smoking cessation encouraged . Gastroesop hageal reflux disease without esophagitis 153183348 K21.9 infrequent ; diet advised Health Concerns Section Related Observation LastModified by Organization Detai ls LastModified Time None Recorded Concern Status LastModified by Organization Details LastModified Time None Recorded Advance Directives Directive N: Payers Insurance Date Sequence Insurance Name Policy Number Policy Dyson Covered Member ID Dyson Member ID Guarantor Name 03/28/2021 1 [facility] ([facility] [id number] 07/07/2020 1 [facility] (MEDICAID HMO) [id number] [facility] [id number] [facility] 07/07/2020 1 [place] [facility] [facility] [id number] [facility] Notes Date Note Type Note Provider Name and Address Organization Details Recorded Time 07/07/2020 text/html ROS as noted in the HPI This is a 25 year old female with a history of chlamydia [...] remember the last time she had an PLATFORM ARCHITECT or doctor visit. Partner does not have any children. She denies abnormal discharge, pelvic pain, vaginal symptoms, fevers, chills, n/v, urinary symptoms, changes in BMs. COURTNEY ROUSE Attn: [address]ing[address] [place], [address], [facility] 07/08/2020 13:26:58 03/29/2021 text/html Here to est care, has not had a pcp in a very long time,trying to conceive but irreg. periods, using juan to track, last year went 6 mos with out onehx of two miscarriages, Xiao Kaminski APN, GUIDE FOREIGN TOUR-C Attn: Accounting[address] [place], [address], [facility] 03/29/2021 14:05:50 OBGyn Episode Ob Episode Information Episode Created Date Number of Fetuses Patient Bloodtype Patient rh Status Prepregnancy Weight lbs Domestic Partner Domestic Partner Phone Father Name Chemical Operations Specialist Status 07/07/19 21 1 CLOSED Fetus Data First Name Last Name Admitted to NICU Weight (g) Sex Living Outcome Pediatric Complications Fetus ID Race Codes Race Delivery Type , Spontane ous [id number] Josh Calculation Initial Josh Date Initial Exam [...] Domestic Partner Domestic Partner Phone Father Name Chemical Operations Specialist Status 07/07/19 21 1 CLOSED Fetus Data First Name Last Name Admitted to NICU Weight (g) Sex Living Outcome Pediatric Complications Fetus ID Race Codes Race Delivery Type , Spontane ous [id number] Josh Calculation Initial Josh Date Initial Exam [...]
--- OUTSIDE RECORDS SUMMARY | 2025-01-08 07:58 | XMS_ITS | Clinical Summary ---
Author Organization [facility] Address [address] [place] [address] Care Team Providers Care Coremaker Experimental Name Role Phone Trinidad Dial MD Primary [...] MD 30 tablet 08/25/19 25 Active prenat.vits,stan, lni-dvyf-tcuek tablet Take 1 tablet by mouth daily [...] drink = 0.6 oz pur e alcohol) [facility] Utilities Answer Date Recorded In the past [...] often do you attend chur ch or hindu services? Never 09/16/2024 Do you belong to any clubs o r organizations such as yarsanism groups, unions, fraternal or athletic groups, or [...] any time in the past 12 m [facility], were you homeless or living in a detention (including now)? No 09/16/2024 Personal Safety Answer Date Recorded Have you ever been in or are you currently in a harmful physical or emotional relationship or is someone making you feel afraid or unsafe? 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 Gender Identity Not on file Sexual Orientation [...] Screening Completed 1995 , 1995, 1994 Insurance [facility] Member Subscriber Plan / Payer (Ef fective 2017-Present) Name:Dodie Rashid Relation to Subscriber:Self Name:Dodie Rashid Payer ID:[id number] (NAIC) Type:MEDICAID RISK OTHER Address: [place] [id number] [facility] Advance Directives For more information, please contact: [phone] * Full Code (Latest Code Status on File) Date Activated Date Inactivated Comments 09/16/2024 12:49 AM 09/17/2024 4:19 PM Healthcare Agents on File Name Relationship Healthcare Agent Nakiahi p Communication September Lois Mother Health Care Agent Charles Jefferson Friend [facility] Health Care Agent Care Teams Coremaker Experimental Relationship Specialty Start Date End Date Trinidad Dial MD [address] [place] [address] PCP - General Internal Medicine 08/24/24
--- OUTSIDE RECORDS SUMMARY | 2025-01-08 07:58 | XMS_ITS ---
Author Organization [facility] Address [address] [place] [address] Care Team Providers Care Automatic Coin Machine Mechanic Name Role Phone Lo Castro Primary Care Provider Sierra Bhatt [phone] REASON FOR VISIT having Selene Blanchard patient Medications Medication SIG (Take, Route, Frequency, Duration) Notes Start Date End Date Status hydrOXYzine Pamoate 25 MG 1 capsule as n eeded Orally One to two times daily; Duration: 30 days Active busPIRone HCl 15 MG as directed Orally H longterm a tablet in the morning AND one full tablet in the evening; Duration: 30 days Activ e Wellbutrin XL 300 MG 1 tablet in the mor kimmy Orally Once a day; Duration: 30 days Active traZODone HCl 50 MG 1 tablet at bedtime as needed Orally Once a day; Duration: 30 days Active Encounters Encounter Location Date Provider Diagnosis [address] [address] 12/11/2023 Sierra Bhatt Plan Of Treatment No Information Progress Notes * Dodie GILBERTDOB:[birth year] (29 yo F)Acc No.[id number]:12/11/2023 UNLOCKED PROGRESS NOTE Patient: Dodie LARSON Provider: Kathy Bhatt, RAKEL, CONE CHOCOLATE DIPPER, PMHNP-BC :1995 A ge:28 Y S ex:Female Date:12/11/2023 [facility] [facility] Pcp:Lo Castro Check In:08:40 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 [...] * Electronic signature of Tabitha Galloway , [id number] on 01/08/2025 at 07:57 AM CDT Sign off status: Pending * Provider: Kathy Bhatt DNP, CONE CHOCOLATE DIPPER, PMHNP- Date: 0 12/11/2023 Generated for Printing/Faxing/eTransmitting on: 01/08/2025 07:57 AM CDT
--- OUTSIDE RECORDS SUMMARY | 2025-01-08 07:58 | XMS_ITS | Referral Summary ---
Author Organization [facility] Address [address] [place] [address] Care Team Providers Care Care Technician Name Role Phone Trinidad Dial MD [...] MD 30 tablet 08/25/19 25 Active prenat.vits,stan, fek-gljf-tborg tablet Take 1 tablet by mouth daily [...] drink = 0.6 oz pur e alcohol) [facility] Utilities Answer Date Recorded In [...] often do you attend chur ch or synagogue services? Never 09/16/2024 Do you belong to any clubs o r organizations such as catholic groups, unions, fraternal or athletic groups, or [...] any time in the past 12 m [facility], were you homeless or living in a residential (including now)? No 09/16/2024 Personal Safety Answer Date Recorded Have you ever been in or are you currently in a harmful physical or emotional relationship or is someone making you feel afraid or unsafe? 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 Advance Directives For more information, please contact: [phone] * Full Code (Latest Code Status on File) Date Activated Date Inactivated Comments 09/16/2024 12:49 AM 09/17/2024 4:19 PM Healthcare Agents on File Name Relationship Healthcare Agent Relationshi p Communication September Lois Mother Health Care Agent Charles Jefferson Friend [facility] Health Care Agent Care Teams Care Technician Relationship Specialty Start Date End Date Trinidad Dial MD [address] [facility] [address] [place] [address] PCP - General Internal Medicine 08/24/24
[2025-01-08 08:23] LABS: Glucose Fasting Gestational 135 mg/dL (>/=95)
[2025-01-08 09:16] LABS: Hemoglobin A1C 6.4 % (<5.7)
[2025-01-08 10:26] LABS: Glucose 1 Hour Gest 242 mg/dL (>/=180)
[2025-01-08 11:01] LABS: Glucose 2 Hour Gest 268 mg/dL (>/= 155)
[2025-01-08 12:02] LABS: Glucose 3 Hour Gest 227 mg/dL (>/=140)
== END 2025-01-08 07:52 | disposition home or self-care (01) ==
LOC: ANHLAB 07:54
PROVIDERS: PCP Internal Medicine; Visit Provider Obstetrics & Gynecology
DX: R73.09 Other abnormal glucose (principal)
CPT/HCPCS: 36415; 82951; 82952; 83036

== ENCOUNTER 2025-01-26 14:24 | Outpatient (RCR) | payer OTHER, SELFPAY ==
[2025-01-12 15:08] VITALS: BP 128/82; PULSE 93
[2025-01-15 10:56] VITALS: BP 116/77; PULSE 93
--- NOTE | 2025-01-19 13:59 | PC.NURSE ---
1300--[facility] 01/23
[2025-01-23 10:15] VITALS: BP 131/75; PULSE 84
--- NOTE | ~2025-01-26 | US_ITS ---
EXAMINATION: US OB BPP wo non-stress DATE: 01/19/2025 13:16 CDT INDICATION: Gestational diabetes mellitus TECHNIQUE: Real-time transabdominal obstetric ultrasound. FINDINGS: 01/12/2025 There is a single living fetus in vertex presentation. The placenta is anterior without placenta pre via. NAVJOT is normal measuring 9.7 cm. cardiac activity and movement is noted with a heart rate of 145 beats per minute. Biophysical profile: breathin of 2 movement: 2 of 2 tone: 2 of 2 Amniotic flud pocket: 2 of 2 Total score: 8 of 8 IMPRESSION: 1. Single living intrauterine in vertex presentation. 2: Total biophysical profile score of 01/23. Reviewed, dictated and finalized at location A.
--- NOTE | ~2025-01-26 | US_ITS ---
EXAMINATION: US OB BPP wo non-stress DATE: 01/12/2025 15:52 CDT INDICATION: Gestational diabetes TECHNIQUE: Real-time transabdominal obstetric ultrasound. FINDINGS: No prior studies for comparison. There is a single living fetus in vertex presentation. The placenta is anterior without placenta pre via. cardiac activity and movement is noted with a heart rate of 148 beats per minute. Biophysical profile: breathin of 2 movement: 2 of 2 tone: 2 of 2 Amniotic flud pocket: 2 of 2 Total score: 8 of 8 IMPRESSION: 1. Single living intrauterine in vertex presentation. 2: Total biophysical profile score of 8/8. Reviewed, dictated and finalized at location B.
--- NOTE | ~2025-01-26 | US_ITS ---
EXAMINATION: US OB limited w BPP DATE: 01/26/2025 15:40 INDICATION: Maternal gestational diabetes during third trimester . Assess for amniotic fluid index. TECHNIQUE: Real-time pelvic ultrasound was performed. The interpreting radiologist was not present fo r the study. COMPARISON: None. FINDINGS: There is a single living fetus in vertex presentation. The placenta is anterior. heart rate is 157 beats per minute (bpm). Normal amniotic fluid index of 11.7 cm (5th%-95%: 7.7-24.9 cm at 36 week s estimated gestational age) Biophysical profile performed by the technologist: breathing (30 sec sustained breathing in 30 minutes): 2 out of 2 movement (3 gross body movements in 30 minutes): 2 out of 2 tone (one episode of hreseoa-kpiahkurt-rbpluay limb movement): 2 out of 2 Amniotic fluid pocket (2 cm): 2 out of 2 Total score: 8 out of 8 IMPRESSION: 1. Single living fetus in vertex presentation with heart rate of 157 bpm. 2. Biophysical profile 8 out of 8. 3. Normal amniotic fluid index of 11.7 cm Reviewed, dictated and finalized at location A.
[2025-01-26 14:53] VITALS: BP 142/82; PULSE 89
== END 2025-02-12 13:38 | disposition other institution (70) ==
LOC: ANHOBOP 14:24
PROVIDERS: PCP Internal Medicine; Visit Provider Student in an Organized Health Care Education/Training Program
DX: O24.419 Gestational diabetes mellitus in pregnancy, unspecified control (principal); Z3A.34 34 weeks gestation of pregnancy; Z3A.35 35 weeks gestation of pregnancy; Z3A.36 36 weeks gestation of pregnancy
CPT/HCPCS: 59025; 76815; 76819

== ENCOUNTER 2025-01-27 05:12 | Inpatient (IN) | payer OTHER, SELFPAY ==
[2025-01-27] VITALS (184 sets, daily range): BP systolic 98–151; BP diastolic 54–122; PULSE 61–105; TEMP 36.1–37.2; O2SAT 97–100; BMI 43.2
--- OUTSIDE RECORDS SUMMARY | 2025-01-27 05:13 | XMS_ITS | Patient Health Record ---
Author Organization [facility] Address [address] [place] [address] Care Team Providers Care County Commissioner Name Role Phone Lo Castro Primary Care Provider [phone] Allergies No Known Allergies Reason For Referral No Information Medications Medication SIG (Take, Route, Frequency, Duration) Notes Start Date End Date Status Wellbutrin XL 150 MG 1 tablet in the mor kimmy Orally Once a day; Duration: 30 days Active busPIRone HCl 15 MG as directed Orally H half-way a tablet in the morning AND one [...] Status Risk Notes Problem Generalized anxiety disorder (31256755) Generalized anxiety disorder (F41.1) Active confirmed Problem Major depression (966739349) Major depression (F32.9) Active confirmed continue to eval for bipolar chemistry Problem Methamphetamine abuse (994747051) Methamphetamine abuse (F15.10) Active confirmed reports no use since first week of September 2022 Problem Sleep disturbance (56192771) Sleep disturbance, unspecified (G47.9) Active confirmed Encounters Encounter Location Date Provider Diagnosis [facility] [address] [place] [address] 04/15/2024 Lo Castro Major depression F32 .9 ; Sleep disturbance, unspecified G47.9 ; Generalized anxiety disorder F41.1 and Methamphetamine abuse F15.[address] [place] [address] 04/01/2024 Lo Castro [address] [place] [address] 06/24/2024 Lo Castro Assessments Encounter Date Diagnosis (ICD [...] Insured Coverage Start Date Coverage End Date ReliSen [address] [place] [address] [id number] Dodie Rashid Self - patient is the insured [employer] [address] [place] [address] [id number] Dodie Rashid Self - patient is the insured 3 Medical (General) History Surgical History Surgery Date(Month/Year) tubing surgery (1 year old) 1994 dilatation and curettage (miscarriage) 2 016 Hospitalization History Reason Date(Month/Year) [facility]- [facility] 2021 - [facility] 2022
--- OUTSIDE RECORDS SUMMARY | 2025-01-27 05:13 | XMS_ITS ---
Author Organization [facility] Address [address] [place] [address] Care Team Providers Care Tax Technician Name Role Phone Lo Castro Primary Care Provider Sierra Bhatt [phone] REASON FOR VISIT having Selene Blanchard patient [...] Active Encounters Encounter Location Date Provider Diagnosis [address] [address] 12/11/2023 Sierra Bhatt Plan Of Treatment No Information Progress Notes * Dodie GILBERTDOB:[birth year] (30 yo F)Acc No.[id number]:12/11/2023 UNLOCKED PROGRESS NOTE Patient: Dodie LARSON Provider: Kathy Bhatt, RAKEL, DRUG ABUSE WORKER, PMHNP-BC :1995 A ge:28 Y S ex:Female Date:12/11/2023 [address] [place] [facility] Pcp:Lo Castro Check In:08:40 AM 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 [...] * Electronic signature of Tabitha Galloway , [id number] on 01/27/2025 at 05:12 AM CDT Sign off status: Pending * Provider: Kathy Bhatt DNP, DRUG ABUSE WORKER, PMHNP- Date: 12/11/2023 Generated for Printing/Faxing/eTransmitting on: 01/27/2025 05:12 AM CDT
--- OUTSIDE RECORDS SUMMARY | 2025-01-27 05:13 | XMS_ITS | Clinical Summary ---
Author Organization [facility] Address [address] [place] [address] Care Team Providers Care Mapping Specialist Name Role Phone Trinidad Dial MD Primary [...] MD 30 tablet 08/25/19 25 Active prenat.vits,stan, sqi-eoxg-qkgou tablet Take 1 tablet by mouth daily [...] drink = 0.6 oz pur e alcohol) [facility] Utilities Answer Date Recorded In the past 12 months has th e electric, gas, oil, or water company threatened to shut off services in your home? No 09/16/2024 Social Connection and Isolation Panel Answer Date Recorded In a typical week, how many times do you talk on the phone with family, friends, or neighbors? Three times a week 09/16/2024 How often do you get togethe r with friends or relatives? Three times a week 09/16/2024 How often do you attend chur ch or sabianism services? Never 09/16/2024 Do you belong to any clubs o r organizations such as buddhism groups, unions, fraternal or athletic groups, or [...] any time in the past 12 m [facility], were you homeless or living in a chcf (including now)? No 09/16/2024 Personal Safety Answer Date Recorded Have you ever been in or are you currently in a harmful physical or emotional relationship or is someone making you feel afraid or unsafe? 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 Gender Identity Not on file Sexual Orientation [...] Screening Completed 1994 , 1994, 1994 Insurance [facility] Advance Directives For more information, please contact: [phone] * Full Code (Latest Code Status on File) Date Activated Date Inactivated Comments 09/16/2024 12:49 AM 09/17/2024 4:19 PM Healthcare Agents on File Name Relationship Healthcare Agent Naikavt p Communication September Lois Mother Health Care Agent Charles Jefferson Friend [facility] Health Care Agent Care Teams Mapping Specialist Relationship Specialty Start Date End Date Trinidad Dial MD [address] [place] [address] PCP - General Internal Medicine 08/24/24
--- OUTSIDE RECORDS SUMMARY | 2025-01-27 05:13 | XMS_ITS ---
Author Organization [facility] Address [address] [place] [address] Care Team Providers Care Curriculum And Instruction Director Name Role Phone Lo Castro Primary Care Provider REASON FOR VISIT 6 month f/u Encounters Encounter Location Date Provider Diagnosis [address] [place] [address] 04/14/2024 Lo Castro Plan Of Treatment No Information Progress Notes * Dodie GILBERTDOB:[birth year] (30 yo F)Acc No.[id number]:04/14/2024 UNLOCKED PROGRESS NOTE Patient: Dodie LARSON Provider: LEATHA Merrill, SQL REPORT WRITER, CREASING MACHINE OPERATOR-C :1995 A ge:29 Y S ex:Female Date:04/14/2024 Address:[address] [place], [place] [id number] Subjective: * Chief Complaints: * 1 . 6 month f/u. * Medical History: Objective: * Vitals: Assessment: Plan: * Treatment: * * Electronic signature of Devon Castro , [id number] on 01/27/2025 at 05:12 AM CDT Sign off status: Pending * Provider: LEATHA Merrill, SQL REPORT WRITER, CREASING MACHINE OPERATOR-C Date: Generated for Destiny crews/Dank/Janiitting on: 0 01/27/2025 05:12 AM CDT
[2025-01-27 05:45] LABS: Hematocrit 34.0 % (37.0-47.0); Hemoglobin 11.0 g/dL (12.0-15.0); Immature Granulocyte Percent A 0.4 % (0-0.5); Lymphocytes Absolute Auto 2.59 K/mm3 (0.9-3.2); Mean Corpuscular HGB Conc 32.4 g/dl (32-36); Mean Corpuscular Hemoglobin 25.6 pg (26-34); Mean Corpuscular Volume 79.3 fl (80-100); Nucleated Red Blood Cells Absolute Auto 0.000 K/mm3 (0.0-0.012); Nucleated Red Blood Cells Perc 0.0 % (0.0-0.2); Platelet Count Result 254 k/mm3 (150-375); Red Blood Count 4.29 M/mm3 (4.2-5.4); White Blood Count 11.4 K/mm3 (4.5-10.0)
--- OUTSIDE RECORDS SUMMARY | 2025-01-27 05:45 | XMS_ITS | Clinical Summary ---
Author Organization [facility] Address [address] [place] [address] Care Team Providers Care Technical Writer Name Role Phone Trinidad Dial MD Primary [...] MD 30 tablet 08/25/19 25 Active prenat.vits,stan, tvj-peap-namuj tablet Take 1 tablet by mouth daily [...] drink = 0.6 oz pur e alcohol) [facility] Utilities Answer Date Recorded In [...] often do you attend chur ch or yazidi services? Never 09/16/2024 Do you belong to any clubs o r organizations such as roman catholic groups, unions, fraternal or athletic groups, [...] any time in the past [address] [facility], were you homeless or living in a intermediate (including now)? No 09/16/2024 Personal Safety Answer Date Recorded Have you ever been in or are you currently in a harmful physical or emotional relationship or is someone making you feel afraid or unsafe? Yes 09/16/2024 Estimated Date of Delivery Comme nts Yes 02/17/2025 Sex and Gender Information Value Date Recorded Sex Assigned at Not on file Legal Sex Female 10:53 PM A&P MECHANIC Gender Identity Not on file Sexual Orientation [...] Screening Completed 1994 , 1994, 1994 Insurance [facility] Advance Directives For more information, please contact: [phone] * Full Code (Latest Code Status on File) Date Activated Date Inactivated Comments 09/16/2024 12:49 AM 09/17/2024 4:19 PM Healthcare Agents on File Name Relationship Healthcare Agent Nakiawa p Communication September Lois Mother Health Care Agent Charles Jefferson Friend First Alternate Health Care Agent Care Teams Technical Writer Relationship Specialty Start Date End Date Trinidad Dial MD [address] [place] [address] PCP - General Internal Medicine 08/24/24
--- NOTE | 2025-01-27 05:48 | LDADM ---
This patient, Dodie Rashid, was admitted to Labor/Delivery/Recovery 109 on 01/27/25 at 05:12. Plans for labor, pain management and were discussed with patient. Patient/family oriented to hospital policies and general routines including ID bracelet, bed and alarms, visiting hours, pain management, procedures, bathroom and other care routines, personal items, smoking policy, room service/diet and guest tray routines, security routines, and visiting hours. Patient/Family are encouraged to report perceived risks to care and to ask questions if they do not understand what they are told or what they should do. See OBIX for further documentation.
[2025-01-27 06:02] LABS: Cannabinoid Screen Urine Negative (Negative)
[2025-01-27 06:09] LABS: Alanine Aminotransferase 15 U/L (6-35); Albumin Level 3.3 g/dL (3.5-5.1); Alkaline Phosphatase 145 U/L (38-126); Anion Gap 9 mmol/L (4-12); Aspartate Amino Transferase 21 U/L (14-36); Bilirubin,Total 0.2 mg/dL (0.2-1.3); Blood Urea Nitrogen 5 mg/dL (7-17); Calcium 9.3 mg/dL (8.4-10.2); Carbon Dioxide 17 mmol/L (22-30); Chloride 109 mmol/L (98-107); Estimated CRCL calculation 190 ml/min; Estimated Glomerular Filt Rate > 60; Glucose 146 mg/dL (65-110); Potassium 4.0 mmol/L (3.4-5.0); Sodium 135 mmol/L (137-145); Total Protein 6.4 g/dL (6.3-8.2)
--- NOTE | 2025-01-27 06:10 | PC.NURSE ---
Upon med reconciliation, Pt stated that she was told to take insulin but unsure of type of insulin. Pt stated that she would have someone bring in her insulin to verify type. Pt states she has only taken 3 doses of insulin this entire . pt states she was prescribed 8 units in morning and at night.
--- NOTE | 2025-01-27 06:18 | WPDANESEPP ---
Anes - Eval Pre Procedure Procedure: Labor epidural Date/Time: 01/27/25 06:18 Surgeon: Jennifer Preop Diagnosis: Abdominal pain with contractions Pre Op Diagnosis: IOL Patient Data Age: 30 Gender: F Height: 1.7 m Weight: 125.09 kg Last Vital Signs Pulse Ox 100 01/27/25 06:13 O2 Del Method Room Air 01/27/25 05:48 Allergies Allergy/AdvReac Type Severity Reaction Status Date / Time No Known Allergies Allergy Verified 01/27/25 06:08 Home Medications ?Medication ?Instructions ?Recorded ?Confirmed ?Type vits no.126-ferrous fum 1 tablet PO DAILY 07/17/24 01/26/25 History 28 mg iron-folic acid 800 mcg tablet (Classic ) diclofenac potassium 25 mg capsule 25 mg PO BID 12/15/24 01/26/25 History Laboratory Tests 01/27/25 01/27/25 01/27/25 05:15 05:16 05:37 WBC 11.4 H K/mm3 (4.5-10.0) RBC 4.29 M/mm3 (4.2-5.4) Hgb 11.0 L g/dL (12.0-15.0) Hct 34.0 L % (37.0-47.0) MCV 79.3 L fl (80-100) MCH 25.6 L pg (26-34) MCHC 32.4 g/dl (32-36) RDW 14.6 H % (11.5-14.5) Plt Count 254 k/mm3 (150-375) MPV 11.0 H fl (7.4-10.4) Immature Gran % (Auto) 0.4 % (0-0.5) Neut % (Auto) 68.2 % (45.5-73.1) Lymph % (Auto) 22.7 % (18.3-44.2) [place] % (Auto) 7.0 % (2.6-8.5) Eos % (Auto) 1.3 % (0-4.4) Baso % (Auto) 0.4 % (0.2-1.2) Lymph # (Auto) 2.59 K/mm3 (0.9-3.2) [place] # (Auto) 0.8 H K/mm3 (0.1-0.6) Eos # (Auto) 0.2 K/mm3 (0-0.3) Baso # (Auto) 0.1 K/mm3 (0.0-0.1) Abs Immat Gran (auto) 0.05 H K/mm3 (0.00-0.031) Absolute Neuts (auto) 7.8 H K/mm3 (1.3-6.7) Absolute Nucleated RBC 0.000 K/mm3 (0.0-0.012) Nucleated RBC % 0.0 % (0.0-0.2) Sodium 135 L mmol/L (137-145) Potassium 4.0 mmol/L (3.4-5.0) Chloride 109 H mmol/L (98-107) Carbon Dioxide 17 L mmol/L (22-30) Anion Gap 9 mmol/L (4-12) BUN 5 L mg/dL (7-17) Creatinine 0.49 L mg/dL (0.7-1.0) Estim Creat Clear Calc 190 ml/min Estimated GFR > 60 (59 - ) Glucose 146 H mg/dL (65-110) Calcium 9.3 mg/dL (8.4-10.2) Total Bilirubin 0.2 mg/dL (0.2-1.3) AST 21 U/L (14-36) ALT 15 U/L (6-35) Alkaline Phosphatase 145 H U/L (38-126) Total Protein 6.4 g/dL (6.3-8.2) Albumin 3.3 L g/dL (3.5-5.1) Urine Opiates Screen Negative (Negative) Urine Methadone Screen Negative (Negative) Ur Barbiturates Screen Negative (Negative) Ur Phencyclidine Scrn Negative (Negative) Ur Amphetamine Screen Negative (Negative) U Benzodiazepines Scrn Negative (Negative) Urine Cocaine Screen Negative (Negative) U Cannabinoids Screen Negative (Negative) Blood Type A Negative Antibody Screen Pending : gestational age HCG: positive Patient hx anesthesia problems: none Family hx anesthesia problems: none Results Review: All pre-operative results and documents have been reviewed as part of the pre-operative evaluation. [facility] Past Medical History Medical History Self-harm Anxiety and depression Morbid obesity and not yet delivered Bipolar disorder History of substance abuse Patient denies medical problems Surgical History Surgical History H/O dilation and curettage Family History Family History Mother Diabetes mellitus Social History Social History Smoking status: Current every day smoker Tobacco type: e-cigarettes/vaping Alcohol intake: former Alcohol use details: social Substance use: former Substance use type: marijuana Last use: daily Do You Feel Safe in your Home?: Yes Lack of Transportation: No Lack of Food: Never True Current Housing: I Have Housing Concerned About Future Housing: No Difficulty Paying Gas/Electric Bills: No Difficulty Paying for Meds: No Currently Unemployed: No Education: Grade School Difficulty w/ Childcare or Family Care: No Living arrangements: with roommate(s) Occupation/Education: occupation Gender identity (if verbalized by the patient): Female Sexual Orientation (if Verbalized by the Patient): Straight or Heterosexual Spiritual care concerns: No Exam Day of Procedure 01/27/25 06:18 Patient weight: morbidly obese
[2025-01-27 06:37] LABS: Syphilis IgG/IgM Antibody Non-Reactive (Nonreactive)
--- NOTE | 2025-01-27 07:17 | P.HP_ITS ---
H&P: HPI History of Present Illness Date/Time: 01/27/25 07:17 Chief Complaint: Intrauterine at term Gestational diabetes Narrative: 30-year-old who presents for induction of labor at 37 weeks 0 days for gestational diabetes. Blood sugars have been poorly controlled. Most recent growth ultrasound showed EFW in the 90th percentile. MFM recommended proceeding with delivery at 37 weeks. Review of Systems Cardiovascular: Cardiovascular: Denies chest pain, Denies leg edema, Denies palpitations, Denies dyspnea and Denies dyspnea on exertion Respiratory: Respiratory: Denies cough, Denies dyspnea and Denies dyspnea on exertion Gastrointestinal: Gastrointestinal: Denies abdominal pain, Denies constipation, Denies diarrhea, Denies nausea and Denies vomiting Genitourinary: Genitourinary: Denies hematuria, Denies urinary frequency, Denies dysuria, Denies pelvic pain, Denies urinary incontinence and Denies vaginal discharge Neurologic: Reports system reviewed and no additional complaints, except as documented Psychiatric: Psychiatric: Reports no additional psychiatric complaints Endocrine: Endocrine: Denies palpitations PMFSH Past Medical History Medical History Self-harm Anxiety and depression Morbid obesity and not yet delivered Bipolar disorder History of substance abuse Patient denies medical problems Surgical History Surgical History H/O dilation and curettage Family History Family History Mother Diabetes mellitus Social History Social History Smoking status: Current every day smoker Tobacco type: e-cigarettes/vaping Alcohol intake: former Alcohol use details: social Substance use: former Substance use type: marijuana Last use: daily Do You Feel Safe in your Home?: Yes Lack of Transportation: No Lack of Food: Never True Current Housing: I Have Housing Concerned About Future Housing: No Difficulty Paying Gas/Electric Bills: No Difficulty Paying for Meds: No Currently Unemployed: No Education: Grade School Difficulty w/ Childcare or Family Care: No Living arrangements: with roommate(s) Occupation/Education: occupation Gender identity (if verbalized by the patient): Female Sexual Orientation (if Verbalized by the Patient): Straight or Heterosexual Spiritual care concerns: No Meds Home Medications and Allergies Home Medications ?Medication ?Instructions ?Recorded ?Confirmed ?Type vits no.126-ferrous fum 1 tablet PO DAILY 07/17/24 01/26/25 History 28 mg iron-folic acid 800 mcg tablet (Classic ) diclofenac potassium 25 mg capsule 25 mg PO BID 12/15/24 01/26/25 History Allergies Allergy/AdvReac Type Severity Reaction Status Date / Time No Known Allergies Allergy Verified 01/27/25 06:08 Vital Signs Vital Signs - 24 hr 01/27/25 05:48 01/27/25 06:03 01/27/25 06:08 Pulse Oximetry 100 100 Oxygen Delivery Room Air 01/27/25 06:13 01/27/25 06:18 01/27/25 06:23 Pulse Oximetry 100 100 100 Oxygen Delivery 01/27/25 06:28 01/27/25 06:33 01/27/25 06:38 Pulse Oximetry 100 100 100 Oxygen Delivery 01/27/25 06:43 01/27/25 06:48 01/27/25 06:53 Pulse Oximetry 100 100 100 Oxygen Delivery 01/27/25 06:58 01/27/25 07:03 01/27/25 07:08 Pulse Oximetry 100 100 100 Oxygen Delivery 01/27/25 07:13 Pulse Oximetry 100 Oxygen Delivery Exam Const: General: no acute distress Eyes: EOM: EOMs intact bilaterally Neck: Neck: supple Thyroid: thyroid normal Chest: Breast/axilla inspection: normal inspection of the breasts Breast/axilla palpation: normal palpation of the breasts, normal palpation of th e axillae and no axillary lymphadenopathy Resp: Effort & Inspection: normal respiratory effort Auscultation: clear to auscultation bilaterally Cardio: Rate: regular rate Rhythm: regular rhythm GI: Inspection: non-distended and other (Gravid) GI Palp: Yes Soft to palpation, No Tenderness to palpation present (GI) and No Guarding due to palpation present (GI) Auscultation: normal bowel sounds : Speculum Exam - Vagina: No vaginal bleeding OB/external & speculum: external exam normal; No vaginal bleeding Skin: General skin exam: normal color and no rashes or lesions noted Neuro: Cognition (Neuro): normal cognition Speech: normal speech Extrem: General: normal to inspection Psych: Mental Status: mental status grossly normal Affect: normal affect H&P: Results Labs Labs: Short CBC 01/27/25 Range/Units 05:16 WBC 11.4 H (4.5-10.0) K/mm3 Hgb 11.0 L (12.0-15.0) g/dL Hct 34.0 L (37.0-47.0) % Plt Count 254 (150-375) k/mm3 BMP 01/27/25 05:16 Sodium 135 L Potassium 4.0 Chloride 109 H Carbon Dioxide 17 L BUN 5 L Creatinine 0.49 L Glucose 146 H Calcium 9.3 Liver Function 01/27/25 Range/Units 05:16 Total Bilirubin 0.2 (0.2-1.3) mg/dL AST 21 (14-36) U/L ALT 15 (6-35) U/L Alkaline Phosphatase 145 H (38-126) U/L Albumin 3.3 L (3.5-5.1) g/dL Assessment and Plan Assessment and plan (1) Supervision of high risk , unspecified, third trimester: Code(s): O09.93 - Supervision of high risk , unspecified, third trimester Status: Acute Assessment and Plan: 30-year-old 010 who presents for induction of labor at 37 weeks Admit to L&D Routine admission orders Rubella nonimmune, recommend Rh-negative, will administer RhoGAM GBS unknown, will start antibiotics active labor Plan for misoprostol induction of labor Continuous EFM Epidural p.r.n. (2) Gestational diabetes: Code(s): O24.419 - Gestational diabetes mellitus in , unspecified control Status: Acute Assessment and Plan: Patient diagnosed with gestational diabetes Co managed with MFM Patient has had poor blood sugar control Most recent growth scan showed EFW in the 98th percentile [facility] recommended delivery at 37 weeks Will monitor blood sugars throughout labor (3) Bipolar disorder: Code(s): F31.9 - Bipolar disorder, unspecified Status: Acute Assessment and Plan: Bipolar- h/o self-harm, stopped trazodone, buspirone, bupropion, hydroxyzine with (4) History of substance abuse: Code(s): F19.11 - Other psychoactive substance abuse, in remission Status: Acute Assessment and Plan: History of meth use Five years sober Will order UDS on admission
[2025-01-27] MEDS: LACTATED RINGERS 500 ML 999 ML IV CONT (13:28)
[2025-01-28] VITALS (310 sets, daily range): BP systolic 104–155; BP diastolic 49–97; PULSE 58–239; RESP 12–17; TEMP 36.2–37.7; O2SAT 95–100
[2025-01-28 04:31] LABS: Hematocrit 35.4 % (37.0-47.0); Hemoglobin 11.2 g/dL (12.0-15.0); Immature Granulocyte Percent A 0.3 % (0-0.5); Lymphocytes Absolute Auto 2.61 K/mm3 (0.9-3.2); Mean Corpuscular HGB Conc 31.6 g/dl (32-36); Mean Corpuscular Hemoglobin 25.2 pg (26-34); Mean Corpuscular Volume 79.7 fl (80-100); Nucleated Red Blood Cells Absolute Auto 0.000 K/mm3 (0.0-0.012); Nucleated Red Blood Cells Perc 0.0 % (0.0-0.2); Platelet Count Result 247 k/mm3 (150-375); Red Blood Count 4.44 M/mm3 (4.2-5.4); White Blood Count 12.2 K/mm3 (4.5-10.0)
[2025-01-28 04:46] LABS: Add Urine Microscopic? YES; Appearance Urine Clear (Clear); Glucose Urine UA Negative (Negative); Leukocyte Esterase Ur Negative LEU/UL (Negative); Need Manual Microscopic Reviewed; Nitrate Urine Negative (Negative); Non Pathogenic Casts 0-2; Specific Grav Ur 1.013 (1.001-1.035)
[2025-01-28 04:52] LABS: Alanine Aminotransferase 13 U/L (6-35); Albumin Level 3.2 g/dL (3.5-5.1); Alkaline Phosphatase 148 U/L (38-126); Anion Gap 8 mmol/L (4-12); Aspartate Amino Transferase 22 U/L (14-36); Bilirubin,Total 0.2 mg/dL (0.2-1.3); Blood Urea Nitrogen 6 mg/dL (7-17); Calcium 9.2 mg/dL (8.4-10.2); Carbon Dioxide 17 mmol/L (22-30); Chloride 109 mmol/L (98-107); Estimated CRCL calculation 218 ml/min; Estimated Glomerular Filt Rate > 60; Glucose 105 mg/dL (65-110); Potassium 3.8 mmol/L (3.4-5.0); Sodium 134 mmol/L (137-145); Total Protein 6.2 g/dL (6.3-8.2); Uric Acid 5.3 mg/dL (2.5-7.5)
[2025-01-28] MEDS: LACTATED RINGERS 1,000 ML 125 ML IV CONT ×4 (04:53→18:10)
[2025-01-28] MEDS: OXYTOCIN 30 UNITS/NS 500 ML 30 UNITS/500 ML BAG IV CONT (04:54)
[2025-01-28 05:11] LABS: Total Protein Urine Random 228 mg/dL; Ur Ttl Prot Creatinine Ratio 3.81 mg/mg (0-0.20)
[2025-01-28] MEDS: ONDANSETRON INJ 4 MG/2 ML VIAL IV PUSH ×2 (08:03→21:44)
[2025-01-28] MEDS: fentaNYL CITRATE INJ (*CRX) 100 MCG/2 ML VIAL 50 MCG IV PUSH (08:15)
--- NOTE | 2025-01-28 12:42 | PM.OBPNLAB ---
Pain Control Date/time seen: 01/28/25 12:42 Pain control: epidural Pelvic Exam Dilation (cm): 3 Effacement (%): 70 station: -3 Amniotic membrane status: Intact Contractions Monitor mode: External Contraction pattern: Regular Contraction phase: Resting Contraction intensity: Moderate Status status: Category l Assessment and Plan Assessment: induction ongoing Comments: cervical balloon removed, cvx /-3. AROM for clear fluid. placenta anterior, IUPC placed posterior.
[2025-01-28] MEDS: AMPICILLIN SODIUM 2 GM in SODIUM CHLORIDE 0.9% IV 100 ML 200 ML IVPB (16:23)
[2025-01-28] MEDS: AMPICILLIN SODIUM 1 GM in SODIUM CHLORIDE 0.9% IV 50 ML 100 ML IVPB (20:59)
--- NOTE | 2025-01-28 21:38 | P.PNOB_ITS ---
Pain Control Date/time seen: 01/28/25 21:38 Pain control: epidural Pelvic Exam Dilation (cm): 4 Effacement (%): 70 station: -3 Amniotic membrane status: Intact Contractions Monitor mode: Internal Contraction frequency: 3 Contraction pattern: Irregular Contraction phase: Resting Contraction intensity: Mild Status status: Category l Assessment and Plan Assessment: induction ongoing Plan: Comments: Cervical exam has not changed since removal of cervical Nicholson balloon. station remains extremely high in the pelvis. Pitocin rate had reached 30. IUPC was in place contractions remained inadequate by Hartman units. heart tones remained category 1. Plan of care discussed with patient. Discussed concerns for protracted labor progression and station. Fetus noted to be large for gestational age on ultrasound with abdominal circumference larger than head circumference. Discussed concerns for potential delivery complications such as shoulder dystocia. Patient was offered primary delivery for failed induction of labor and failure to progress. Patient elects to proceed with primary . Risks, benefits, alternatives discussed.
[2025-01-28] MEDS: FAMOTIDINE 20 MG/2 ML VIAL IV PUSH (21:44)
[2025-01-28] MEDS: ACETAMINOPHEN 500 MG TABLET 1000 MG PO (21:44)
--- NOTE | 2025-01-28 23:10 | P.PCNOB_ITS ---
OB - Delivery Note Procedure Delivery date: 01/28/25 Pre-op diagnosis: Arrest of Dilation, Failed Induction of Labor and Gestational Diabetes Post-op Diagnosis: Same Induction method: Per Misoprostol Protocol Delivery augmentation: Rupture of Membranes and Pitocin Delivery monitor: External FHT and Internal Uterine Prior to decision for section, ACOG/SM labor guidelines were considered and discussed with the patient and staff. Decision made to proceed with the section.: Yes Procedure Performed: Primary Primary branch: low cervical, transverse Surgeon: Naseem Rodriguez MD Anesthesia type: Epidural Description of Procedure/Findings: The patient was taken to the operating room. A combined spinal epidural anesthesic was administered and found to be adequate at a t-10 level. The patient was placed in a supine position with a slight left lateral tilt. A delgado catheter was placed with return of clear urine. A Bovie grounding pad was placed. Surgical prep was performed and surgical drapes were placed. A surgical time out was performed. A Pfannenstiel skin incision was then made with the scalpel and carried through to the underlying layer of fascia. The fascia was then incised in the midline and the incision was extended laterally with the Dickson scissors. The superior aspect of the fascia was then grasped with the Naldo clamps, elevated, and the underlying rectus muscles dissected off bluntly and sharply. Attention was then turned to the inferior aspect of this incision which, in a similar fashion, was grasped, tented up with the Naldo clamps, and the rectus muscles dissected off both bluntly and sharply. The rectus muscles were then in the midline. The peritoneum was identified and entered bluntly. The peritoneal incision was then extended superiorly and inferiorly with good visualization of the bladder. An Mobius Ring retractor was placed for better visualization. The vesico-uterine serosa was identified and dissected to create a bladder flap. The uterus was inspected for rotation. A low-transverse uterine incision was made sharply with the scalpel and entry was made into the uterine cavity. The uterine incision was extended laterally bluntly. The bladder blade was removed and the fetus was delivered atraumatically. The nose and mouth were suctioned with a bulb syringe. The umbilical cord was clamped twice and cut. The was handed off to the waiting staff. A second segment of umbilical cord was clamped and cut for cord blood gasses. Cord blood was collected for determination of the blood type and for direct Bueno. The placenta was delivered spontaneously without difficulty. The placenta appeared grossly normal and complete. The uterus was exteriorized and cleared of all clots and debris. The uterine incision was repaired using 0-monocryl suture in a running fashion. A second layer of 0 Monocryl suture was used in an imbricating fashion to obtain excellent hemostasis and uterine strength. The uterine closure was inspected for hemostasis. The posterior aspect of the uterus and the broad ligaments were inspected and the posterior cul-de-sac cleared of fluid and blood clots. The uterine closure was again inspected and found to be hemostatic. The ring retractor was removed from the abdomen. The pericolic gutters were inspected and were cleared of all blood clots and debris. The uterine closure was then re inspected to ensure hemostasis as were all subfascial tissues. The peritoneum was closed using 3-0 vicryl in a running fashion. The rectus muscles were re-approximated with 0-monocryl in a series on mattress sutures. The fascia was reapproximated with 0-vicryl in a running fashion. The subcutaneous tissue was irrigated and hemostasis achieved with electrocautery. It was reapproximated with 3-0 vicryl in a running fashion. The skin was closed with lito. A sterile MICHAEL dressing was applied to the wound. The patient tolerated the procedure well. Sponge, lap and needle counts were correct times three. The patient was taken to recovery in stable condition and without anticipated complications. Specimen: No Estimated Blood Loss: 1,115 Urine Output: 150 Drains: No Packing: No Pathology: None sent Complications: No immediate complications Condition: Stable Disposition: Floor [place] Baby Date of : 01/28/25 Infant gender: Male presentation: vertex Placenta delivery description: Manual Removal Cord Vessel Description: 3 Vessels
--- NOTE | 2025-01-28 23:16 | PM.OBDSVD ---
DS: Admitting Diagnosis Discharge Date 02/01/25 <Fareed Little MD - Last Filed: 02/02/25 08:00> Admitting Diagnosis intrauterine at term gestational diabetes <Naseem Rodriguez MD - Last Filed: 01/28/25 23:19> DS: Discharge Diagnosis Discharge Diagnosis (1) delivery delivered: Code(s): O82 - Encounter for delivery without indication <Naseem Rodriguez MD - Last Filed: 01/28/25 23:19> Status: Acute <Naseem Rodriguez MD - Last Filed: 01/28/25 23:19> OB - DS: Summary OB Procedures : None <Naseem Rodriguez MD - Last Filed: 01/28/25 23:19> OB Procedures Intrapartum: <Naseem Rodriguez MD - Last Filed: 01/28/25 23:19> OB Procedures: : None <Naseem Rodriguez MD - Last Filed: 01/28/25 23:19> Peripartum Data Delivery Method: Section <Naseem Rodriguez MD - Last Filed: 01/28/25 23:19> Procedures: Procedures Operation Date: 01/28/25 21:45 <No data on this case meets the specified criteria> <Naseem Rodriguez MD - Last Filed: 01/28/25 23:19> complications: none <Naseem Rodirguez MD - Last Filed: 01/28/25 23:19> Status at Discharge Functional status at discharge: independent ambulation <Naseem Rodriguez MD - Last Filed: 01/28/25 23:19> Overall status at discharge: patient is progressing back to baseline <Naseem Rodriguez MD - Last Filed: 01/28/25 23:19> Time Spent with Patient Time attestation: Total time spent providing and/or coordinating discharge services: <Naseem Rodriguez MD - Last Filed: 01/28/25 23:19> Time spent: Less than 30 minutes <Naseem Rodriguez MD - Last Filed: 01/28/25 23:19> Exam Const: General: comfortable and no acute distress <Naseem Rodriguez MD - Last Filed: 01/28/25 23:19> Resp: Effort & Inspection: normal respiratory effort <Naseem Rodriguez MD - Last Filed: 01/28/25 23:19> Auscultation: clear to auscultation bilaterally <Naseem Rodriguez MD - Last Filed: 01/28/25 23:19> Cardio: Rate: regular rate <Naseem Rodriguez MD - Last Filed: 01/28/25 23:19> GI: Inspection: non-distended <Naseem Rodriguez MD - Last Filed: 01/28/25 23:19> GI Palp: Yes Soft to palpation, No Firmness to palpation present (GI), Yes Tenderness to palpation present (GI) (mild tenderness over incision ) and No Guarding due to palpation present (GI) <Naseem Rodriguez MD - Last Filed: 01/28/25 23:19> Auscultation: normal bowel sounds <Naseem Rodriguez MD - Last Filed: 01/28/25 23:19> Other: MICHAEL dressing in place <Naseem Rodriguez MD - Last Filed: 01/28/25 23:19> Psych: Appearance: grossly normal <Naseem Rodriguez MD - Last Filed: 01/28/25 23:19> Mental Status: mental status grossly normal <Naseem Rodriguez MD - Last Filed: 01/28/25 23:19> DS: Data Data Completed and Pending Labs on day of discharge: Labs from last 24 hours 01/28/25 01/28/25 01/28/25 19:53 15:35 11:34 WBC RBC Hgb Hct MCV MCH MCHC RDW Plt Count MPV Immature Gran % (Auto) Neut % (Auto) Lymph % (Auto) [place] % (Auto) Eos % (Auto) Baso % (Auto) Lymph # (Auto) [place] # (Auto) Eos # (Auto) Baso # (Auto) Abs Immat Gran (auto) Absolute Neuts (auto) Absolute Nucleated RBC Nucleated RBC % Sodium Potassium Chloride Carbon Dioxide Anion Gap BUN Creatinine Estim Creat Clear Calc Estimated GFR Glucose POC Capillary Glucose 83 82 130 H Uric Acid Calcium Total Bilirubin AST ALT Alkaline Phosphatase Total Protein Albumin Urine Color Urine Appearance Urine pH Ur Specific [place] Urine Protein Urine Glucose (UA) Urine Ketones Ur Blood (Man) Urine Nitrate Urine Bilirubin Urine Urobilinogen Add Ur Microanalysis Leukocyte Esterase Rfl Urine RBC Urine WBC Ur Squamous Epith Cells Urine Bacteria Urine Casts U Random Total Protein Urine Creatinine Protein/Creat Ratio 2 01/28/25 01/27/25 04:07 19:57 WBC 12.2 H RBC 4.44 Hgb 11.2 L Hct 35.4 L MCV 79.7 L MCH 25.2 L MCHC 31.6 L RDW 14.7 H Plt Count 247 MPV 11.0 H Immature Gran % (Auto) 0.3 Neut % (Auto) 70.2 Lymph % (Auto) 21.3 [place] % (Auto) 6.1 Eos % (Auto) 1.6 Baso % (Auto) 0.5 Lymph # (Auto) 2.61 [place] # (Auto) 0.8 H Eos # (Auto) 0.2 Baso # (Auto) 0.1 Abs Immat Gran (auto) 0.04 H Absolute Neuts (auto) 8.6 H Absolute Nucleated RBC 0.000 Nucleated RBC % 0.0 Sodium 134 L Potassium 3.8 Chloride 109 H Carbon Dioxide 17 L Anion Gap 8 BUN 6 L Creatinine 0.42 L Estim Creat Clear Calc 218 Estimated GFR > 60 Glucose 105 POC Capillary Glucose 122 H Uric Acid 5.3 Calcium 9.2 Total Bilirubin 0.2 AST 22 ALT 13 Alkaline Phosphatase 148 H Total Protein 6.2 L Albumin 3.2 L Urine Color Yellow Urine Appearance Clear Urine pH 6.5 Ur Specific [place] 1.013 Urine Protein 2+ H Urine Glucose (UA) Negative Urine Ketones Trace H Ur Blood (Man) Negative Urine Nitrate Negative Urine Bilirubin Negative Urine Urobilinogen 0.2 Add Ur Microanalysis Reviewed Leukocyte Esterase Rfl Negative Urine RBC 0-2 Urine WBC 0-5 Ur Squamous Epith Cells None seen Urine Bacteria None seen Urine Casts 0-2 U Random Total Protein 228 Urine Creatinine 59.8 Protein/Creat Ratio 2 3.81 H <Naseem Rodriguez MD - Last Filed: 01/28/25 23:19> Discharge Plan Discharge Attending physician on discharge: Naseem Rodriguez <Naseem Rodriguez MD - Last Filed: 01/28/25 23:19> Naseem Rodriguez <Fareed Little MD - Last Filed: 02/02/25 08:00> Consulting providers: Fareed Little <Naseem Rodriguez MD - Last Filed: 01/28/25 23:19> Discharging Clinician: Fareed Little <Naseem Rodriguez MD - Last Filed: 01/28/25 23:19> Fareed Little <Fareed Little MD - Last Filed: 02/02/25 08:00> Anticipated Discharge Date/Time: 02/01/25 06:50 <Naseem Rodriguez MD - Last Filed: 01/28/25 23:19> Patient Disposition: Home <Naseem Rodriguez MD - Last Filed: 01/28/25 23:19> Activity: pelvic rest <Naseem Rodriguez MD - Last Filed: 01/28/25 23:19> pelvic rest <Fareed Little MD - Last Filed: 02/02/25 08:00> Diet: regular <Naseem Rodriguez MD - Last Filed: 01/28/25 23:19> regular <Fareed Little MD - Last Filed: 02/02/25 08:00> Discharge Instructions: Education: Mom and Baby Guide Given to: Mother Follow-Up: Call your delivering provider's office for an appointment to be seen in: 1 Week Mom and baby should come to the [facility] for the follow-up appointment. Appointment Date/Time: February 03, 2025 at 10:00 am What to expect at your follow-up visit: Blood Pressure Check Physical Assessment Call [phone] if you are unable to keep your appointment time. BREAST CARE: * Wear a snug supportive bra. * For engorgement discomfort: Breast Feeding: * Apply warm moist washcloths * Express milk as needed to relieve engorgement * Wear loose clothing * For sore nipples: * Identify correct latch-on * Apply warm moist washcloths before and after nursing * Air dry nipples after nursing * May apply Lansinoh cream to nipples ABDOMINAL INCISION: (if applicable) * Allow incision to air dry * Do NOT use lotions for powders on your incision * When showering, allow soap and water to run over the incision, but do not wash incision EPISIOTOMY/PERINEAL CARE: * Until bleeding stops, use your lily bottle after urinating * Change your pad frequently throughout the day * No tub baths until seen by your physician - You may shower ACTIVITY: * Rest as much as possible. * Do not exercise or lift anything heavier than your baby (such as laundry or other children.) * Avoid stairs or driving as much as possible. * Do not put anything into the vagina. No douching, tampons, or sexual activity until seen by physician. NOTIFY PHYSICIAN IF YOU HAVE ANY QUESTIONS OR IF ANY OF THE FOLLOWING SYMPTOMS OCCUR: * If your incision becomes red, swollen, or more painful than what you have experienced in the hospital. * If your vaginal bleeding becomes foul smelling. * If your vaginal bleeding becomes more heavy than a period or if your bleeding changes from pink to bright red. However, you may pass an occasional walnut-sized clot once or twice for the first week . * If you experience a sharp, shooting pain in you calves. * If you discover a hard, reddened area on your breast or if you experience flu-like symptoms. DIET: * Eat regular, well-balanced meals. * Drink plenty of fluids daily. If , drink to thirst. <Naseem Rodriguez MD - Last Filed: 01/28/25 23:19> Patient Instructions: (DC) <Naseem Rodriguez MD - Last Filed: 01/28/25 23:19> Patient Language: [place]an <Naseem Rodriguez MD - Last Filed: 01/28/25 23:19> Stand Alone Forms: General Discharge Information <Naseem Rodriguez MD - Last Filed: 01/28/25 23:19> Follow-up/Referrals: Naseem Rodriguez MD [Physician] - 1 Week (Staple removal) <Naseem Rodriguez MD - Last Filed: 01/28/25 23:19> Discharge Medications: New oxycodone-acetaminophen 5-325 mg tablet 1 tablet PO Q6H PRN (Reason: pain) Qty: 28 0RF ibuprofen 600 mg tablet 600 mg PO Q6H PRN (Reason: pain) Qty: 30 0RF sennosides-docusate sodium [Senna with Docusate Sodium] 8.6-50 mg tablet 1 tab-cap PO HS Qty: 30 0RF Continued Classic 28 mg iron- 800 mcg tablet 1 tablet PO DAILY Discontinued diclofenac potassium 25 mg capsule 25 mg PO BID <Naseem Rodriguez MD - Last Filed: 01/28/25 23:19> Date of admission: 01/27/25 05:12 <Naseem Rodriguez MD - Last Filed: 01/28/25 23:19> Primary Care Provider: Yojana,Ramandeep <Naseem Rodriguez MD - Last Filed: 01/28/25 23:19> Admitting Provider: Naseem Rodriguez <Naseem Rodriguez MD - Last Filed: 01/28/25 23:19> Attending physician on admission: Naseem Rodriguez <Naseem Rodriguez MD - Last Filed: 01/28/25 23:19> Condition: Stable <Naseem Rodriguez MD - Last Filed: 01/28/25 23:19>
[2025-01-29] VITALS (40 sets, daily range): BP systolic 100–138; BP diastolic 53–81; PULSE 67–101; RESP 14–18; TEMP 36.2–37; O2SAT 97–100
[2025-01-29] MEDS: OXYTOCIN 30 UNITS/NS 500 ML 30 UNITS/500 ML BAG 125 UNITS IV CONT (01:53)
--- NOTE | 2025-01-29 02:20 | OBPPTRN ---
Patient transferred to post room #282 via stretcher. Support person present. Oriented to unit, room, information board, rooming in, admission packet and security measures. Patient verbalizes understanding.
[2025-01-29] MEDS: ACETAMINOPHEN 500 MG TABLET 1000 MG PO ×4 (02:37→20:53)
[2025-01-29] MEDS: LIDOCAINE 5% PATCH 1 PATCH TRANSDERM (02:37)
[2025-01-29] MEDS: KETOROLAC 15 MG/ML VIAL (*BKC) IV PUSH ×3 (02:37→14:40)
[2025-01-29 04:40] LABS: Hematocrit 31.8 % (37.0-47.0); Hemoglobin 10.0 g/dL (12.0-15.0); Immature Granulocyte Percent A 0.6 % (0-0.5); Lymphocytes Absolute Auto 1.46 K/mm3 (0.9-3.2); Mean Corpuscular HGB Conc 31.4 g/dl (32-36); Mean Corpuscular Hemoglobin 25.3 pg (26-34); Mean Corpuscular Volume 80.3 fl (80-100); Nucleated Red Blood Cells Absolute Auto 0.000 K/mm3 (0.0-0.012); Nucleated Red Blood Cells Perc 0.0 % (0.0-0.2); Platelet Count Result 232 k/mm3 (150-375); Red Blood Count 3.96 M/mm3 (4.2-5.4); White Blood Count 16.1 K/mm3 (4.5-10.0)
[2025-01-29] MEDS: DEXTROSE 5%/0.45% SOD CHL 1,000 ML 125 ML IV CONT (06:30)
[2025-01-29] MEDS: MULTIVIT/MIN/PREN/FOL AC/IRON TABLET 1 TAB PO (08:21)
[2025-01-29] MEDS: SIMETHICONE 80 MG TAB.CHEW PO ×3 (08:21→20:53)
[2025-01-29] MEDS: DOCUSATE SODIUM 100 MG CAPSULE PO ×2 (08:21→20:53)
--- NOTE | 2025-01-29 08:30 | PC.NURSE ---
Patient set up with a breast pump due to in level 2 nursery. Nipple measurement 20mm. Mother was shown proper sizing and placement of flanges (24mm), pump settings, and cleaning of pump parts. Recommended 15 minutes of pumping both breasts simultaneously. Patient is aware that pumping should not hurt. She is encouraged to use the highest comfortable suction setting, gradually increasing the level as she pumps. Patient provided with a basin for cleaning parts between uses. Breast milk storage guidelines given. Discussed use of expressed breast milk by placing drops of milk in baby?s mouth with a clean finger, syringe feeding, bottle feeding, or mixing colostrum with a small volume of formula and feeding with a bottle.? Primary RN updated.??
--- NOTE | 2025-01-29 12:30 | PM.OBPNVD ---
OB - PN: Subj Subjective Date/time seen: 01/29/25 12:30 Narrative: POD#1 Dodie reports doing well today. Her bleeding is normal. Her pain is controlled. She is tolerating regular diet, passed gas, and has ambulated without issues. She still has the catheter in place; ready for it to be taken out so she can shower. She denies any issues with her incision/michael dressing. She is pumping. She would like her son circumcised, but he is level 2 due to breathing, glucose issues. OB - PN: Obj Data Labs 01/29/25 04:35 01/28/25 04:07 Labs: Laboratory Results - last 24 hr 01/28/25 01/28/25 01/28/25 11:34 15:35 19:53 WBC RBC Hgb Hct MCV MCH MCHC RDW Plt Count MPV Immature Gran % (Auto) Neut % (Auto) Lymph % (Auto) [place] % (Auto) Eos % (Auto) Baso % (Auto) Lymph # (Auto) [place] # (Auto) Eos # (Auto) Baso # (Auto) Abs Immat Gran (auto) Absolute Neuts (auto) Absolute Nucleated RBC Nucleated RBC % POC Capillary Glucose 130 H 82 83 Blood Type Antibody Screen Screen Baby's Blood Type Baby's RYAN Doses of RhIg Required 01/29/25 04:35 WBC 16.1 H RBC 3.96 L Hgb 10.0 L Hct 31.8 L MCV 80.3 MCH 25.3 L MCHC 31.4 L RDW 14.5 Plt Count 232 MPV 10.9 H Immature Gran % (Auto) 0.6 H Neut % (Auto) 84.3 H Lymph % (Auto) 9.1 L [place] % (Auto) 5.7 Eos % (Auto) 0.1 Baso % (Auto) 0.2 Lymph # (Auto) 1.46 [place] # (Auto) 0.9 H Eos # (Auto) 0.0 Baso # (Auto) 0.0 Abs Immat Gran (auto) 0.10 H Absolute Neuts (auto) 13.5 H Absolute Nucleated RBC 0.000 Nucleated RBC % 0.0 POC Capillary Glucose Blood Type A Negative Antibody Screen Negative Screen Negative Baby's Blood Type A pos Baby's RYAN Negative Doses of RhIg Required 1 OB - PN A/P Assessment and Plan (1) delivery delivered: Code(s): O82 - Encounter for delivery without indication Status: Acute Plan day: 1 Plan: routine care Comments: - remove delgado this afternoon - PO pain meds - Regular diet - Ambulation and hydration encouraged - Continue pumping q3hr - circ to be performed after on PP off IV fluids Time Spent With Patient Time: Total time spent is greater than 50% in coordination of care (as documented) at patient's floor/unit and/or counseling patient: Review of Systems Constitutional: Constitutional: Denies chills, Denies fever(s) and Denies headache(s) Eyes: Eyes: Denies change in vision ENT: Denies dizziness and Denies headache(s) Cardiovascular: Cardiovascular: Denies chest pain, Denies palpitations and Denies dyspnea Respiratory: Respiratory: Denies cough and Denies dyspnea Gastrointestinal: Gastrointestinal: Denies nausea and Denies vomiting Genitourinary: Comments: normal bleeding Neurologic: Denies dizziness and Denies headache(s) Endocrine: Endocrine: Denies palpitations Exam Const: General: cooperative, comfortable, no acute distress and obese Orientation/consciousness: patient oriented x3 Resp: Effort & Inspection: normal respiratory effort Auscultation: clear to auscultation bilaterally Cardio: Rate: regular rate GI: Inspection: non-distended and incision (covered with clean MICHAEL dressing) GI Palp: Yes abdominal tenderness (appropriate) and Yes Soft to palpation Auscultation: normal bowel sounds : Other: fundus firm Urinary Catheter: Urinary Catheter: patent and draining Skin: General skin exam: normal color Neuro: General: patient oriented x3 Extrem: General: normal to inspection Psych: Appearance: grossly normal Affect: normal affect Attitude: cooperative
--- NOTE | 2025-01-29 12:31 | WPDANLDPN2 ---
Anes-Prog Note L&D Date/Time: 01/29/25 12:31 Comfortable throughout: section Epidural/Spinal procedure site: clean & non-tender Neuro status: Neuro function grossly intact. Cardiovascular status: normal Respiratory status: normal Airway patency: baseline Mental status: baseline Vital Signs: Last Vital Signs Temp 36.2 C L 01/29/25 12:05 Pulse 90 01/29/25 12:05 Resp 18 01/29/25 12:05 BP 126/80 01/29/25 12:05 Pulse Ox 98 01/29/25 12:05 O2 Del Method Room Air 01/29/25 06:30 Pain score (VAS): 2 I/O: Intake & Output 01/28/25 01/29/25 01/29/25 23:59 07:59 15:59 Intake Total 1000 720 Output Total 150 400 Balance 850 320 Patient feedback: Patient satisfied with anesthetic care.
[2025-01-29] MEDS: KCL 20 MEQ/D5/0.45% SOD CHL 1,000 ML 125 ML IV CONT (14:42)
--- NOTE | 2025-01-29 14:45 | PC.NURSE ---
Assisted patient to wash her pump parts for the next session. Reinforced that not getting much volume with pumping is expected. Anticipatory guidance provided regarding when milk is expected to increase in volume and become abundant. Patient verbalized understanding. She feels good that baby is able to eat, whether its from a bottle of formula or the breast. Primary RN updated.
[2025-01-29] MEDS: RHO(D) IMMUNE GLOBULIN 300 MCG/2 ML SYRINGE IM (15:02)
[2025-01-29] MEDS: IBUPROFEN 600 MG TABLET PO (20:53)
[2025-01-30] MEDS: ACETAMINOPHEN 500 MG TABLET 1000 MG PO ×4 (04:03→22:35)
[2025-01-30] MEDS: IBUPROFEN 600 MG TABLET PO ×4 (04:03→22:34)
[2025-01-30 04:15] VITALS: BP 125/75; PULSE 77
[2025-01-30] MEDS: LIDOCAINE 5% PATCH 1 PATCH TRANSDERM (04:15)
[2025-01-30] MEDS: SIMETHICONE 80 MG TAB.CHEW PO ×3 (05:04→16:14)
--- NOTE | 2025-01-30 07:10 | P.PNOB_ITS ---
OB - PN: Subj Subjective Date/time seen: 01/30/25 07:10 Narrative: POD#2 Dodie reports doing well today. Her bleeding is umbrella tipper machine. Her pain is controlled. She is tolerating regular diet, voiding, passing gas, and ambulating without issues. She denies any issues with her incision. She is pumping. She would like her son circumcised, but he is still level 2, still on D10 IV fluids. OB - PN: Obj Data Labs 01/29/25 04:35 01/28/25 04:07 Labs: Laboratory Results - last 24 hr 01/29/25 04:35 Blood Type A Negative Antibody Screen Negative Screen Negative Baby's Blood Type A pos Baby's RYAN Negative Doses of RhIg Required 1 OB - PN A/P Assessment and Plan (1) delivery delivered: Code(s): O82 - Encounter for delivery without indication Status: Acute Plan day: 2 Plan: routine care Comments: - PO pain meds - Regular diet - Ambulation and hydration encouraged - Continue pumping q3h - Circ to be performed after infant on PP off IV fluids Time Spent With Patient Time: Total time spent is greater than 50% in coordination of care (as documented) at patient's floor/unit and/or counseling patient: Review of Systems 2 Constitutional: Constitutional: Denies chills, Denies fever(s) and Denies headache(s) Eyes: Eyes: Denies change in vision ENT: Denies dizziness and Denies headache(s) Cardiovascular: Cardiovascular: Denies chest pain, Denies palpitations and Denies dyspnea Respiratory: Respiratory: Denies cough and Denies dyspnea Gastrointestinal: Gastrointestinal: Denies nausea and Denies vomiting Genitourinary: Comments: normal bleeding Neurologic: Denies dizziness and Denies headache(s) Endocrine: Endocrine: Denies palpitations Exam 2 Const: General: cooperative, comfortable and no acute distress O rientation/consciousness: patient oriented x3 Resp: Effort & Inspection: normal respiratory effort Auscultation: clear to auscultation bilaterally Cardio: Rate: regular rate GI: Inspection: non-distended and incision (covered with clean dressing) GI Palp: Yes abdominal tenderness (appropriate) and Yes Soft to palpation A uscultation: normal bowel sounds : Other: fundus firm Skin: General skin exam: normal color Neuro: General: patient oriented x3 Extrem: General: normal to inspection Psych: Appearance: grossly normal Affect: normal affect Attitude: c ooperative
[2025-01-30 07:30] VITALS: BP 124/86; PULSE 81; RESP 18; TEMP 37.1; O2SAT 100
[2025-01-30] MEDS: DOCUSATE SODIUM 100 MG CAPSULE PO ×2 (08:31→16:14)
[2025-01-30] MEDS: MULTIVIT/MIN/PREN/FOL AC/IRON TABLET 1 TAB PO (08:31)
[2025-01-30 11:12] VITALS: BP 129/77; PULSE 85; RESP 18; TEMP 36.8; O2SAT 100
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
[2025-01-30 16:15] VITALS: BP 141/83; PULSE 99
[2025-01-30] MEDS: oxyCODONE HCL (*CRX) 5 MG TAB IR PO ×2 (16:15→21:15)
--- NOTE | 2025-01-30 17:52 | PC.NURSE ---
1750. Introductions were made, then consulted with patient to assess needs related to . Discussed with mother her plans to feed her and the experience so far. Mom expressed interest in wanting to try to breastfeed infant. Attempts were made to latch to the breast with no success. Mom has bilateral flat nipples. Nipple shield provided to mother due to flat nipples. Reviewed good handwashing, cleaning the nipple shield and the appropriate way to apply and use as a tool. Discussed with mom the nipple shield precautions, possible complications associated with the risks and benefits. Reviewed practicing with a nipple shield, then without and how to protect the milk supply and production. Mom and baby guide referred to as a resource for outpatient services, community resources and when to call a provider. Mom voiced understanding of the importance of hand expression, nipple stimulation and initiating a pumping schedule if continues to nurse with the shield.Attempts were made to latch the with the shield, infant was unsuccessful at this feeding. Mom states that she is comfortable bottle feeding and pumping. Mom was encouraged that she could attempt again each feeding at the breast to see if will get the hang of it and latch at the breast. Mom was encouraged to call for the next feed if she would like assistance with latching to the breast. Resources provided for inpatient and outpatient services with the feeding sheet, mom/baby guide and name written on the communication board. Mother voiced understanding of information and will call if there is a request for assistance. Reported to the Primary RN.?
[2025-01-30 19:26] VITALS: BP 143/73; PULSE 99; RESP 18; TEMP 36.7; O2SAT 100
[2025-01-31 00:19] VITALS: BP 138/78
[2025-01-31] MEDS: oxyCODONE HCL (*CRX) 5 MG TAB IR PO (03:44)
[2025-01-31] MEDS: ACETAMINOPHEN 500 MG TABLET 1000 MG PO ×3 (04:53→18:43)
[2025-01-31] MEDS: IBUPROFEN 600 MG TABLET PO ×3 (04:53→18:43)
[2025-01-31] MEDS: LIDOCAINE 5% PATCH 1 PATCH TRANSDERM (04:54)
[2025-01-31 04:55] VITALS: BP 148/90
[2025-01-31 08:00] VITALS: BP 138/84; PULSE 82; RESP 18; TEMP 36.9; O2SAT 99
--- NOTE | 2025-01-31 08:33 | P.PNOB_ITS ---
OB - PN: Subj Subjective Date/time seen: 01/31/25 08:33 Interval history: Has mild pulling to right of incision. Has adequate pain control, ambulating, positive flatus. Denies headache scotomata or RUQ pain. Denies leg pain. OB - PN: Obj Data Labs 01/29/25 04:35 01/28/25 04:07 OB - PN A/P Assessment and Plan (1) delivery delivered: Code(s): O82 - Encounter for delivery without indication Status: Acute Assessment and Plan: POD3. Doing well. Mild intermittent elevated blood pressures. This am blood pressure normal. No PIH symptoms. Will check PIH labs. If normal then will continue to monitor. Possible discharge today if baby discharged. Time Spent With Patient Time: Total time spent is greater than 50% in coordination of care (as documented) at patient's floor/unit and/or counseling patient: Exam 2 Const: General: comfortable and no acute distress Resp: Effort & Inspection: normal respiratory effort GI: Other: dressing clean dry and intact no surrounding swelling or erythema Neuro: General: patient oriented x3 Extrem: General: normal to inspection and no calf tenderness Psych: Mental Status: mental status grossly normal
[2025-01-31] MEDS: SIMETHICONE 80 MG TAB.CHEW PO ×3 (09:11→16:46)
[2025-01-31] MEDS: DOCUSATE SODIUM 100 MG CAPSULE PO ×2 (09:11→16:46)
[2025-01-31] MEDS: MULTIVIT/MIN/PREN/FOL AC/IRON TABLET 1 TAB PO (09:11)
[2025-01-31] MEDS: TETANUS,DIPHTHERIA,AC PERTUSSIS ADULT (0.5 ML) BOOSTRIX IM (09:12)
--- NOTE | 2025-01-31 09:30 | PC.NURSE ---
Introductions were made, then consulted with patient to assess needs related to . Mother led the conversation with her?plans to feed?her infant and the?experience so far. Mother states that she does not intend on putting infant to breast and plans to only pump and bottle feed infant along with supplementation with formula. Mother currently has a hospital provided breast pump at bedside. Reviewed education on cleaning, care, usage, that there should be no pain, pumping schedule for milk production, collection, and storage of human milk. Patient was assessed for correct placement, flange size, to pump for comfort and nipple stretching/stimulation for adequate milk production every 3 hours (8 times in 24 hours) 1-2 times at night.?Mother voiced understanding of the education. Reported to the Primary RN.
[2025-01-31 09:35] LABS: Hematocrit 28.2 % (37.0-47.0); Hemoglobin 9.0 g/dL (12.0-15.0); Immature Granulocyte Percent A 0.4 % (0-0.5); Lymphocytes Absolute Auto 2.14 K/mm3 (0.9-3.2); Mean Corpuscular HGB Conc 31.9 g/dl (32-36); Mean Corpuscular Hemoglobin 25.9 pg (26-34); Mean Corpuscular Volume 81.0 fl (80-100); Nucleated Red Blood Cells Absolute Auto 0.000 K/mm3 (0.0-0.012); Nucleated Red Blood Cells Perc 0.0 % (0.0-0.2); Platelet Count Result 254 k/mm3 (150-375); Red Blood Count 3.48 M/mm3 (4.2-5.4); White Blood Count 8.9 K/mm3 (4.5-10.0)
[2025-01-31 09:56] LABS: Alanine Aminotransferase 17 U/L (6-35); Albumin Level 3.1 g/dL (3.5-5.1); Alkaline Phosphatase 121 U/L (38-126); Anion Gap 10 mmol/L (4-12); Aspartate Amino Transferase 29 U/L (14-36); Bilirubin,Total 0.3 mg/dL (0.2-1.3); Blood Urea Nitrogen 8 mg/dL (7-17); Calcium 9.0 mg/dL (8.4-10.2); Carbon Dioxide 19 mmol/L (22-30); Chloride 108 mmol/L (98-107); Estimated CRCL calculation 187 ml/min; Estimated Glomerular Filt Rate > 60; Glucose 133 mg/dL (65-110); Potassium 3.8 mmol/L (3.4-5.0); Sodium 137 mmol/L (137-145); Total Protein 6.0 g/dL (6.3-8.2); Uric Acid 6.6 mg/dL (2.5-7.5)
[2025-01-31 12:24] VITALS: BP 109/85; PULSE 87; RESP 18; TEMP 37.2; O2SAT 99
[2025-01-31 16:19] VITALS: BP 131/80; PULSE 82; RESP 18; TEMP 37.3; O2SAT 99
[2025-01-31 20:00] VITALS: BP 138/90; PULSE 86; RESP 18; TEMP 36.6; O2SAT 99
[2025-02-01] MEDS: ACETAMINOPHEN 500 MG TABLET 1000 MG PO ×3 (00:44→14:37)
[2025-02-01] MEDS: IBUPROFEN 600 MG TABLET PO ×3 (00:45→14:37)
[2025-02-01] MEDS: oxyCODONE HCL (*CRX) 5 MG TAB IR PO (00:49)
[2025-02-01 01:00] VITALS: BP 132/85; PULSE 82
[2025-02-01 04:45] VITALS: BP 132/85; PULSE 82
[2025-02-01] MEDS: LIDOCAINE 5% PATCH 1 PATCH TRANSDERM (04:49)
--- NOTE | 2025-02-01 06:47 | PM.OBPNVD ---
OB - PN: Subj Subjective Date/time seen: 02/01/25 06:47 Interval history: States doing well, no complaints. Has adequate pain control, no leg pain, ambulating without problems. Baby was not discharged yesterday. OB - PN: Obj Data Labs 01/31/25 09:28 01/31/25 09:28 Labs: Laboratory Results - last 24 hr 01/31/25 09:28 WBC 8.9 RBC 3.48 L Hgb 9.0 L Hct 28.2 L MCV 81.0 MCH 25.9 L MCHC 31.9 L RDW 15.3 H Plt Count 254 MPV 10.2 Immature Gran % (Auto) 0.4 Neut % (Auto) 65.7 Lymph % (Auto) 24.0 [place] % (Auto) 6.1 Eos % (Auto) 2.9 Baso % (Auto) 0.9 Lymph # (Auto) 2.14 [place] # (Auto) 0.5 Eos # (Auto) 0.3 Baso # (Auto) 0.1 Abs Immat Gran (auto) 0.04 H Absolute Neuts (auto) 5.8 Absolute Nucleated RBC 0.000 Nucleated RBC % 0.0 Sodium 137 Potassium 3.8 Chloride 108 H Carbon Dioxide 19 L Anion Gap 10 BUN 8 Creatinine 0.50 L Estim Creat Clear Calc 187 Estimated GFR > 60 Glucose 133 H Uric Acid 6.6 Calcium 9.0 Total Bilirubin 0.3 AST 29 ALT 17 Alkaline Phosphatase 121 Total Protein 6.0 L Albumin 3.1 L OB - PN A/P Assessment and Plan (1) delivery delivered: Code(s): O82 - Encounter for delivery without indication Status: Acute Assessment and Plan: Doing well. Discharge held yesterday due to baby not discharged. Discharge today. Discharge precautions discussed. Plan Plan: discharge home Time Spent With Patient Time: Total time spent is greater than 50% in coordination of care (as documented) at patient's floor/unit and/or counseling patient:
[2025-02-01 07:30] VITALS: BP 144/92; PULSE 79; RESP 16; TEMP 36.3; O2SAT 100
[2025-02-01] MEDS: MEASLES,MUMPS,RUBELLA VACCINE 0.5 ML VIAL SUB-Q (07:51)
[2025-02-01] MEDS: SIMETHICONE 80 MG TAB.CHEW PO ×2 (07:51→14:37)
[2025-02-01] MEDS: DOCUSATE SODIUM 100 MG CAPSULE PO (07:54)
[2025-02-01] MEDS: MULTIVIT/MIN/PREN/FOL AC/IRON TABLET 1 TAB PO (07:54)
[2025-02-01 12:00] VITALS: BP 106/61
[2025-02-03 10:35] VITALS: BP 140/79; PULSE 88; RESP 18; TEMP 36.9; O2SAT 100
== END 2025-02-01 17:58 | disposition home or self-care (01) | DRG 540 ==
LOC: ANHLDR 01-28 23:19 → ANHOB2 01-29 02:22
PROVIDERS: Obstetrics & Gynecology; Admitting Provider Student in an Organized Health Care Education/Training Program; PCP Internal Medicine; Visit Provider Student in an Organized Health Care Education/Training Program
PROC: 10D00Z1 Extraction of Products of Conception, Low, Open Approach (ICD-10-PCS; CPT 59514; principal; 2025-01-28 21:45)
DX: O24.429 Gestational diabetes mellitus in childbirth, unspecified control (principal); Z37.0 Single live birth; Z3A.37 37 weeks gestation of pregnancy; O62.1 Secondary uterine inertia; O36.63X0 Maternal care for excessive fetal growth, third trimester, not applicable or unspecified; O14.04 Mild to moderate pre-eclampsia, complicating childbirth; O26.893 Other specified pregnancy related conditions, third trimester; Z67.91 Unspecified blood type, Rh negative; O61.0 Failed medical induction of labor
CPT/HCPCS: 36415; 80053; 80307; 81001; 82570; 82948; 84156; 84550; 85025; 85461; 86593; 86850; 86900; 86901; 90384; 90710; 90715; A9270; J0290; J1885; J2004; J2274; J2371; J2405; J2590; J2790; J2795; J3010; J3480; J7120

== ENCOUNTER 2025-04-06 16:05 | Outpatient (CLI) | payer OTHER, SELFPAY ==
--- OUTSIDE RECORDS SUMMARY | 2023-12-11 03:40 | XMS_ITS ---
Author Organization [facility] Address [address] [place] [address] Care Team Providers Care Pourer Bull Ladle Name Role Phone Lo Castro Primary Care Provider Sierra Bhatt [phone] REASON FOR VISIT having Selene Blanchard patient [...] Active Encounters Encounter Location Date Provider Diagnosis [address] [address] 12/11/2023 Sierra Bhatt Plan Of Treatment No Information Progress Notes * Dodie GILBERTDOB:[birth year] (30 yo F)Acc No.[id number]:12/11/2023 UNLOCKED PROGRESS NOTE Patient: Dodie LARSON Provider: Kathy Bhatt, RAKEL, WWE WRESTLER, PMHNP-BC :1995 A ge:28 Y S ex:Female Date:12/11/2023 [facility] [facility] Pcp:Lo Castro Check In:08:40 AM SUPERVISOR ASSEMBLY ROOM Subjective: * Chief Complaints: * 1 . [...] * Electronic signature of Tabitha Galloway , [id number] on 04/06/2025 at 06:33 PM CDT Sign off status: Pending * Provider: Kathy Bhatt DNP, WWE WRESTLER, PMHNP- Date: 0 12/11/2023 Generated for Printing/Faxing/eTransmitting on: 1 06:33 PM CDT
--- OUTSIDE RECORDS SUMMARY | 2024-04-14 10:40 | XMS_ITS ---
Author Organization [facility] Address [address] [place] [address] Care Team Providers Care Embalmer Assistant Name Role Phone Lo Castro Primary Care Provider REASON FOR VISIT 6 month f/u Encounters Encounter Location Date Provider Diagnosis [address] [place] [address] 04/14/2024 Lo Castro Plan Of Treatment No Information Progress Notes * Dodie GILBERTDOB:[birth year] (30 yo F)Acc No.[id number]:04/14/2024 UNLOCKED PROGRESS NOTE Patient: Dodie LARSON Provider: LEATHA Merrill, ROLLOUT MANAGER, GREENS KEEPER-C :1995 A ge:29 Y S ex:Female Date:04/14/2024 Address:[address] [place], [place] [id number] Subjective: * Chief Complaints: * 1 . 6 month f/u. * Medical History: Objective: * Vitals: Assessment: Plan: * Treatment: * * Electronic signature of Devon Castro , [id number] on 04/06/2025 at 06:32 PM CDT Sign off status: Pending * Provider: LEATHA Merrill, ROLLOUT MANAGER, GREENS KEEPER-C Date: Generated for Destiny crews/Dank/Mounikasmitting on: 1 06:32 PM CDT
[2025-04-06 17:27] LABS: Beta HCG Quantitative < 2.39 mIU/ML
--- OUTSIDE RECORDS SUMMARY | 2025-04-06 18:32 | XMS_ITS | Patient Health Record ---
Author Organization [facility] Address [address] [place] [address] Care Team Providers Care Decorative Engraver Apprentice Name Role Phone Lo Castro Primary Care Provider Allergies No Known Allergies Reason For Referral No Information Medications Medication SIG (Take, Route, Frequency, Duration) Notes Start Date End Date Status Wellbutrin XL 150 MG 1 tablet in the mor kimmy Orally Once a day; Duration: 30 days Active busPIRone HCl 15 MG as directed Orally H usp a tablet in the morning AND one [...] Status Risk Notes Problem Generalized anxiety disorder (06890415) Generalized anxiety disorder (F41.1) Active confirmed Problem Major depression (045501545) Major depression (F32.9) Active confirmed continue to eval for bipolar chemistry Problem Methamphetamine abuse (291478921) Methamphetamine abuse (F15.10) Active confirmed reports no use since first week of September 2022 Problem Sleep disturbance (02722410) Sleep disturbance, unspecified (G47.9) Active confirmed Encounters Encounter Location Date Provider Diagnosis [facility] [address] [place] [address] 04/15/2024 Lo Castro Major depression F32 .9 ; Sleep disturbance, unspecified G47.9 ; Generalized anxiety disorder F41.1 and Methamphetamine abuse F15.[address] [place] [address] 06/24/2024 Lo Castro Assessments Encounter Date Diagnosis [...] Insured Coverage Start Date Coverage End Date [employer] [address] [place] [phone] [id number] Dodie Rashid Self - patient is the insured 3 [employer] [address] [place] [phone] [id number] Dodie Rashid Self - patient is the insured 3 Medical (General) History Surgical History Surgery Date(Month/Year) tubing surgery (1 year old) 1994 dilatation and curettage (miscarriage) 2 016 Hospitalization History Reason Date(Month/Year) - [place] 2021 - [place] 2022
--- OUTSIDE RECORDS SUMMARY | 2025-04-06 18:33 | XMS_ITS | Clinical Summary ---
Author Organization [facility] Address [address] [place] [address] Care Team Providers Care Quartz Orientator Name Role Phone Trinidad Dial MD Primary [...] MD 30 tablet 08/25/19 25 Active prenat.vits,stan, nbg-rjyi-eninf tablet Take 1 tablet by mouth daily [...] drink = 0.6 oz pur e alcohol) [facility] Utilities Answer Date Recorded In [...] often do you attend chur ch or worship services? Never 09/16/2024 Do you belong to any clubs o r organizations such as amish groups, unions, fraternal or athletic groups, or [...] any time in the past 12 m [facility], were you homeless or living in a [...] on file Legal Sex Female 10:53 PM [employer]IN[employer] Gender Identity Not on file Sexual Orientation [...] Screening Completed 1994 , 1994, 1994 Insurance [facility] Advance Directives For more information, please contact: [phone] * Full Code (Latest Code Status on File) Date Activated Date Inactivated Comments 09/16/2024 12:49 AM 09/17/2024 4:19 PM Healthcare Agents on File Name Relationship Healthcare Agent Nakiaky p Communication September Lois Mother Health Care Agent Charles Jefferson Friend First Alternate Health Care Agent Care Teams Quartz Orientator Relationship Specialty Start Date End Date Trinidad iDal MD [address] [place] [address] PCP - General Internal Medicine 08/24/24
== END 2025-04-06 16:06 | disposition home or self-care (01) ==
LOC: ANHLAB 16:06
PROVIDERS: Visit Provider Student in an Organized Health Care Education/Training Program
DX: Z30.49 Encounter for surveillance of other contraceptives (principal)
CPT/HCPCS: 36415; 84702

== ENCOUNTER 2025-04-22 17:38 | Emergency (ER) | payer OTHER, SELFPAY ==
--- OUTSIDE RECORDS SUMMARY | 2023-12-11 02:40 | XMS_ITS ---
Author Organization [facility] Address [address] [place] [address] Care Team Providers Care Digital Marketing Program Manager Name Role Phone Lo Castro Primary Care Provider Sierra Bhatt [phone] REASON FOR VISIT having Selene Blanchard patient Medications Medication SIG (Take, Route, Frequency, Duration) Notes Start Date End Date Status hydrOXYzine Pamoate 25 MG 1 capsule as n eeded Orally One to two times daily; Duration: 30 days Active busPIRone HCl 15 MG as directed Orally H jovanna a tablet in the morning AND one full tablet in the evening; Duration: 30 days Activ e Wellbutrin XL 300 MG 1 tablet in the mor kimmy Orally Once a day; Duration: 30 days Active traZODone HCl 50 MG 1 tablet at bedtime as needed Orally Once a day; Duration: 30 days Active Encounters Encounter Location Date Provider Diagnosis [address] [address] 12/11/2023 Sierra Bhatt Plan Of Treatment No Information Progress Notes * Dodie GILBERTDOB:[birth year] (30 yo F)Acc No.[id number]:12/11/2023 UNLOCKED PROGRESS NOTE Patient: Abelardo ALFREDMARYDodie Provider: Kathy Bhatt DNP, RETAIL CHAIN STORE AREA SUPERVISOR, PMHNP-BC :1995 A ge:28 Y S ex:Female Date:12/11/2023 Address:[address] [place] [address] [facility] Pcp:Lo Castro Check In:08:40 AM QUARTZ CUTTER Subjective: * Chief Complaints: * 1 . having - Lo patient. * Medical History: * Medications: T aking Wellbutrin XL 300 MG Tablet Extended Release 24 Hour 1 tablet in the morning Orally Once a day , Taking traZODone HCl 50 MG Tablet 1 tablet at bedtime as needed Orally Once a day , Taking hydrOXYzine Pamoate 25 MG Capsule 1 capsule as needed Orally One to two times daily , Taking busPIRone HCl 15 MG Tablet as directed Orally Half a tablet in the morning AND one full tablet in the evening Objective: * Vitals: Assessment: Plan: * Treatment: * * Electronic signature of Tabitha Galloway , [id number] on 04/23/2025 at 03:28 PM QUARTZ CUTTER Sign off status: Pending * Provider: Kathy Bhatt DNP, RETAIL CHAIN STORE AREA SUPERVISOR, PMHNP- Date: 0 12/11/2023 Generated for Printing/Faxing/eTransmitting on: 06/23/2024 03:28 PM QUARTZ CUTTER
--- OUTSIDE RECORDS SUMMARY | 2024-04-14 09:40 | XMS_ITS ---
Author Organization [facility] Address [address] [place] [address] Care Team Providers Care Cable Splicing Technician Name Role Phone Lo Castro Primary Care Provider REASON FOR VISIT 6 month f/u Encounters Encounter Location Date Provider Diagnosis [address] [place] [address] 04/14/2024 Lo Castro Plan Of Treatment No Information Progress Notes * Dodie GILBERTDOB:[birth year] (30 yo F)Acc No.[id number]:04/14/2024 UNLOCKED PROGRESS NOTE Patient: Dodie LARSON Provider: LEATHA Merrill, TRAVELING OPERATOR, PACKING ROOM WORKER-C :1995 A ge:29 Y S ex:Female Date:04/14/2024 Address:[address] [place], [place] [id number] Subjective: * Chief Complaints: * 1 . 6 month f/u. * Medical History: Objective: * Vitals: Assessment: Plan: * Treatment: * * Electronic signature of Devon Castro , [id number] on 04/23/2025 at 03:28 PM PLATE MOLDER Sign off status: Pending * Provider: LEATHA Merrill, TRAVELING OPERATOR, PACKING ROOM WORKER-C Date: Generated for Printi ng/Fasharong/eTransmitting on: 1 06/23/2024 03:28 PM PLATE MOLDER
[2025-04-22 17:58] VITALS: BP 131/93; PULSE 91; RESP 18; TEMP 36.6; O2SAT 98
--- NOTE | 2025-04-22 19:22 | ED_ITS ---
HPI - General Adult General Chief complaint: Eye Problems Stated complaint: EYE INFECTION Time Seen by Provider: 04/22/25 19:00 History of Present Illness HPI narrative: This is a 30-year-old female presenting with right eye irritation. Patient is 11-week-old child and her sister both have conjunctivitis. Patient developed eye irritation earlier today. No eye pain. No visual changes. No fevers or URI symptoms. Related Data Home Medications ?Medication ?Instructions ?Recorded ?Confirmed ?Last Taken ?Type vits no.126-ferrous fum 1 tablet PO DAILY 01/26/25 01/25/25 13:00 History 28 mg iron-folic acid 800 mcg tablet (Classic ) Allergies Allergy/AdvReac Type Severity Reaction Status Date / Time No Known Allergies Allergy Verified 04/22/25 17:42 [facility] Past Medical History Medical History Self-harm Anxiety and depression Morbid obesity and not yet delivered Bipolar disorder History of substance abuse Patient denies medical problems Surgical History Surgical History History of delivery H/O dilation and curettage Family History Family History Mother Diabetes mellitus Social History Social History Tobacco type: e-cigarettes/vaping Alcohol intake: former Alcohol use details: social Substance use: former Substance use type: marijuana Last use: daily Do You Feel Safe in your Home?: Yes Lack of Transportation: No Lack of Food: Never True Current Housing: I Have Housing Concerned About Future Housing: No Difficulty Paying Gas/Electric Bills: No Difficulty Paying for Meds: No Currently Unemployed: No Education: Grade School Difficulty w/ Childcare or Family Care: No Living arrangements: with roommate(s) Occupation/Education: occupation Gender identity (if verbalized by the patient): Female Sexual Orientation (if Verbalized by the Patient): Straight or Heterosexual Spiritual care concerns: No Exam Narrative: APPEARANCE: No apparent distress. Head: atraumatic. EYES: EOMI, ANDERSON, Minor Conjunctival injection NOSE: Atraumatic NECK: Trachea midline RESPIRATORY: No increased rate of breathing CARDIOVASCULAR: RRR, ABDOMINAL: Non-distended MUSCULOSKELETAl: No obvious deformities NEURO: Alert. Moving 4/4 extremities SKIN:: Warm, dry. Normal color PSYCHIATRIC: Normal affect Course Vital Signs Vital signs: Vital Signs Temperature 97.9 F 04/22/25 17:58 Pulse Rate 91 04/22/25 17:58 Respiratory Rate 18 04/22/25 17:58 Blood Pressure 131/93 H 04/22/25 17:58 Pulse Oximetry 98 04/22/25 17:58 Temperature 97.9 F 04/22/25 17:58 Pulse Rate 91 04/22/25 17:58 Respiratory Rate 18 04/22/25 17:58 Blood Pressure 131/93 H 04/22/25 17:58 Pulse Oximetry 98 04/22/25 17:58 Medical Decision Making MDM Narrative Medical decision making narrative: -Course: 30-year-old female presenting with eye irritation setting conjunctivitis going through her household. No visual changes. No eye to pain. Conjunctiva injection is minimal. Patient will be discharged on Ocuflox. She will follow up the primary care physician for further management. Given return precautions for eye pain or loss of vision -DDX includes but is not limited to: viral conjunctivitis, bacterial conjunctivitis Vital Signs Vital Signs: Vital Signs Temperature 97.9 F 04/22/25 17:58 Pulse Rate 91 04/22/25 17:58 Respiratory Rate 18 04/22/25 17:58 Blood Pressure 131/93 H 04/22/25 17:58 Pulse Oximetry 98 04/22/25 17:58 Temperature 97.9 F 04/22/25 17:58 Pulse Rate 91 04/22/25 17:58 Respiratory Rate 18 04/22/25 17:58 Blood Pressure 131/93 H 04/22/25 17:58 Pulse Oximetry 98 04/22/25 17:58 Discharge Plan Discharge Clinical Impression: Conjunctivitis Patient Disposition: Home Condition: Stable Instructions: Antibiotic Form Additional Instructions: please use the eyedrops as instructed. Do not were contact lenses until your infection has cleared. Please follow-up with your primary care physician in the next 2-3 days for re-evaluation. If you develop eye pain or loss of vision or your symptoms are getting worse please return to the ED for re-evaluation. Please wash her hands frequently as conjunctivitis is very infectious. Patient Language: New Zealander Prescriptions: New ofloxacin [Ocuflox] 0.3 % drops See Rx Instructions .ROUTE .COMPLEX Qty: 5 0RF Rx Instructions: put 1-2 drps into affected eye(s) every 2-4 h x 2 days, then 1-2 drps 4 times/day days 3-7 No Action Classic 28 mg iron- 800 mcg tablet 1 tablet PO DAILY metoclopramide HCl [Reglan] 5 mg tablet 5 mg PO DAILY Qty: 30 1RF ibuprofen 600 mg tablet 600 mg PO Q6H PRN (Reason: pain) Qty: 30 0RF sennosides-docusate sodium [Senna with Docusate Sodium] 8.6-50 mg tablet 1 tab-cap PO HS Qty: 30 0RF Follow-up/Referrals: Yojana,MD Ramandeep [Primary Care Provider, Unknown] - 2 Days Referral Note: conjunctivitis Stand Alone Forms: Work/School Release IP
--- OUTSIDE RECORDS SUMMARY | 2025-04-23 15:28 | XMS_ITS | Patient Health Record ---
Author Organization [facility] Address [address] [place] [address] Care Team Providers Care Casework Specialist Name Role Phone Lo Castro Primary Care Provider Allergies No Known Allergies Reason For Referral No Information Medications Medication SIG (Take, Route, Frequency, Duration) Notes Start Date End Date Status Wellbutrin XL 150 MG 1 tablet in the mor kimmy Orally Once a day; Duration: 30 days Active busPIRone HCl 15 MG as directed Orally H mcfp a tablet in the morning AND one [...] Status Risk Notes Problem Generalized anxiety disorder (56766660) Generalized anxiety disorder (F41.1) Active confirmed Problem Major depression (283768464) Major depression (F32.9) Active confirmed continue to eval for bipolar chemistry Problem Methamphetamine abuse (336181875) Methamphetamine abuse (F15.10) Active confirmed reports no use since first week of September 2022 Problem Sleep disturbance (12476153) Sleep disturbance, unspecified (G47.9) Active confirmed Encounters Encounter Location Date Provider Diagnosis [address] [place] [address] 06/24/2024 Lo Castro Plan Of Treatment No Information Insurance Providers Payer Name Payer Address Payer Phone Subscriber Number Group Number Insured Name Patient Relationship to Insured Coverage Start Date Coverage End Date [employer] [address] [place] [phone] [id number] Dodie Rashid Self - patient is the insured 3 [employer] [address] [place] [address] [id number] Dodie Rashid Self - patient is the insured 3 Medical (General) History Surgical History Surgery Date(Month/Year) tubing surgery (1 year old) 1994 dilatation and curettage (miscarriage) 2 016 Hospitalization History Reason Date(Month/Year) [facility] 2021 [facility] [place] 2022
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
== END 2025-04-22 19:53 | disposition home or self-care (01) ==
PROVIDERS: Emergency Provider Emergency Medicine; PCP Internal Medicine
DX: H10.9 Unspecified conjunctivitis (principal); E66.01 Morbid (severe) obesity due to excess calories; Z68.39 Body mass index [BMI] 39.0-39.9, adult; F17.290 Nicotine dependence, other tobacco product, uncomplicated
CPT/HCPCS: 99283